=== PATIENT | female | born 1965 | race Caucasian/White ===

== ENCOUNTER → 2016-03-19 | Outpatient (CLI) | payer OTHER ==
[~2016-03-19] MED LIST: AMIT25TA9 PO; CLIN300C3 PO; GADOBUTROL 7.5 MMOL/7.5 ML (GADAVIST) VIAL IV ONE; HYDR-3454 PO; LVT.1T PO; PRD20T PO; PREG50C PO; SERT50TA PO
--- OUTSIDE RECORDS SUMMARY | 2016-03-19 14:01 | XMS REPORT | Continuity of Care Document ---
Author Author [facility] Organization [facility] Address Unknown Phone Unavailable Care Team Providers Care Smelter Operator Name Role Phone BENJIE AMANDA MD PCP Insurance Providers Payer Name Policy Number Subscriber Name Relationship [employer] [place] [id number] Gem Robledo 18 Self / Same As Patient Advance Directives Directive Response Recorded Date/Time Advance Directives No 10/18/14 6:45am Health Care Power of Java Android Developer No 10/18/14 6:45am Organ Donor Yes 10/18/14 6:45am Problems No problem information available. Medications Current Home Medications Medication Dose Units Route Directions Days/Qty Instructions Start Date Pregabalin 50 Mg 50 Mg Oral Twice A Day 08/12/11 Sertraline Hcl 50 Mg 1 Tab Oral Daily 30 08/12/11 Levothyroxine Sodium 100 Mcg 1 Each Oral Daily 08/12/11 Amitriptyline Hcl 25 Mg 25 Mg Oral Daily 10/11/14 Hydrocodone/Acetaminophen 1 Each 1-2 Each Oral Every 4HRS 40 10/18/14 Prednisone 20 Mg 20 Mg Oral Daily 12 TAKE 3 TABLETS BY MOUTH DAILY FOR 2 DAYS THEN TAKE 2 TABLETS BY MOUTH DAILY FOR 2 DAYS THEN TAKE 1 TABLET BY MOUTH DAILY FOR 2 DAYS 10/18/14 Clindamycin Hcl 300 Mg 300 Mg Oral Three Times A Day 21 10/18/14 Social History Social History Problem Response Recorded Date/Time Alcohol Use Denies Use 10/18/2014 6:45am Recreational Drug Use No 10/18/2014 6:45am Recent Foreign Travel No 12/25/2015 8:46am Sexually Transmitted Disease No 10/18/2014 6:45am HIV/AIDS No 10/18/2014 6:45am Sexually Transmitted Disease No 10/18/2014 6:45am Hx Sexually Transmitted Disorders No 11/15/2008 7:30am Hospital Discharge Instructions No hospital discharge instructions. Plan of Care Prescriptions See Medication Section Functional Status No functional status results. Allergies, Adverse Reactions, Alerts No known allergies. Immunizations No immunization records. Vital Signs No known vital signs results. Results No known relevant diagnostic tests, laboratory data and/or discharge summary. Procedures No known history of procedures. Encounters Encounter Location Arrival/Admit Date Discharge/Depart Date Attending Provider Discharged Recurring [facility] 01/15/16 9:01am 3:40pm BENJIE AMANDA MD
--- NOTE | 2016-03-19 15:24 | Diagnostic Imaging Report ---
CLINICAL INDICATION: Patient had intermittent memory issues x4-5 years and peripheral neuropathy in both legs/feet x7-8 years. Patient is pre-diabetic. Patient has concern with multiple sclerosis. EXAM: MRI of the brain performed without and with 7 cc of Gadavist IV contrast. Sequences include axial DWI, ADC map, axial gradient echo, axial T2, axial FLAIR, sagittal FLAIR, axial T1, axial T1 post IV contrast, coronal T1 fat-sat post IV contrast, and sagittal T1 post IV contrast. COMPARISON: MRI of the brain performed without and with IV contrast dated 09/14/2012. FINDINGS: There is no evidence of acute cerebral infarct, intracranial hemorrhage, abnormal IV contrast enhancement, or gross mass effect. Stable nonenhancing patchy areas of high T2 signal white matter changes involving both cerebral hemispheres, periventricular regions, and tony. The pituitary gland, sella, and suprasellar regions are unremarkable as visualized. There is normal trimble-white matter distinction. The brain parenchymal volume appears appropriate for patient's age. There is no significant midline shift or herniation. The visualized kiana of Wing vascular structures have normal flow void appearance. There is no evidence of hydrocephalus. The basal cisterns are unremarkable. The skull, extracranial soft tissue, and orbits are unremarkable. There is moderate mucosal thickening in the right maxillary sinus. There is minimal mucosal thickening involving the left maxillary sinus and ethmoid sinus. IMPRESSION: 1: Stable MRI of the brain with no evidence of acute intracranial process. There is no evidence of abnormal IV contrast enhancement. 2: Stable nonspecific high T2 signal white matter abnormalities involving both cerebral hemispheres and tony. Chronic small vessel ischemic disease could be considered. A superimposed component of a demyelinating process cannot be completely excluded. Clinical correlation would better evaluate. 3: Paranasal sinus disease. Dictated by: Dictated on workstation # [id number]
== END ==
LOC: RAD 13:58
PROVIDERS: ATTEND Family Medicine
DX: G62.9 Polyneuropathy, unspecified (principal); R20.0 Anesthesia of skin; R73.03 Prediabetes
CPT/HCPCS: 70553

== ENCOUNTER → 2016-05-18 | Outpatient (CLI) | payer OTHER ==
[~2016-05-18] MED LIST changes: -GADOBUTROL 7.5 MMOL/7.5 ML (GADAVIST) VIAL IV ONE
--- OUTSIDE RECORDS SUMMARY | 2016-05-18 09:56 | XMS REPORT | Continuity of Care Document ---
Author Author [facility] Organization [facility] Address Unknown Phone Unavailable Care Team Providers Care Landing Signal Officer Name Role Phone BENJIE AMANDA MD PCP Insurance Providers Payer Name Policy Number Subscriber Name Relationship [employer] [place] [id number] Gem Robledo 18 Self / Same As Patient Advance Directives Directive Response Recorded Date/Time Advance Directives No 10/18/14 6:45am Health Care Power of Team Automobile Assembler No 10/18/14 6:45am Organ Donor Yes 10/18/14 [...] Attending Provider Discharged Recurring [facility] 01/15/16 9:01am 3:40pm BENJIE AMANDA MD
--- NOTE | 2016-05-18 16:06 | Diagnostic Imaging Report ---
PROCEDURE: US Thyroid. TECHNIQUE: Multiple real-time grayscale images were obtained of the thyroid in various projections. INDICATION: Follow-up thyroid nodule. FINDINGS: The right thyroid lobe is 4.4 x 1.6 x 1.2 cm. The left lobe is 4.8 x 1.3 x 1.5 cm. In the inferior aspect of the left thyroid lobe there is a 2.3 x 1.2 x 1.6 cm isoechoic solid nodule with internal vascularity demonstrated with color Doppler. There is another nodule in the left lobe measuring 0.7 x 0.9 x 1.3 cm seen in the mid left thyroid lobe. This is a hypoechoic nodule and does not have definitive internal vascularity. This nodule could be outside the thyroid abutting the left thyroid lobe and is unchanged from the previous study. This could represent a parathyroid nodule. The right lobe demonstrates two nodules, one measuring 0.6 x 0.5 x 0.7 cm and the other measuring 0.7 x 0.6 x 0.4 cm both in the mid right thyroid lobe and both appear to contain calcifications. These are not changed significantly from prior exam of 04/11/2015. IMPRESSION: Stable multiple thyroid nodules. The hypoechoic nodule abutting the left thyroid lobe might be outside the thyroid and could be a parathyroid nodule. Dictated by: Dictated on workstation # [id number]
== END ==
LOC: RAD 09:54
PROVIDERS: ATTEND Otolaryngology Otolaryngology/Facial Plastic Surgery
DX: E04.2 Nontoxic multinodular goiter (principal)
CPT/HCPCS: 76536

== ENCOUNTER → 2016-08-18 | Outpatient (CLI) | payer OTHER ==
--- NOTE | 2016-08-19 17:53 | Diagnostic Imaging Report ---
Bilateral screening mammogram The current study was also evaluated with a Computer Aided Detection (CAD) system. Indication: Screening. No current complaints stated on the questionnaire. COMPARISON: 05/28/15 Findings: The breasts are composed of a heterogeneously dense parenchyma which may decrease mammographic sensitivity. There is a no mass, architectural distortion or suspicious consent the patient. Scattered benign-appearing calcifications are seen. Allowing for technique and positional differences, no suspicious change is seen. IMPRESSION: Dense breasts with no definite change. ACR BI-RADS Category 2: Benign findings. Result letter will be mailed to the patient. Note: At least 10% of breast cancer is not imaged by mammography. Dictated by: Dictated on workstation # [id number]
== END ==
LOC: RAD 08:55
PROVIDERS: ATTEND Nurse Practitioner Family
DX: Z12.31 Encounter for screening mammogram for malignant neoplasm of breast (principal)
CPT/HCPCS: 77067

== ENCOUNTER → 2017-05-04 | Outpatient (CLI) | payer OTHER ==
--- NOTE | 2017-05-04 11:35 | Diagnostic Imaging Report ---
PROCEDURE: US Thyroid. TECHNIQUE: Multiple real-time grayscale images were obtained of the thyroid in various projections. INDICATION: Thyroid nodules, followup. COMPARISON: Correlation is made with prior thyroid ultrasound from 05/18/2016. FINDINGS: The right lobe of the thyroid measures 4.1 x 1.7 x 1.2 cm and left lobe measures 4.8 x 1.3 x 1.3 cm. The solid isoechoic mass involving the lower pole of the left lobe of the thyroid is again noted measuring 2.3 x 1.3 x 1.6 cm. This compares with 2.3 x 1.2 x 1.6 cm. The previously noted hypoechoic nodule along the margin of the left lobe measures 0.7 x 0.9 x 1.3 cm, stable when compared with prior exam. There is a single nodule in the mid portion of the right lobe measuring approximately 0.7 x 0.6 x 0.6 cm. Previously noted second nodule in the right lobe is not appreciated on today's exam. No new thyroid nodule is identified. IMPRESSION: Overall stable bilateral thyroid nodules when compared with prior examination from 05/18/2016. Dictated by: Dictated on workstation # [id number]
== END ==
LOC: RAD 09:32
PROVIDERS: ATTEND Otolaryngology Otolaryngology/Facial Plastic Surgery
DX: E04.2 Nontoxic multinodular goiter (principal)
CPT/HCPCS: 76536

== ENCOUNTER → 2017-06-10 | Outpatient (CLI) | payer OTHER ==
--- NOTE | 2017-06-10 10:50 | Diagnostic Imaging Report ---
PROCEDURE: CT sinuses without contrast TECHNIQUE: Multiple contiguous axial images were obtained through the sinuses without the use of intravenous contrast. Coronal and sagittal reformations were then performed. INDICATION: Chronic left sinus drainage. FINDINGS: The previous CT sinus exam of 01/11/2017 noted mucosal thickening and polyposis of the right maxillary antrum. There is also a postsurgical defect involving the medial wall of the right maxillary antrum. Those findings are again evident on this study and do not seem to have changed significantly. The mucosal thickening and suspected polyp measure approximately 1.2 cm maximum depth. At noted on the prior exam, the left maxillary sinus is generally clear and well aerated. The ostiomeatal complex on the left is patent. The ethmoid, sphenoid and frontal sinuses are also clear. The nasal septum is slightly deviated to the right. The osseous structures are intact. The orbits are symmetrical and within normal limits. The intracranial contents were visualized and show no sign of an acute abnormality. IMPRESSION: 1. There are postsurgical changes involving the right maxillary antrum consistent with prior right maxillary antrostomy procedure. There is persistent mucosal thickening and polyposis of the right maxillary antrum. Overall, there has been no significant change since the prior exam. 2. The sinuses are otherwise clear and well aerated. Dictated by: Dictated on workstation # [id number]
== END ==
LOC: RAD 08:20
PROVIDERS: ATTEND Otolaryngology Otolaryngology/Facial Plastic Surgery
DX: J34.89 Other specified disorders of nose and nasal sinuses (principal); Z93.8 Other artificial opening status
CPT/HCPCS: 70486

== ENCOUNTER → 2017-09-02 | Outpatient (CLI) | payer OTHER ==
--- NOTE | 2017-09-02 13:35 | Diagnostic Imaging Report ---
INDICATION: Routine screening. Comparison is made with prior mammogram from 08/18/2016 and 05/28/2015. 2-D and 3-D bilateral screening mammography was performed with CAD. The current study was also evaluated with a Computer Aided Detection (CAD) system. FINDINGS: Both breasts remain heterogeneously dense, limiting the sensitivity of mammography. No mass or malignant-appearing microcalcifications are seen. The axillae are unremarkable. IMPRESSION: No mammographic features suspicious for malignancy are identified. ACR BI-RADS Category 1: Negative. Result letter will be mailed to the patient. Note: At least 10% of breast cancer is not imaged by mammography. Dictated by: Dictated on workstation # [id number]
== END ==
LOC: RAD 08:00
PROVIDERS: ATTEND Nurse Practitioner Family
DX: Z12.31 Encounter for screening mammogram for malignant neoplasm of breast (principal)
CPT/HCPCS: 77067

== ENCOUNTER → 2017-10-19 | Outpatient (CLI) | payer OTHER ==
[~2017-10-19] MED LIST changes: +ASPI-586 PO; +ATOR10TA66 PO; +CATHETER FLUSH 10 ML SYR IV PRN; +CETI10TA17 PO; +CHOL100045 PO; +CINN500C2 PO; +FERR142T7 PO; +GUAI600T43 PO; +LEVO100T7 PO; +NF-MAG64T PO; +PREG50CA2 PO; +SERT50TA9 PO; +tumeric PO
[2017-10-19 09:46] VITALS: BP 123/68
[2017-10-19 09:53] VITALS: BP 172/78
--- NOTE | 2017-10-19 18:53 | STRESS TEST ---
DATE OF SERVICE: 10/19/2017 EXERCISE MYOVIEW STRESS TEST REPORT Baseline heart rate is 65, baseline blood pressure 113/78. Baseline EKG sinus rhythm with no ischemic changes. SUMMARY: The patient was injected with 9.91 mCi of technetium-99 Myoview and the resting images were obtained. Then, the patient started exercising with a baseline heart rate, blood pressure and EKG mentioned above. Early in exercise, the patient started having EKG changes with ST depression in II, III, aVF, V4, V5 and V6. She was able to exercise for 6 minutes 57 seconds. With peak exercise level, EKG was showing [address] depression horizontal in leads II, III and aVF. [address] depression in V4, V5 and V6. Blood pressure was 146/67. During recovery, her EKG returned to baseline and blood pressure returned to baseline. The resting and stress images were reviewed and compared in the short axis, horizontal long axis, and vertical long axis views. Review of the images showed reversible ischemia involving the anterior wall, anteroapical segment and through apex. SSS is 20. SDS is 20, transient ischemic dilatation with TID value 1.41. On the gated images, the left ventricle is normal in size with normal contractility. Calculated ejection fraction 66%. CONCLUSION: 1. Fair exercise tolerance, a total of 6 minutes 57 seconds on standard Juan Alberto protocol, total of 8.3 METS achieving 90% of maximum expected heart rate. 2. Appropriate heart rate and blood pressure response to exercise returned to baseline during recovery. 3. Significantly abnormal EKG with exercise persisted to a long period of time during recovery and resolved at the end of the test. 4. Reversible ischemia involving the whole anterior wall, anteroapical segment and anterior septum. 5. Normal left ventricular size with normal contractility. Calculated ejection fraction of 66%. 6. The patient was offered to have a cardiac catheterization today, she elected to wait due to family obligation and she will return in 2 days for the procedure. Job ID: [id number] DocumentID: [id number] Dictated Date: 10/19/2017 14:01:31 Nut Processing Supervisor Date: 10/19/2017 18:52:41 Dictated By: MARK PERLA MD
== END ==
LOC: CARD 07:58
PROVIDERS: ATTEND Internal Medicine Cardiovascular Disease
DX: R07.89 Other chest pain (principal); E78.2 Mixed hyperlipidemia; R73.03 Prediabetes; E03.9 Hypothyroidism, unspecified; G62.9 Polyneuropathy, unspecified
CPT/HCPCS: 78452; 93005; 93017

== ENCOUNTER 2017-10-21 07:34 | Day surgery (SDC) | payer OTHER ==
[2017-10-21] VITALS (12 sets, daily range): BP systolic 112–137; BP diastolic 72–83
[~2017-10-21] VITALS: Ht 170.2 cm; Wt 81.2 kg
[~2017-10-21 07:34] MED LIST changes: -ASPI-586 PO; -ATOR10TA66 PO; -CATHETER FLUSH 10 ML SYR IV PRN; -CETI10TA17 PO; -CHOL100045 PO; -CINN500C2 PO; -FERR142T7 PO; -GUAI600T43 PO; -LEVO100T7 PO; -NF-MAG64T PO; -PREG50CA2 PO; -SERT50TA9 PO; -tumeric PO
[2017-10-21] MEDS ORDERED: HEParin (CATH LAB) 2,000 ML IV ONE (07:50)
[2017-10-21] MEDS ORDERED: LIDOCAINE 1% INJ 20 ML 20 ML VIAL ONE (07:50)
[2017-10-21] MEDS ORDERED: NS IV 1000 ML 1,000 ML ONE (07:50)
[2017-10-21] MEDS ORDERED: NS IV 1000 ML 1,000 ML IV SCH (07:56)
--- NOTE | 2017-10-21 08:25 | Diagnostic Imaging Report ---
INDICATION: Coronary artery disease PA chest obtained at 8:17 a.m. Heart and mediastinal silhouette are normal in appearance. The lungs are clear. There is no pneumothorax or pleural fluid. IMPRESSION: Negative chest. Dictated by: Dictated on workstation # [id number]
[2017-10-21 08:28] LABS: HEMOGLOBIN 12.6 G/DL (11.5-16.0); MEAN PLATELET VOLUME 9.6 FL (7.4-10.4); RED BLOOD COUNT 4.31 10^6/uL (4.35-5.85); RED CELL DISTRIBUTION WIDTH 12.8 % (10.0-14.5); WHITE BLOOD COUNT 6.4 10^3/uL (4.3-11.0)
[2017-10-21] MEDS ORDERED: PREG50CA2 PO (08:34)
[2017-10-21] MEDS ORDERED: LEVO100T7 PO (08:35)
[2017-10-21] MEDS ORDERED: SERT50TA9 PO (08:35)
[2017-10-21] MEDS ORDERED: ATOR10TA66 PO (08:36)
[2017-10-21] MEDS ORDERED: ASPI-586 PO (08:36)
[2017-10-21 08:37] LABS: PROTHROMBIN TIME PATIENT 13.3 SEC (12.2-14.7)
[2017-10-21] MEDS ORDERED: CHOL100045 PO (08:37)
[2017-10-21] MEDS ORDERED: tumeric PO (08:39)
[2017-10-21] MEDS ORDERED: NF-MAG64T PO (08:39)
[2017-10-21] MEDS ORDERED: FERR142T7 PO (08:39)
[2017-10-21] MEDS ORDERED: CETI10TA17 PO (08:40)
[2017-10-21] MEDS ORDERED: CINN500C2 PO (08:41)
[2017-10-21] MEDS ORDERED: GUAI600T43 PO (08:41)
[2017-10-21 08:46] LABS: ALANINE AMINOTRANSFERASE 23 U/L (0-55); ALBUMIN 4.6 GM/DL (3.2-4.5); ALKALINE PHOSPHATASE 73 U/L (40-136); BILIRUBIN,TOTAL 0.3 MG/DL (0.1-1.0); BUN/CREATININE RATIO 24; CALCIUM 9.6 MG/DL (8.5-10.1); CARBON DIOXIDE 27 MMOL/L (21-32); CHLORIDE 105 MMOL/L (98-107); CHOLESTEROL 168 MG/DL (< 200); CREATININE SERUM 0.58 MG/DL (0.60-1.30); GFR ESTIMATED > 60; GLUCOSE 76 MG/DL (70-105); HDL CHOLESTEROL 48 MG/DL (40-60); POTASSIUM 4.1 MMOL/L (3.6-5.0); SODIUM 141 MMOL/L (135-145); TOTAL PROTEIN 7.4 GM/DL (6.4-8.2); TRIGLYCERIDES 178 MG/DL (<150); VLDL CHOLESTEROL 36 MG/DL (5-40)
[2017-10-21] MEDS ORDERED: MIDAZOLAM 5 MG/5 ML (VERSED) VIAL ONE (09:15)
[2017-10-21] MEDS ORDERED: fentaNYL INJECTION 100 MCG/2 ML AMP ONE (09:15)
--- NOTE | 2017-10-21 09:48 | Cardiac Procedure Note-CS/ASA ---
Pre-Procedure Note Pre-Op Procedure Note H&P Reviewed The H&P was reviewed, patient examined and no changes noted. Date H&P Reviewed: Oct 21, 2017 Time H&P Reviewed: 09:47 Conscious Sedation Pre-Proced Time Reviewed: 09:47 ASA Class: 3 Airway Mallampati Classification: ([place] appropriate class) I. II. III, IV Lungs Heart ASA score ASA 1: a normal healthy patient ASA 2: a patient with a mild systemic disease (mid diabetes, controlled hypertension, obesity x ASA 3: a patient with a severe systemic disease that limits activity (angina , COPD, prior Myocardial infarction) ASA 4: a patient with an incapacitating disease that is a constant threat to life (CHF, renal failure) ASA 5: a moribund patient not expected to survive 24 hrs. (ruptured aneurysm) ASA 6: a declared brain patient whose organs are being harvested. For emergent operations, add the letter E after the classification Grade 3 Sedation Plan: Analgesia, Amnesia, Plan communicated to team members, Discussed options with patient/fam, Discussed risks with patient/fam Note The patient is an appropriate candidate to undergo the planned procedure, sedation, and anesthesia. The patient immediately re-assessed prior to indication. MARK PERLA MD Oct 21, 2017 09:48
[2017-10-21] MEDS ORDERED: HEParin 1000 UNIT/ML (10ML VIAL) FOR BOLUS ONE (09:52)
[2017-10-21] MEDS ORDERED: EPTIFIBATIDE BOLUS 20 ML IV ONE (09:52)
[2017-10-21] MEDS ORDERED: NITRO DRIP 25000 MCG/D5W 250 ML IV ONE (09:53)
[2017-10-21] MEDS ORDERED: ADENOSINE 3 MG/1 ML (ADENOSCAN) 30ML VIAL IV ONE (09:58)
[2017-10-21] MEDS ORDERED: PATIENT MAY USE OWN MEDS, ALL PO SCH (10:30)
--- NOTE | 2017-10-21 10:35 | Cardiac Cath Report ---
Cardiac Cath Report Physician (s)/Medical Practice Administrator (s) Physician MARK PERLA MD Pre-Procedure Diagnosis Pre-Procedure Diagnosis: coronary artery disease Post-Procedure Note Procedure Start Date: Oct 21, 2017 Procedure Start Time: 10:31 Name of Procedure: Left heart catheterization FFR to the circumflex artery Stent to the LAD Findings/Procedure Note PROCEDURE NOTE: After explaining the procedure to the patient, all pros and cons were explained , all questions were answered. The patient signed the consent and then she was placed on the cardiac catheterization laboratory. Groin was prepped SL fashion local anesthesia was used. Sheath placed in right femoral the artery. Regina right and left catheter were used to access the coronary system. Regina right was used to cross the aortic valve to the left ventricular cavity , pressure was measured. Left ventricular gram was done. Patient had a borderline lesion at the ostium of the circumflex artery I was concerned about it, I proceeded with FFR evaluation after giving the patient 5000 units of heparin and using FL guide. FFR was 1.0. Line patient has subtotal occlusion in the mid LAD. I proceeded with advancement of the same wire across the lesion parked distally then I predilated with 2.515 mm balloon and then proceeded with the appointment of 2.7518 mm ultra 9 drug-eluting stent expanded to 3.0 mm with excellent results. No residual stenosis was noted. At the end of the procedure the sheath was removed. Closure device was used FINDINGS: Hemodynamics LV 128/19, end-diastolic pressure of 19 Aorta 127/75 mean of 83 ANATOMY: Left Main history of obstructive disease Left Anterior Descending has severe subtotal occlusion at the mid LAD successful balloon antiplastic in-stent deployment using Alpine 2.7518 mm expanded to 3.0 mm with excellent results Left Circumflex has some haziness at the proximal portion, FFR was 1.0. Lesion was nonobstructive disease Right Coronory Artery is not artery with mild disease nonobstructive disease LV Gram is normal in size with normal contracted isthmus ejection fraction 60 percent CONCLUSION: 1. Subtotal occlusion at the mid LAD with slow flow, successful balloon to plasty then stent deployment using Alpine 2.7518 mm expanded to 3.0 mm with excellent results and no residual stenosis was noted 2. Mild disease of the proximal/ostial circumflex artery, FFR was done showing 1.0. Nonobstructive disease 3. Large dominant right coronary artery with mild disease nonobstructive disease 4. Normal left ventricular size and systolic function estimated ejection fraction 60 percent DISCUSSION AND RECOMMENDATION: I will continue maximizing medical therapy Anesthesia Type: Conscious Sedation Estimated blood loss (mL): 10 ml Contrast Amount: 140 ml Total Radiation Dose: 1067 mGy Post-Procedure Diagnosis Post-operative diagnosis: Chest pain Coronary artery disease Hyperlipidemia Hypertension MARK PERLA MD Oct 21, 2017 10:35
[2017-10-21] MEDS ORDERED: ASPIRIN 325 MG (5 GR) TABLET ONE (10:41)
[2017-10-21] MEDS ORDERED: TICAGRELOR 90 MG TABLET (BRILINTA) PO ONE (10:41)
[2017-10-21] MEDS: NS IV 1000 ML 1,000 ML IV SCH ×2 (11:23→19:36)
[2017-10-21] MEDS ORDERED: ONDANSETRON 4 MG/2 ML (SDV) Z0FRAN ONE (12:55)
[2017-10-21] MEDS ORDERED: ONDANSETRON 4 MG/2 ML (SDV) Z0FRAN IVP PRN (13:00)
--- OUTSIDE RECORDS SUMMARY | 2017-10-21 16:21 | XMS REPORT | CCD ---
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 Name Role Phone PP Unavailable CCM Unavailable Summary Purpose Interface Exchange Insurance Providers Payer name Policy type / Coverage type Covered libertarian ID Effective Begin Date Effective End Date Blue Cross Blue [facility] Blue Cross/Blue Shield [id number] 2015 Unknown Family history Father Diagnosis Age At Onset Cancer Unknown Mother Diagnosis Age At Onset Stroke Unknown Social History Social History Element Codes Description Effective Dates Marital status Unknown Dennise 08/27/2014 Number of children Unknown 0 08/27/2014 Employment Unknown Currently employed [employer] 08/27/[address]: 171051231 Never smoker 08/27/[address]: 672160130 Never drinks alcohol 08/27/2014 Allergies, Adverse Reactions, Alerts Allergies, Adverse Reactions, Alerts data not found Past Medical History Illness Codes Condition Status Onset Date Resolved Date Atrophy of thyroid (acquired) ICD-9: 244.8 ICD-10: E03.4 Active 03/15/2016 Unknown Weakness ICD-9: 780.79 ICD-10: R53.1 Active 03/15/2016 Unknown White matter disease, unspecified ICD-9: 348.89 ICD-10: R90.82 Active 03/15/2016 Unknown Major depressive disorder, recurrent, mild ICD-9: 296.31 ICD-10: F33.0 Active 11/17/2015 Unknown Other abnormal glucose ICD-9: 790.29 ICD-10: R73.09 Active 11/17/2015 Unknown Psoriasis vulgaris ICD -9: 696.1 ICD-10: L40.0 Active 11/17/2015 Unknown Encounter for gynecological examination (general) (routine ) without abnormal findings ICD-9: V72.31 ICD-10: Z01.419 Active 05/05/2015 Unknown Encounter for screening for malignant neoplasm of cervix ICD-9: V76.2 ICD-10: Z12.4 Active 05/05/2015 Unknown Encounter for screening mammogram for malignant neoplasm of breast ICD-9: V76.12 ICD-10: Z12.31 Active 05/05/2015 Unknown Dysuria ICD-9: 788.1 Active 09/24/2014 Unknown ACUTE SINUSITIS ICD-9 : 461.9 Active 09/10/2014 Unknown Problems Condition Codes Effective Dates Condition Status Atrophy of thyroid (acquired) ICD-9: 244.8 ICD-10: E03.4 03/15/2016 Active Weakness ICD-9: 780.79 ICD-10: R53.1 03/15/2016 Active White matter disease, unspecified ICD-9: 348.89 ICD-10: R90.82 03/15/2016 Active Major depressive disorder, recurrent, mild ICD-9: 296.31 ICD-10: F33.0 11/17/2015 Active Other abnormal glucose ICD-9: 790.29 ICD-10: R73.09 11/17/2015 Active Psoriasis vulgaris ICD -9: 696.1 ICD-10: L40.0 11/17/2015 Active Encounter for gynecological examination (general) (routine ) without abnormal findings ICD-9: V72.31 ICD-10: Z01.419 05/05/2015 Active Encounter for screening for malignant neoplasm of cervix ICD-9: V76.2 ICD-10: Z12.4 05/05/2015 Active Encounter for screening mammogram for malignant neoplasm of breast ICD-9: V76.12 ICD-10: Z12.31 05/05/2015 Active Dysuria ICD-9: 788.1 09/24/2014 Active ACUTE SINUSITIS ICD-9 : 461.9 09/10/2014 Active Medications Medication Codes Instructions Start Date Stop Date Status Fill Instructions clobetasol 0.05 % shampoo RxNorm: 936095 1 Application TOP daily as needed 02/14/2017 09/11/2017 Active clobetasol 0.05 % scalp solution RxNorm: 644887 1 Application TOP BID 02/14/2017 06/13/2017 Active levothyroxine 100 mcg tablet RxNorm: 865315 TAKE ONE TABLET BY MOUTH ONCE DAILY 01/24/2017 No Stop Date Active Acular 0.5 % eye drops RxNorm: 390971 1 Drop(s) OPH daily 01/10 No Stop Date Active amitriptyline 10 mg tablet RxNorm: 890802 TAKE ONE TABLET BY MOUTH ONCE DAILY 12/15/2016 06/12/2017 Active Lipitor 10 mg tablet RxNorm: 043814 TAKE 1 TABLET BY MOUTH DAILY 12/02/2016 05/30/2017 Active Generic For:LIPITOR 10MG TAB 12/01/2016 5:09:29 PM Lipitor 10 mg tablet RxNorm: 058438 TAKE 1 TABLET BY MOUTH DAILY 11/04/2016 12/01/2016 Inactive Generic For:LIPITOR 10MG TAB 11/03/2016 12:46:39 PM sertraline 50 mg tablet RxNorm: 950332 1.5 Tablet(s) PO QHS 03/201605/02/2017 Active Lyrica 50 mg capsule RxNorm: 177838 1 Capsule(s) PO TID 201612/04/2016 Inactive Lyrica 50 mg capsule RxNorm: 182562 1 Capsule(s) PO TID 201612/01/2016 Inactive clobetasol 0.05 % scalp solution RxNorm: 957777 1 Application TOP BID 08/18/2016 12/15/2016 Inactive Lipitor 10 mg tablet RxNorm: 689519 1 Tablet(s) PO daily 201611/03/2016 Inactive Lipitor 10 mg tablet RxNorm: 533740 1 Tablet(s) PO daily 201603/24/2016 Inactive Lipitor 10 mg tablet RxNorm: 276142 1 Tablet(s) PO daily 201607/12/2016 Inactive sertraline 50 mg tablet RxNorm: 674494 1.5 Tablet(s) PO QHS 10/04/2016 Inactive amitriptyline 10 mg tablet RxNorm: 731011 1/2 Tablet(s) PO daily 03/16/2016 No Stop Date Active levothyroxine 100 mcg tablet RxNorm: 415756 TAKE ONE TABLET BY MOUTH ONCE DAILY 01/20/2016 2017 Inactive sertraline 50 mg tablet RxNorm: 489076 1.5 Tablet(s) PO QHS 03/18/2016 Inactive Generic For:ZOLOFT 50 MG TAB 03/17/2015 1:56:21 PM clobetasol 0.05 % scalp solution RxNorm: 675238 1 Application TOP BID 11/20/2015 03/18/2016 Inactive Lyrica 50 mg capsule RxNorm: 410067 1 Capsule(s) PO TID 201509/05/2016 Inactive sertraline 50 mg tablet RxNorm: 497232 1.5 Tablet(s) PO QHS 11/19/2015 Inactive Generic For:ZOLOFT 50 MG TAB 03/17/2015 1:56:21 PM urea 20 % topical cream RxNorm: 379104 1 Application TOP BID 12/17/2015 Inactive clobetasol 0.05 % scalp solution RxNorm: 888401 1 Application TOP BID 11/18/2015 11/19/2015 Inactive sertraline 50 mg tablet RxNorm: 748001 1 Tablet(s) PO QHS TAKE ONE TABLET BY MOUTH AT BEDTIME 10/20/2015 11/17/2015 Inactive Generic For:ZOLOFT 50 MG TAB 03/17 1:56:21 PM Acular 0.5 % eye drops RxNorm: 906945 1 Drop(s) OPH daily 09/0901/09/2017 Inactive amitriptyline 10 mg tablet RxNorm: 516801 Tablet(s) PO daily 03/15/2016 Inactive [SAVINGS FOR NON-COVERED DRUGS -- BIN:[id number], PCN: [id number], Group: XXXXX , ID# [id number], Questions: . THIS IS NOT INSURANCE.] levothyroxine 100 mcg tablet RxNorm: 662519 1 Tablet(s) PO daily 07/30/2015 01/19/2016 Inactive sertraline 50 mg tablet RxNorm: 000289 1 Tablet(s) PO QHS TAKE ONE TABLET BY MOUTH AT BEDTIME 06/17/2015 10/14/2015 Inactive Generic For:ZOLOFT 50 MG TAB 03/17 1:56:21 PM triamcinolone acetonide 0.1 % topical cream RxNorm: 2957617 1 TOP TID as needed 05/09/2015 09/05/2015 Inactive triamcinolone acetonide 0.1 % topical cream RxNorm: 5490714 1 TOP TID as needed 05/09/2015 05/08/2015 Inactive Transderm-Scop 1.5 mg transdermal patch (1 mg over 3 days) RxNorm: 578344 1 Patch TD Q72H 05/06/2015 07/04/2015 Inactive Lyrica 50 mg capsule RxNorm: 340202 1 Capsule(s) PO TID 201506/25/2016 Inactive sertraline 50 mg tablet RxNorm: 162410 TAKE ONE TABLET BY MOUTH AT BEDTIME 03/17/2015 06/14/2015 Inactive Generic For:ZOLOFT 50 MG TAB 03/17/2015 1:56:21 PM sertraline 50 mg tablet RxNorm: 156259 Tablet(s) PO QHS 201403/09/2015 Inactive doxycycline hyclate 100 mg tablet RxNorm: 387435 1 Tablet(s) PO BID 09/11/2014 09/17/2014 Inactive Sandy Allergy 180 mg tablet RxNorm: 737034 1 Tablet(s) PO daily 09/11/2014 10/10/2014 Inactive prednisone 20 mg tablet RxNorm: 797316 1 Tablet(s) PO BID 09/0509/04/2014 Inactive prednisone 20 mg tablet RxNorm: 916398 1 Tablet(s) PO BID 09/0509/09/2014 Inactive levofloxacin 500 mg tablet RxNorm: 991738 1 Tablet(s) PO daily 08/27/2014 09/05/2014 Inactive levothyroxine 100 mcg tablet RxNorm: 425688 1 Tablet(s) PO daily 08/27/2014 11/24/2014 Inactive Sandy-D 12 Hour 60 mg-120 mg tablet,extended release RxNorm: 280498 1 Tablet(s) PO BID 08/27/2014 09/25/2014 Inactive Lyrica 50 mg capsule RxNorm: 470868 1 Capsule(s) PO TID 201411/17/2014 Inactive Lyrica 50 mg capsule RxNorm: 653856 1 Capsule(s) PO TID 201408/19/2014 Inactive sertraline 50 mg tablet RxNorm: 810752 Tablet(s) PO QHS 201408/12/2014 Inactive sertraline 50 mg tablet RxNorm: 755916 Tablet(s) PO QHS 201410/11/2014 Inactive amitriptyline 10 mg tablet RxNorm: 471550 Tablet(s) PO daily 08/09/2014 Inactive [SAVINGS FOR NON-COVERED DRUGS -- BIN:[id number], PCN: ASPROD1, Group: XXXXX , ID# [id number], Questions: . THIS IS NOT INSURANCE.] Transderm-Scop 1.5 mg transdermal 72 hour patch RxNorm: 263305 1 TD apply 1 patch to skin behind ear q 3 days, remove old patch 07/11/2014 07/22/2014 Inactive [ SAVINGS FOR NON-COVERED DRUGS -- BIN:[id number], PCN: ASPROD1, Group: XXXXX, ID# [id number], Questions: . THIS IS NOT INSURANCE.] Transderm-Scop 1.5 mg transdermal 72 hour patch RxNorm: 745860 1 TD apply 1 patch to skin behind ear q 3 days, remove old patch 07/11/2014 07/10/2014 Inactive amitriptyline 10 mg tablet RxNorm: 323730 1 Tablet(s) PO daily 07/04/2014 07/10/2014 Inactive [SAVINGS FOR NON-COVERED DRUGS -- BIN:[id number], PCN: ASPROD1, Group: XXXXX, ID# [id number], Questions: . THIS IS NOT INSURANCE.] amitriptyline 10 mg tablet RxNorm: 892465 1 Tablet(s) PO daily 07/04/2014 07/03/2014 Inactive Zyrtec 10 mg tablet RxNorm: 6508936 1 Tablet(s) PO daily No Start Date Active lutein oral RxNorm: 84115 oral No Start Date Active Flonase Allergy Relief 50 mcg/actuation nasal spray, suspension RxNorm: 7895719 1 [place] NASAL QHS as needed No Start Date Active Vitamin D3 2,000 unit tablet RxNorm: 110253 1 Tablet(s) PO daily No Start Date Active Calcium RxNorm: 1 Tablet(s) PO daily No Start Date Active Gillian Aspirin oral RxNorm: 150291 oral No Start Date Active Acular 0.5 % eye drops RxNorm: 116746 1 Drop(s) OPH daily No Start Date 09/09/2015 Inactive Vitamin C RxNorm: PO No Start Date 2016 Inactive Medication Administered No Medication Administered data Immunizations No Immunization data Assessments Condition Codes Effective Dates Atrophy of thyroid (acquired) ICD-10: E03.4 ICD-9: 244.8 03/16/2016 White matter disease, unspecified ICD-10: R90.82 ICD-9: 348.89 03/16/2016 Weakness ICD-10: R53.1 ICD-9: 780.79 03/16/2016 Psoriasis vulgaris ICD-10: L40.0 ICD-9: 696.1 11/18/2015 Other abnormal glucose ICD-10: R73.09 ICD-9: 790.29 11/18/2015 Major depressive disorder, recurrent, mild ICD-10: F33.0 ICD-9: 296.31 11/18/2015 Encounter for screening for malignant neoplasm of cervix ICD -10: Z12.4 ICD-9: V76.2 05/06/2015 Encounter for gynecological examination (general) (routine) without abnormal findings ICD-10: Z01.419 ICD-9: V72.31 05/06/2015 Encounter for screening mammogram for malignant neoplasm of breast ICD-10: Z12.31 ICD-9: V76.12 05/06/2015 Dysuria ICD-9: 788.1 09/25/2014 ACUTE SINUSITIS ICD-9: 461.9 09/11/2014 Reason For Visit Reason For Visit Effective Dates Notes hypothyroid 03/16/2016 hypothyroid 11/18/2015 well woman exam (40-65 years) 05/06/2015 sinus congestion 09/25/2014 sinus congestion 09/11/2014 sinus congestion 08/27/2014 Results Observation Observation Code Item Item Code Result Date Lipid Ord30 CHOL 235 mg/dL 03/17/2016 Lipid Ord30 HDL 50.0 mg/dl 03/17/2016 Lipid Ord30 TRIG 191 mg/dL 03/17/2016 Lipid Ord30 LDL 147 mg/dL 03/17/2016 Lipid Ord30 C/HDL 4.7 Ratio 03/17/2016 Comp Metabolic Jup781 NA 137 mEq/L 03/17/2016 Comp Metabolic Lru749 K 4.2 mEq/L 03/17/2016 Comp Metabolic Zve767 CL 101 mEq/L 03/17/2016 Comp Metabolic Jge148 CO2 30.0 mEq/L 03/17/2016 Comp Metabolic Tok464 ANION GAP 10 03/17/2016 Comp Metabolic Pai545 GLUCOSE 93 mg/dL 03/17/2016 Comp Metabolic Ebj735 Creat 0.6 mg/dL 03/17/2016 Comp Metabolic Ypw376 eGFR 111 ml/min/1.73m2 03/17/2016 Comp Metabolic Hvk691 BUN 13 mg/dL 03/17/2016 Comp Metabolic Mqx871 B/C Ratio 21.7 Ratio 03/17/2016 Comp Metabolic Rgw354 CALCIUM 9.4 mg/dL 03/17/2016 Comp Metabolic Mwo918 ALK PHOS 68 U/L 03/17/2016 Comp Metabolic Ije343 AST(SGOT) 20 U/L 03/17/2016 Comp Metabolic Ubt428 ALT(SGPT) 21 U/L 03/17/2016 Comp Metabolic Gko738 BILI T 0.4 mg/dL 03/17/2016 Comp Metabolic Gtd956 ALBUMIN 4.4 g/dL 03/17/2016 Comp Metabolic Sgp666 TPRO 6.7 g/dL 03/17/2016 Comp Metabolic Bot564 GLOB 2.3 g/dL 03/17/2016 Comp Metabolic Vah260 A/G Ratio 2.0 Ratio 03/17/2016 Comp Metabolic Hik556 Osmo 274 mOsmo 03/17/2016 %Hba1C Dbo769 % HbA1c 55406-9 5.8 % 03/17/2016 %Hba1C Yfd891 Gluc Ave 120 mg/dL 03/17/2016 Tsh Ord6 hTSH II 4.13 uIU/mL 03/17/2016 Cbc With Differential Ord2 WBC 5.64 K/ul 03/17/2016 Cbc With Differential Ord2 RBC 4.29 M/ul 03/17/2016 Cbc With Differential Ord2 HGB 12.4 g/dl 03/17/2016 Cbc With Differential Ord2 HCT 37.9 % 03/17/2016 Cbc With Differential Ord2 Neut% 59.8 % 03/17/2016 Cbc With Differential Ord2 MCV 88.3 fl 03/17/2016 Cbc With Differential Ord2 Lymph% 25.7 % 03/17/2016 Cbc With Differential Ord2 MCH 28.9 pg 03/17/2016 Cbc With Differential Ord2 Sanders% 10.3 % 03/17/2016 Cbc With Differential Ord2 MCHC 32.7 pg 03/17/2016 Cbc With Differential Ord2 Eos% 3.7 % 03/17/2016 Cbc With Differential Ord2 Baso% 0.5 % 03/17/2016 Cbc With Differential Ord2 PLT 342 K/ul 03/17/2016 Cbc With Differential Ord2 RDW 13.8 % 03/17/2016 Cbc With Differential Ord2 Neut ABS# 3.37 K/ul 03/17/2016 Cbc With Differential Ord2 Lymph ABS# 1.45 K/ul 03/17/2016 Cbc With Differential Ord2 Sanders ABS# 0.6 K/ul 03/17/2016 Cbc With Differential Ord2 Eos ABS# 0.2 K/ul 03/17/2016 Cbc With Differential Ord2 Baso ABS# 0.0 K/ul 03/17/2016 Free T4 Wnk432 FREE T4 0.81 ng/dL 03/17/2016 %Hba1C Uqc503 % HbA1c 16879-1 6.3 % 11/19/2015 %Hba1C Dlv405 Gluc Ave 134 mg/dL 11/19/2015 %Hba1C Fha680 % HbA1c 19106-3 5.9 % 05/06/2015 %Hba1C Lav154 Gluc Ave 123 mg/dL 05/06/2015 Review of Systems System Result Effective Dates Constitutional No recent illness 2016 Constitutional No chills 03/16/2016 Constitutional No fatigue 03/16/2016 Constitutional No fever 03/16/2016 Constitutional No insomnia 03/16/2016 Constitutional No malaise 03/16/2016 Eyes No blindness 03/16/2016 Eyes No eye discharge 03/16/2016 Eyes No eye erythema 03/16/2016 Eyes No vision change 03/16/2016 Ears/Nose/Throat/Neck No dental pain 12/2016 Ears/Nose/Throat/Neck No dizziness 2016 Ears/Nose/Throat/Neck No dysphagia 2016 Ears/Nose/Throat/Neck No headache 2016 Ears/Nose/Throat/Neck No hearing loss 12/2016 Ears/Nose/Throat/Neck No nasal allergies 03/16/2016 Ears/Nose/Throat/Neck No nasal discharge 03/16/2016 Ears/Nose/Throat/Neck No sore throat 12/2016 Ears/Nose/Throat/Neck No postnasal drip 03/16/2016 Ears/Nose/Throat/Neck No sinus congestion 03/16/2016 Cardiovascular No chest pain/pressure 12/2016 Cardiovascular No dyspnea 03/16/2016 Cardiovascular No edema 03/16/2016 Cardiovascular No exercise intolerance Cardiovascular No fatigue 03/16/2016 Cardiovascular No near-syncope/dizziness 03/16/2016 Cardiovascular No syncope 03/16/2016 Respiratory No chest congestion 2016 Respiratory No chest tightness 2016 Respiratory No cough 03/16/2016 Respiratory No dyspnea on exertion 2016 Respiratory No dyspnea 03/16/2016 Respiratory No pedal edema 03/16/2016 Gastrointestinal No abdominal pain 2016 Gastrointestinal No constipation 2016 Gastrointestinal No diarrhea 03/16/2016 Gastrointestinal No gastroesophageal reflux 03/16/2016 Gastrointestinal nausea 03/16/2016 Gastrointestinal No vomiting 03/16/2016 Genitourinary/Nephrology No breast complaint 03/16/2016 Genitourinary/Nephrology No dysuria 03/16 Genitourinary/Nephrology No genital lesion 03/16/2016 Genitourinary/Nephrology No hematuria 12/2016 Genitourinary/Nephrology No menopausal symptoms 03/16/2016 Genitourinary/Nephrology No menstrual irregularity 03/16/2016 Genitourinary/Nephrology No nocturia 12/2016 Genitourinary/Nephrology No Pap smear abnormality 03/16/2016 Genitourinary/Nephrology No pelvic pain 03/16/2016 Genitourinary/Nephrology No urinary incontinence 03/16/2016 Genitourinary/Nephrology No vaginal discharge 03/16/2016 Musculoskeletal No stiffness 03/16/2016 Musculoskeletal No swelling 03/16/2016 Musculoskeletal No muscle weakness 2016 Musculoskeletal No myalgias 03/16/2016 Dermatologic No rash 03/16/2016 Dermatologic No sores 03/16/2016 Dermatologic No scar 03/16/2016 Neurologic No dizziness 03/16/2016 Neurologic No headache 03/16/2016 Neurologic No neck pain 03/16/2016 Neurologic No syncope 03/16/2016 Psychiatric No anxiety 03/16/2016 Psychiatric No depression 03/16/2016 Constitutional No recent illness 2015 Constitutional No chills 11/18/2015 Constitutional No fever 11/18/2015 Eyes No eye discharge 11/18/2015 Eyes No eye erythema 11/18/2015 Ears/Nose/Throat/Neck No headache 2015 Ears/Nose/Throat/Neck No nasal discharge 11/18/2015 Ears/Nose/Throat/Neck No sore throat Cardiovascular No chest pain/pressure Cardiovascular No dyspnea 11/18/2015 Cardiovascular No fatigue 11/18/2015 Cardiovascular No syncope 11/18/2015 Respiratory No chest congestion 2015 Respiratory No chest tightness 2015 Respiratory No cough 11/18/2015 Respiratory No dyspnea on exertion 2015 Respiratory No dyspnea 11/18/2015 Gastrointestinal No abdominal pain 2015 Gastrointestinal No constipation 2015 Gastrointestinal No diarrhea 11/18/2015 Genitourinary/Nephrology No breast complaint 11/18/2015 Genitourinary/Nephrology No dysuria 11/17 Genitourinary/Nephrology No genital lesion 11/18/2015 Genitourinary/Nephrology No hematuria Genitourinary/Nephrology No menopausal symptoms 11/18/2015 Genitourinary/Nephrology No menstrual irregularity 11/18/2015 Genitourinary/Nephrology No Pap smear abnormality 11/18/2015 Genitourinary/Nephrology No pelvic pain 11/18/2015 Genitourinary/Nephrology No urinary incontinence 11/18/2015 Genitourinary/Nephrology No vaginal discharge 11/18/2015 Dermatologic No rash 11/18/2015 Psychiatric No anxiety 11/18/2015 Psychiatric No depression 11/18/2015 Constitutional No fatigue 11/18/2015 Constitutional No insomnia 11/18/2015 Constitutional No malaise 11/18/2015 Eyes No blindness 11/18/2015 Eyes No vision change 11/18/2015 Ears/Nose/Throat/Neck No dental pain Ears/Nose/Throat/Neck No dizziness 2015 Ears/Nose/Throat/Neck No dysphagia 2015 Ears/Nose/Throat/Neck No hearing loss Ears/Nose/Throat/Neck No nasal allergies 11/18/2015 Ears/Nose/Throat/Neck No postnasal drip 11/18/2015 Ears/Nose/Throat/Neck No sinus congestion 11/18/2015 Cardiovascular No edema 11/18/2015 Cardiovascular No exercise intolerance Cardiovascular No near-syncope/dizziness 11/18/2015 Respiratory No pedal edema 11/18/2015 Gastrointestinal No gastroesophageal reflux 11/18/2015 Gastrointestinal No nausea 11/18/2015 Gastrointestinal No vomiting 11/18/2015 Genitourinary/Nephrology No nocturia Musculoskeletal No stiffness 11/18/2015 Musculoskeletal No swelling 11/18/2015 Musculoskeletal No muscle weakness 2015 Musculoskeletal No myalgias 11/18/2015 Dermatologic No sores 11/18/2015 Dermatologic No scar 11/18/2015 Neurologic No dizziness 11/18/2015 Neurologic No headache 11/18/2015 Neurologic No neck pain 11/18/2015 Neurologic No syncope 11/18/2015 Constitutional No chills 05/06/2015 Constitutional No fever 05/06/2015 Constitutional No recent illness 2015 Eyes No eye discharge 05/06/2015 Eyes No eye erythema 05/06/2015 Ears/Nose/Throat/Neck No headache 2015 Ears/Nose/Throat/Neck No nasal discharge 05/06/2015 Ears/Nose/Throat/Neck No sore throat 03/2015 Cardiovascular No chest pain/pressure 03/2015 Cardiovascular No dyspnea 05/06/2015 Cardiovascular No fatigue 05/06/2015 Cardiovascular No syncope 05/06/2015 Respiratory No chest congestion 2015 Respiratory No chest tightness 2015 Respiratory No cough 05/06/2015 Respiratory No dyspnea 05/06/2015 Respiratory No dyspnea on exertion 2015 Gastrointestinal No abdominal pain 2015 Gastrointestinal No constipation 2015 Gastrointestinal No diarrhea 05/06/2015 Genitourinary/Nephrology No breast complaint 05/06/2015 Genitourinary/Nephrology No dysuria 05/05 Genitourinary/Nephrology No genital lesion 05/06/2015 Genitourinary/Nephrology No hematuria 03/2015 Genitourinary/Nephrology No menopausal symptoms 05/06/2015 Genitourinary/Nephrology No menstrual irregularity 05/06/2015 Genitourinary/Nephrology No Pap smear abnormality 05/06/2015 Genitourinary/Nephrology No pelvic pain 05/06/2015 Genitourinary/Nephrology No urinary incontinence 05/06/2015 Genitourinary/Nephrology No vaginal discharge 05/06/2015 Dermatologic No rash 05/06/2015 Psychiatric No anxiety 05/06/2015 Psychiatric No depression 05/06/2015 Constitutional recent illness 09/25/2014 Constitutional No night sweats 2014 Constitutional No chills 09/25/2014 Constitutional No diaphoresis 09/25/2014 Constitutional No fatigue 09/25/2014 Constitutional No fever 09/25/2014 Constitutional No insomnia 09/25/2014 Ears/Nose/Throat/Neck dental pain 2014 Ears/Nose/Throat/Neck dizziness 2014 Ears/Nose/Throat/Neck facial pain 2014 Ears/Nose/Throat/Neck facial swelling Ears/Nose/Throat/Neck headache 2014 Ears/Nose/Throat/Neck No hearing loss Ears/Nose/Throat/Neck No hoarseness 09/25 Ears/Nose/Throat/Neck nasal allergies Ears/Nose/Throat/Neck No neck swelling Ears/Nose/Throat/Neck otalgia 09/25/2014 Ears/Nose/Throat/Neck postnasal drip Ears/Nose/Throat/Neck sinus congestion Cardiovascular No chest pain/pressure Cardiovascular No dyspnea 09/25/2014 Cardiovascular No edema 09/25/2014 Respiratory No chest tightness 2014 Respiratory No cigarette smoking 2014 Respiratory No cough 09/25/2014 Respiratory No dyspnea 09/25/2014 Gastrointestinal No abdominal pain 2014 Gastrointestinal No constipation 2014 Gastrointestinal No diarrhea 09/25/2014 Gastrointestinal No nausea 09/25/2014 Gastrointestinal No vomiting 09/25/2014 Genitourinary/Nephrology No dysuria 09/25 Genitourinary/Nephrology No hematuria Dermatologic No rash 09/25/2014 Dermatologic No sores 09/25/2014 Constitutional recent illness 09/11/2014 Constitutional No night sweats 2014 Constitutional No chills 09/11/2014 Constitutional No diaphoresis 09/11/2014 Constitutional No fatigue 09/11/2014 Constitutional No fever 09/11/2014 Constitutional No insomnia 09/11/2014 Cardiovascular No chest pain/pressure 10/2014 Cardiovascular No dyspnea 09/11/2014 Cardiovascular No edema 09/11/2014 Respiratory No chest tightness 2014 Respiratory No cigarette smoking 2014 Respiratory No cough 09/11/2014 Respiratory No dyspnea 09/11/2014 Gastrointestinal No abdominal pain 2014 Gastrointestinal No constipation 2014 Gastrointestinal No diarrhea 09/11/2014 Gastrointestinal No vomiting 09/11/2014 Gastrointestinal No nausea 09/11/2014 Genitourinary/Nephrology No dysuria 09/11 Genitourinary/Nephrology No hematuria 10/2014 Dermatologic No rash 09/11/2014 Dermatologic No sores 09/11/2014 Ears/Nose/Throat/Neck dizziness 2014 Ears/Nose/Throat/Neck dental pain 2014 Ears/Nose/Throat/Neck facial pain 2014 Ears/Nose/Throat/Neck facial swelling 10/2014 Ears/Nose/Throat/Neck headache 2014 Ears/Nose/Throat/Neck No hearing loss 10/2014 Ears/Nose/Throat/Neck No hoarseness 09/11 Ears/Nose/Throat/Neck nasal allergies 10/2014 Ears/Nose/Throat/Neck sinus congestion Ears/Nose/Throat/Neck otalgia 09/11/2014 Ears/Nose/Throat/Neck No neck swelling Ears/Nose/Throat/Neck postnasal drip 10/2014 Constitutional recent illness 08/27/2014 Constitutional No night sweats 2014 Constitutional No chills 08/27/2014 Constitutional No diaphoresis 08/27/2014 Constitutional No fatigue 08/27/2014 Constitutional No fever 08/27/2014 Constitutional No insomnia 08/27/2014 Ears/Nose/Throat/Neck dental pain 2014 Ears/Nose/Throat/Neck dizziness 2014 Ears/Nose/Throat/Neck facial pain 2014 Ears/Nose/Throat/Neck facial swelling Ears/Nose/Throat/Neck headache 2014 Ears/Nose/Throat/Neck No hearing loss Ears/Nose/Throat/Neck No hoarseness 08/27 Ears/Nose/Throat/Neck nasal allergies Ears/Nose/Throat/Neck No neck swelling Ears/Nose/Throat/Neck otalgia 08/27/2014 Ears/Nose/Throat/Neck postnasal drip Ears/Nose/Throat/Neck sinus congestion Cardiovascular No chest pain/pressure Cardiovascular No dyspnea 08/27/2014 Cardiovascular No edema 08/27/2014 Respiratory No chest tightness 2014 Respiratory No cigarette smoking 2014 Respiratory No cough 08/27/2014 Respiratory No dyspnea 08/27/2014 Gastrointestinal No abdominal pain 2014 Gastrointestinal No constipation 2014 Gastrointestinal No diarrhea 08/27/2014 Gastrointestinal No nausea 08/27/2014 Gastrointestinal No vomiting 08/27/2014 Genitourinary/Nephrology No dysuria 08/27 Genitourinary/Nephrology No hematuria Dermatologic No rash 08/27/2014 Dermatologic No sores 08/27/2014 Psychiatric No anxiety 08/27/2014 Psychiatric No depression 08/27/2014 Neurologic dizziness 08/27/2014 Neurologic headache 08/27/2014 Neurologic No neck pain 08/27/2014 Neurologic No syncope 08/27/2014 Physical Exam Exam Name System Name Item Name Status Result Effective Dates Notes Full Exam - General 1994 Constitutional general appearance Development: well developed 03/16/2016 None Full Exam - General 1994 Constitutional general appearance Development: appears stated age 0103/16/2016 None Full Exam - General 1994 Constitutional general appearance Hygiene/Attention to Grooming: good hygiene 03/16/2016 None Full Exam - General 1994 Eyes conjunctiva /eyelids Overall: conjunctiva clear 03/16/2016 None Full Exam - General 1994 Eyes conjunctiva /eyelids Overall: cornea clear 03/16/2016 None Full Exam - General 1994 Eyes conjunctiva /eyelids Overall: eyelids normal 03/16/2016 None Full Exam - General 1994 Eyes pupils and irises Overall: pupils equal, round, reactive to light and accomodation 03/16/2016 None Full Exam - General 1994 Ears/Nose/Throat otoscopic exam Overall: external auditory canals clear 03/16/2016 None Full Exam - General 1994 Ears/Nose/Throat otoscopic exam Overall: tympanic membranes clear 03/16/2016 None Full Exam - General 1994 Ears/Nose/Throat lips/teeth/gingiva Overall: benign lips 03/16/2016 None Full Exam - General 1994 Ears/Nose/Throat lips/teeth/gingiva Overall: normal dentition 03/16/2016 None Full Exam - General 1994 Ears/Nose/Throat oral cavity/pharynx/larynx Overall: oral mucosa clear 03/16/2016 None Full Exam - General 1994 Ears/Nose/Throat oral cavity/pharynx/larynx Overall: oropharyngeal mucosa clear 03/16/2016 None Full Exam - General 1994 Ears/Nose/Throat oral cavity/pharynx/larynx Overall: hypopharynx benign 03/16/2016 None Full Exam - General 1994 Ears/Nose/Throat oral cavity/pharynx/larynx Overall: no masses 03/16/2016 None Full Exam - General 1994 Respiratory auscultation Overall: breath sounds clear bilaterally 03/16/2016 None Full Exam - General 1994 Respiratory respiratory effort/rhythm Overall: no retractions 03/16/2016 None Full Exam - General 1994 Respiratory respiratory effort/rhythm Overall: normal rate 03/16/2016 None Full Exam - General 1994 Cardiovascular extremities Overall: no clubbing 03/16/2016 None Full Exam - General 1994 Cardiovascular auscultation of heart Overall: regular rate 03/16/2016 None Full Exam - General 1994 Cardiovascular auscultation of heart Overall: normal heart sounds 03/16/2016 None Full Exam - General 1994 Integument inspection of skin Consistency: thick 03/16/2016 ON SCALP Full Exam - General 1994 Integument inspection of skin Consistency: dry 03/16/2016 None Full Exam - General 1994 Neurologic deep tendon reflexes Overall: deep tendon reflexes intact 03/16/2016 None Full Exam - General 1994 Neurologic cranial nerves Overall: crainial nerves 2 - 12 grossly intact 03/16/2016 None Full Exam - General 1994 Psychiatric orientation/consciousness Overall: oriented to person, place and time 03/16/2016 None Full Exam - General 1994 Psychiatric mood and affect Overall: normal mood and affect 03/16/2016 None Full Exam - General 1994 Abdomen abdominal exam Overall: no tenderness 03/16/2016 None Full Exam - General 1994 Abdomen abdominal exam Overall: normal bowel sounds 03/16/2016 None Full Exam - General 1994 Lymphatic neck nodes Overall: anterior cervical chain benign 03/16/2016 None Full Exam - General 1994 Lymphatic neck nodes Overall: posterior cervical chain benign 03/16/2016 None Full Exam - General 1994 Constitutional general appearance Development: well developed 11/18/2015 None Full Exam - General 1994 Constitutional general appearance Development: appears stated age 0911/18/2015 None Full Exam - General 1994 Constitutional general appearance Hygiene/Attention to Grooming: good hygiene 11/18/2015 None Full Exam - General 1994 Eyes conjunctiva /eyelids Overall: conjunctiva clear 11/18/2015 None Full Exam - General 1994 Eyes conjunctiva /eyelids Overall: cornea clear 11/18/2015 None Full Exam - General 1994 Eyes conjunctiva /eyelids Overall: eyelids normal 11/18/2015 None Full Exam - General 1994 Eyes pupils and irises Overall: pupils equal, round, reactive to light and accomodation 11/18/2015 None Full Exam - General 1994 Ears/Nose/Throat otoscopic exam Overall: external auditory canals clear 11/18/2015 None Full Exam - General 1994 Ears/Nose/Throat otoscopic exam Overall: tympanic membranes clear 11/18/2015 None Full Exam - General 1994 Ears/Nose/Throat lips/teeth/gingiva Overall: benign lips 11/18/2015 None Full Exam - General 1994 Ears/Nose/Throat lips/teeth/gingiva Overall: normal dentition 11/18/2015 None Full Exam - General 1994 Ears/Nose/Throat oral cavity/pharynx/larynx Overall: oral mucosa clear 11/18/2015 None Full Exam - General 1994 Ears/Nose/Throat oral cavity/pharynx/larynx Overall: oropharyngeal mucosa clear 11/18/2015 None Full Exam - General 1994 Ears/Nose/Throat oral cavity/pharynx/larynx Overall: hypopharynx benign 11/18/2015 None Full Exam - General 1994 Ears/Nose/Throat oral cavity/pharynx/larynx Overall: no masses 11/18/2015 None Full Exam - General 1994 Respiratory auscultation Overall: breath sounds clear bilaterally 11/18/2015 None Full Exam - General 1994 Respiratory respiratory effort/rhythm Overall: no retractions 11/18/2015 None Full Exam - General 1994 Respiratory respiratory effort/rhythm Overall: normal rate 11/18/2015 None Full Exam - General 1994 Cardiovascular extremities Overall: no clubbing 11/18/2015 None Full Exam - General 1994 Cardiovascular auscultation of heart Overall: regular rate 11/18/2015 None Full Exam - General 1994 Cardiovascular auscultation of heart Overall: normal heart sounds 11/18/2015 None Full Exam - General 1994 Neurologic deep tendon reflexes Overall: deep tendon reflexes intact 11/18/2015 None Full Exam - General 1994 Neurologic cranial nerves Overall: crainial nerves 2 - 12 grossly intact 11/18/2015 None Full Exam - General 1994 Psychiatric orientation/consciousness Overall: oriented to person, place and time 11/18/2015 None Full Exam - General 1994 Psychiatric mood and affect Overall: normal mood and affect 11/18/2015 None Full Exam - General 1994 Integument inspection of skin Consistency: dry 11/18/2015 None Full Exam - General 1994 Integument inspection of skin Consistency: thick 11/18/2015 ON SCALP Full Exam - Genitourinary/Female Constitutional general appearance Overall: well nourished 05/06/2015 None Full Exam - Genitourinary/Female Constitutional general appearance Overall: well developed 05/06/2015 None Full Exam - Genitourinary/Female Constitutional general appearance Overall: in no acute distress 05/06/2015 None Full Exam - Genitourinary/Female Eyes conjunctiva/eyelids Overall: conjunctiva clear 05/06/2015 None Full Exam - Genitourinary/Female Eyes pupils and irises Overall: pupils equal, round, reactive to light and accomodation 05/06/2015 None Full Exam - Genitourinary/Female Ears/Nose/Throat otoscopic exam Overall: external auditory canals clear 05/06/2015 None Full Exam - Genitourinary/Female Ears/Nose/Throat otoscopic exam Overall: tympanic membranes clear 05/06/2015 None Full Exam - Genitourinary/Female Ears/Nose/Throat oral cavity/pharynx/larynx Overall: oral mucosa clear 05/06/2015 None Full Exam - Genitourinary/Female Neck thyroid Overall: normal size 05/06/2015 None Full Exam - Genitourinary/Female Neck thyroid Overall: normal consistency 05/06/2015 None Full Exam - Genitourinary/Female Neck inspection of neck Overall: normal size 05/06/2015 None Full Exam - Genitourinary/Female Respiratory auscultation Overall: breath sounds clear bilaterally 05/06/2015 None Full Exam - Genitourinary/Female Respiratory respiratory effort/rhythm Overall: no retractions 05/06/2015 None Full Exam - Genitourinary/Female Respiratory respiratory effort/rhythm Overall: normal rate 05/06/2015 None Full Exam - Genitourinary/Female Cardiovascular auscultation of heart Overall: regular rate 05/06/2015 None Full Exam - Genitourinary/Female Cardiovascular auscultation of heart Overall: normal heart sounds 05/06/2015 None Full Exam - Genitourinary/Female Cardiovascular auscultation of heart Overall: no murmurs 05/06/2015 None Full Exam - Genitourinary/Female Chest/Breast breast inspection and palpation Overall: normal chest shape 05/06/2015 None Full Exam - Genitourinary/Female Abdomen abdominal exam Overall: non tender, non distended 05/06/2015 None Full Exam - Genitourinary/Female Abdomen abdominal exam Overall: normal bowel sounds 05/06/2015 None Full Exam - Genitourinary/Female Abdomen abdominal exam Overall: no mass lesions 05/06/2015 None Full Exam - Genitourinary/Female Genitourinary breast inspection & palpation Overall: breasts symmetric and without lesions 05/06/2015 None Full Exam - Genitourinary/Female Genitourinary breast inspection & palpation Overall: breasts non-tender, no mass lesions 05/06/2015 None Full Exam - Genitourinary/Female Genitourinary breast inspection & palpation Overall: no nipple discharge 05/06/2015 None Full Exam - Genitourinary/Female Genitourinary external genitalia Overall: normal hair distribution 05/06/2015 None Full Exam - Genitourinary/Female Genitourinary external genitalia Overall: no discharge 05/06/2015 None Full Exam - Genitourinary/Female Genitourinary external genitalia Overall: no lesions 05/06/2015 None Full Exam - Genitourinary/Female Genitourinary bladder Overall: no tenderness 05/06/2015 None Full Exam - Genitourinary/Female Genitourinary bladder Overall: no mass lesions 05/06/2015 None Full Exam - Genitourinary/Female Genitourinary vagina Overall: no discharge 05/06/2015 None Full Exam - Genitourinary/Female Genitourinary vagina Overall: no lesions 05/06/2015 None Full Exam - Genitourinary/Female Genitourinary vagina Overall: normal tone 05/06/2015 None Full Exam - Genitourinary/Female Genitourinary vagina Overall: normal pelvic support 05/06/2015 None Full Exam - Genitourinary/Female Genitourinary vagina Introitus: normal appearance 05/06/2015 None Full Exam - Genitourinary/Female Genitourinary cervix Inspection: normal os 05/06/2015 None Full Exam - Genitourinary/Female Lymphatic inspection and palpation of nodes Overall: anterior cervical chain benign 05/06/2015 None Full Exam - Genitourinary/Female Lymphatic inspection and palpation of nodes Overall: posterior cervical chain benign 05/06/2015 None Full Exam - Genitourinary/Female Musculoskeletal head and neck Overall: head atraumatic 05/06/2015 None Full Exam - Genitourinary/Female Integument inspection and palpation of skin Overall: no rash, lesions 05/06/2015 None Full Exam - Genitourinary/Female Integument inspection and palpation of skin Overall: no induration, no tenderness 05/06/2015 None Full Exam - Genitourinary/Female Neurologic mood and affect Overall: normal mood 05/06/2015 None Full Exam - Genitourinary/Female Neurologic mood and affect Overall: normal affect 05/06/2015 None Full Exam - Genitourinary/Female Psychiatric orientation/consciousness Overall: oriented to person, place and time 05/06/2015 None Full Exam - Genitourinary/Female Genitourinary uterus Overall: uterus surgically absent 05/06/2015 None Full Exam - General 1994 Constitutional general appearance Development: appears stated age 0709/25/2014 None Full Exam - General 1994 Constitutional general appearance Development: well developed 09/25/2014 None Full Exam - General 1994 Constitutional general appearance Hygiene/Attention to Grooming: good hygiene 09/25/2014 None Full Exam - General 1994 Eyes conjunctiva /eyelids Overall: conjunctiva clear 09/25/2014 None Full Exam - General 1994 Eyes conjunctiva /eyelids Overall: cornea clear 09/25/2014 None Full Exam - General 1994 Eyes conjunctiva /eyelids Overall: eyelids normal 09/25/2014 None Full Exam - General 1994 Eyes pupils and irises Overall: pupils equal, round, reactive to light and accomodation 09/25/2014 None Full Exam - General 1994 Ears/Nose/Throat otoscopic exam Overall: external auditory canals clear 09/25/2014 None Full Exam - General 1994 Ears/Nose/Throat otoscopic exam Overall: tympanic membranes clear 09/25/2014 None Full Exam - General 1994 Ears/Nose/Throat lips/teeth/gingiva Overall: benign lips 09/25/2014 None Full Exam - General 1994 Ears/Nose/Throat lips/teeth/gingiva Overall: normal dentition 09/25/2014 None Full Exam - General 1994 Ears/Nose/Throat oral cavity/pharynx/larynx Overall: no masses 09/25/2014 None Full Exam - General 1994 Ears/Nose/Throat oral cavity/pharynx/larynx Overall: oral mucosa clear 09/25/2014 None Full Exam - General 1994 Ears/Nose/Throat oral cavity/pharynx/larynx Overall: oropharyngeal mucosa clear 09/25/2014 None Full Exam - General 1994 Respiratory auscultation Overall: breath sounds clear bilaterally 09/25/2014 None Full Exam - General 1994 Respiratory respiratory effort/rhythm Overall: no retractions 09/25/2014 None Full Exam - General 1994 Respiratory respiratory effort/rhythm Overall: normal rate 09/25/2014 None Full Exam - General 1994 Cardiovascular extremities Overall: no clubbing 09/25/2014 None Full Exam - General 1994 Cardiovascular auscultation of heart Overall: normal heart sounds 09/25/2014 None Full Exam - General 1994 Cardiovascular auscultation of heart Overall: regular rate 09/25/2014 None Full Exam - General 1994 Abdomen abdominal exam Overall: no tenderness 09/25/2014 None Full Exam - General 1994 Abdomen abdominal exam Overall: normal bowel sounds 09/25/2014 None Full Exam - General 1994 Integument inspection of skin Overall: few scattered moles, no gross abnormalities 09/25/2014 None Full Exam - General 1994 Neurologic deep tendon reflexes Overall: deep tendon reflexes intact 09/25/2014 None Full Exam - General 1994 Neurologic cranial nerves Overall: crainial nerves 2 - 12 grossly intact 09/25/2014 None Full Exam - General 1994 Psychiatric orientation/consciousness Overall: oriented to person, place and time 09/25/2014 None Full Exam - General 1994 Psychiatric mood and affect Overall: normal mood and affect 09/25/2014 None Full Exam - ENT Neurologic mood and affect Overall: normal mood 09/11/2014 None Full Exam - ENT Neurologic mood and affect Overall: normal affect 09/11/2014 None Full Exam - ENT Neurologic orientation Overall: oriented to person, place and time 09/11/2014 None Full Exam - ENT Neurologic cranial nerves /coordination Overall: cranial nerves 2- 12 grossly intact 09/11/2014 None Full Exam - ENT Neurologic cranial nerves /coordination Overall: normal coordination , gait 09/11/2014 None Full Exam - ENT Integument inspection of skin Overall: no rash, lesions 09/11/2014 None Full Exam - ENT Musculoskeletal head and neck Overall: head atraumatic 09/11/2014 None Full Exam - ENT Musculoskeletal head and neck Overall: TMJ benign 09/11/2014 None Full Exam - ENT Musculoskeletal head and neck Overall: cervical spine benign 09/11/2014 None Full Exam - ENT Musculoskeletal digits and nails Overall: no clubbing 09/11/2014 None Full Exam - ENT Musculoskeletal digits and nails Overall: digits benign 09/11/2014 None Full Exam - ENT Musculoskeletal right upper extremity Overall: right shoulder benign 09/11/2014 None Full Exam - ENT Musculoskeletal right upper extremity Overall: right elbow benign 09/11/2014 None Full Exam - ENT Musculoskeletal right upper extremity Overall: right wrist benign 09/11/2014 None Full Exam - ENT Musculoskeletal left upper extremity Overall: normal left shoulder 09/11/2014 None Full Exam - ENT Musculoskeletal left upper extremity Overall: normal left elbow 09/11/2014 None Full Exam - ENT Musculoskeletal left upper extremity Overall: normal left wrist 09/11/2014 None Full Exam - ENT Musculoskeletal right lower extremity Overall: right knee benign 09/11/2014 None Full Exam - ENT Musculoskeletal right lower extremity Overall: right ankle benign 09/11/2014 None Full Exam - ENT Musculoskeletal right lower extremity Overall: right foot benign 09/11/2014 None Full Exam - ENT Musculoskeletal left lower extremity Overall: left knee benign 09/11/2014 None Full Exam - ENT Musculoskeletal left lower extremity Overall: left ankle benign 09/11/2014 None Full Exam - ENT Musculoskeletal left lower extremity Overall: left foot benign 09/11/2014 None Full Exam - ENT Musculoskeletal spine, ribs and pelvis Overall: good posture 09/11/2014 None Full Exam - ENT Musculoskeletal gait and station Overall: normal gait 09/11/2014 None Full Exam - ENT Musculoskeletal gait and station Overall: normal station 09/11/2014 None Full Exam - ENT Lymphatic palpation of lymph nodes Overall: shotty lymphadenopathy 09/11/2014 None Full Exam - ENT Abdomen abdominal exam Overall: no tenderness 09/11/2014 None Full Exam - ENT Abdomen abdominal exam Overall: normal bowel sounds 09/11/2014 None Full Exam - ENT Cardiovascular auscultation of heart Overall: regular rate 09/11/2014 None Full Exam - ENT Cardiovascular auscultation of heart Overall: normal heart sounds 09/11/2014 None Full Exam - ENT Cardiovascular examination of vasculature Overall: no clubbing 09/11/2014 None Full Exam - ENT Cardiovascular examination of vasculature Overall: normal pulses 09/11/2014 None Full Exam - ENT Respiratory auscultation Overall: breath sounds clear bilaterally 09/11/2014 None Full Exam - ENT Respiratory inspection Overall: no retractions 09/11/2014 None Full Exam - ENT Respiratory inspection Overall: normal rate 10/2014 None Full Exam - ENT Neck inspection of neck Overall: normal size None Full Exam - ENT Neck inspection of neck Overall: normal skin None Full Exam - ENT Neck inspection of neck Overall: normal appearance 09/11/2014 None Full Exam - ENT Neck inspection of neck Overall: no masses 10/2014 None Full Exam - ENT Neck inspection of neck Overall: absence of swelling 09/11/2014 None Full Exam - ENT Neck inspection of neck Overall: normal major salivary glands 09/11/2014 None Full Exam - ENT Neck inspection of neck Overall: normal tracheal position 09/11/2014 None Full Exam - ENT Neck inspection of neck Overall: normal jugular venous pressure 09/11/2014 None Full Exam - ENT Neck inspection of neck Overall: no carotid bruits 09/11/2014 None Full Exam - ENT Face and Head inspection of face/head Overall: no scars, lesions, masses 09/11/2014 None Full Exam - ENT Face and Head palpation Left maxillary sinus: tender 09/11/2014 None Full Exam - ENT Face and Head palpation Right maxillary sinus: tender 09/11/2014 None Full Exam - ENT Face and Head palpation Left frontal sinus: tender 09/11/2014 None Full Exam - ENT Face and Head palpation Right frontal sinus: tender 09/11/2014 None Full Exam - ENT Face and Head facial strength Overall: symmetric smile 09/11/2014 None Full Exam - ENT Ears/Nose/Throat otoscopic exam Overall: external auditory canals normal 09/11/2014 None Full Exam - ENT Ears/Nose/Throat otoscopic exam Left tympanic membrane: air -fluid level 09/11/2014 None Full Exam - ENT Ears/Nose/Throat otoscopic exam Right tympanic membrane: air-fluid level 09/11/2014 None Full Exam - ENT Ears/Nose/Throat hearing assessment Overall: hearing intact bilaterally 09/11/2014 None Full Exam - ENT Ears/Nose/Throat external ear and nose Overall: normal appearance 09/11/2014 None Full Exam - ENT Ears/Nose/Throat external ear and nose Overall: no masses 09/11/2014 None Full Exam - ENT Ears/Nose/Throat external ear and nose Overall: normal mastoids 09/11/2014 None Full Exam - ENT Ears/Nose/Throat nasal mucosa, septum, turbinates Left nasal cavity: erythema 09/11/2014 None Full Exam - ENT Ears/Nose/Throat nasal mucosa, septum, turbinates Right nasal cavity: erythema 09/11/2014 None Full Exam - ENT Ears/Nose/Throat nasal mucosa, septum, turbinates Drainage: clear 09/11/2014 None Full Exam - ENT Ears/Nose/Throat lips/ teeth/gingiva Overall: benign lips 09/11/2014 None Full Exam - ENT Ears/Nose/Throat lips/ teeth/gingiva Overall: normal dentition 09/11/2014 None Full Exam - ENT Ears/Nose/Throat lips/ teeth/gingiva Overall: benign gingiva 09/11/2014 None Full Exam - ENT Ears/Nose/Throat lips/ teeth/gingiva Overall: no masses 09/11/2014 None Full Exam - ENT Ears/Nose/Throat oropharynx Oral mucosa: a normal exam 09/11/2014 None Full Exam - ENT Ears/Nose/Throat oropharynx Oropharynx: a normal exam 09/11/2014 None Full Exam - ENT Ears/Nose/Throat oropharynx Overall: floor of mouth benign 09/11/2014 None Full Exam - ENT Ears/Nose/Throat oropharynx Overall: hard palate benign 09/11/2014 None Full Exam - ENT Ears/Nose/Throat oropharynx Overall: soft palate benign 09/11/2014 None Full Exam - ENT Ears/Nose/Throat oropharynx Overall: mobile tongue benign 09/11/2014 None Full Exam - ENT Ears/Nose/Throat oropharynx Overall: base of tongue benign 09/11/2014 None Full Exam - ENT Eyes ocular motility Left eye movement: a normal exam 09/11/2014 None Full Exam - ENT Eyes ocular motility Right eye movement: a normal exam 09/11/2014 None Full Exam - ENT Constitutional communication assessment Overall: normal mode of communication 09/11/2014 None Full Exam - ENT Constitutional communication assessment Overall: normal phonation 09/11/2014 None Full Exam - ENT Constitutional general appearance Overall: well nourished 09/11/2014 None Full Exam - ENT Constitutional general appearance Overall: well developed 09/11/2014 None Full Exam - ENT Constitutional general appearance Overall: in no acute distress 09/11/2014 None Full Exam - ENT Ears/Nose/Throat nasal mucosa, septum, turbinates Right nasal cavity: edema 09/11/2014 None Full Exam - ENT Ears/Nose/Throat nasal mucosa, septum, turbinates Left nasal cavity: edema 09/11/2014 None Full Exam - ENT Constitutional general appearance Overall: well nourished 08/27/2014 None Full Exam - ENT Constitutional general appearance Overall: well developed 08/27/2014 None Full Exam - ENT Constitutional general appearance Overall: in no acute distress 08/27/2014 None Full Exam - ENT Constitutional communication assessment Overall: normal mode of communication 08/27/2014 None Full Exam - ENT Constitutional communication assessment Overall: normal phonation 08/27/2014 None Full Exam - ENT Eyes ocular motility Left eye movement: a normal exam 08/27/2014 None Full Exam - ENT Eyes ocular motility Right eye movement: a normal exam 08/27/2014 None Full Exam - ENT Ears/Nose/Throat otoscopic exam Overall: external auditory canals normal 08/27/2014 None Full Exam - ENT Ears/Nose/Throat otoscopic exam Left tympanic membrane: air -fluid level 08/27/2014 None Full Exam - ENT Ears/Nose/Throat otoscopic exam Right tympanic membrane: air-fluid level 08/27/2014 None Full Exam - ENT Ears/Nose/Throat hearing assessment Overall: hearing intact bilaterally 08/27/2014 None Full Exam - ENT Ears/Nose/Throat external ear and nose Overall: normal appearance 08/27/2014 None Full Exam - ENT Ears/Nose/Throat external ear and nose Overall: no masses 08/27/2014 None Full Exam - ENT Ears/Nose/Throat external ear and nose Overall: normal mastoids 08/27/2014 None Full Exam - ENT Ears/Nose/Throat nasal mucosa, septum, turbinates Left nasal cavity: erythema 08/27/2014 None Full Exam - ENT Ears/Nose/Throat nasal mucosa, septum, turbinates Left nasal cavity: edema 08/27/2014 None Full Exam - ENT Ears/Nose/Throat nasal mucosa, septum, turbinates Right nasal cavity: erythema 08/27/2014 None Full Exam - ENT Ears/Nose/Throat nasal mucosa, septum, turbinates Right nasal cavity: edema 08/27/2014 None Full Exam - ENT Ears/Nose/Throat nasal mucosa, septum, turbinates Drainage: clear 08/27/2014 None Full Exam - ENT Ears/Nose/Throat lips/ teeth/gingiva Overall: benign lips 08/27/2014 None Full Exam - ENT Ears/Nose/Throat lips/ teeth/gingiva Overall: normal dentition 08/27/2014 None Full Exam - ENT Ears/Nose/Throat lips/ teeth/gingiva Overall: benign gingiva 08/27/2014 None Full Exam - ENT Ears/Nose/Throat lips/ teeth/gingiva Overall: no masses 08/27/2014 None Full Exam - ENT Ears/Nose/Throat oropharynx Overall: floor of mouth benign 08/27/2014 None Full Exam - ENT Ears/Nose/Throat oropharynx Overall: hard palate benign 08/27/2014 None Full Exam - ENT Ears/Nose/Throat oropharynx Overall: soft palate benign 08/27/2014 None Full Exam - ENT Ears/Nose/Throat oropharynx Overall: mobile tongue benign 08/27/2014 None Full Exam - ENT Ears/Nose/Throat oropharynx Overall: base of tongue benign 08/27/2014 None Full Exam - ENT Ears/Nose/Throat oropharynx Oral mucosa: a normal exam 08/27/2014 None Full Exam - ENT Ears/Nose/Throat oropharynx Oropharynx: a normal exam 08/27/2014 None Full Exam - ENT Face and Head facial strength Overall: symmetric smile 08/27/2014 None Full Exam - ENT Face and Head inspection of face/head Overall: no scars, lesions, masses 08/27/2014 None Full Exam - ENT Face and Head palpation Left maxillary sinus: tender 08/27/2014 None Full Exam - ENT Face and Head palpation Right maxillary sinus: tender 08/27/2014 None Full Exam - ENT Face and Head palpation Left frontal sinus: tender 08/27/2014 None Full Exam - ENT Face and Head palpation Right frontal sinus: tender 08/27/2014 None Full Exam - ENT Neck inspection of neck Overall: normal size None Full Exam - ENT Neck inspection of neck Overall: normal skin None Full Exam - ENT Neck inspection of neck Overall: normal appearance 08/27/2014 None Full Exam - ENT Neck inspection of neck Overall: no masses None Full Exam - ENT Neck inspection of neck Overall: absence of swelling 08/27/2014 None Full Exam - ENT Neck inspection of neck Overall: normal major salivary glands 08/27/2014 None Full Exam - ENT Neck inspection of neck Overall: normal tracheal position 08/27/2014 None Full Exam - ENT Neck inspection of neck Overall: normal jugular venous pressure 08/27/2014 None Full Exam - ENT Neck inspection of neck Overall: no carotid bruits 08/27/2014 None Full Exam - ENT Respiratory inspection Overall: no retractions 08/27/2014 None Full Exam - ENT Respiratory inspection Overall: normal rate None Full Exam - ENT Respiratory auscultation Overall: breath sounds clear bilaterally 08/27/2014 None Full Exam - ENT Cardiovascular auscultation of heart Overall: regular rate 08/27/2014 None Full Exam - ENT Cardiovascular auscultation of heart Overall: normal heart sounds 08/27/2014 None Full Exam - ENT Cardiovascular examination of vasculature Overall: no clubbing 08/27/2014 None Full Exam - ENT Cardiovascular examination of vasculature Overall: normal pulses 08/27/2014 None Full Exam - ENT Abdomen abdominal exam Overall: no tenderness 08/27/2014 None Full Exam - ENT Abdomen abdominal exam Overall: normal bowel sounds 08/27/2014 None Full Exam - ENT Lymphatic palpation of lymph nodes Overall: shotty lymphadenopathy 08/27/2014 None Full Exam - ENT Musculoskeletal head and neck Overall: head atraumatic 08/27/2014 None Full Exam - ENT Musculoskeletal head and neck Overall: TMJ benign 08/27/2014 None Full Exam - ENT Musculoskeletal head and neck Overall: cervical spine benign 08/27/2014 None Full Exam - ENT Musculoskeletal digits and nails Overall: no clubbing 08/27/2014 None Full Exam - ENT Musculoskeletal digits and nails Overall: digits benign 08/27/2014 None Full Exam - ENT Musculoskeletal right upper extremity Overall: right shoulder benign 08/27/2014 None Full Exam - ENT Musculoskeletal right upper extremity Overall: right elbow benign 08/27/2014 None Full Exam - ENT Musculoskeletal right upper extremity Overall: right wrist benign 08/27/2014 None Full Exam - ENT Musculoskeletal left upper extremity Overall: normal left shoulder 08/27/2014 None Full Exam - ENT Musculoskeletal left upper extremity Overall: normal left elbow 08/27/2014 None Full Exam - ENT Musculoskeletal left upper extremity Overall: normal left wrist 08/27/2014 None Full Exam - ENT Musculoskeletal right lower extremity Overall: right knee benign 08/27/2014 None Full Exam - ENT Musculoskeletal right lower extremity Overall: right ankle benign 08/27/2014 None Full Exam - ENT Musculoskeletal right lower extremity Overall: right foot benign 08/27/2014 None Full Exam - ENT Musculoskeletal left lower extremity Overall: left knee benign 08/27/2014 None Full Exam - ENT Musculoskeletal left lower extremity Overall: left ankle benign 08/27/2014 None Full Exam - ENT Musculoskeletal left lower extremity Overall: left foot benign 08/27/2014 None Full Exam - ENT Musculoskeletal spine, ribs and pelvis Overall: good posture 08/27/2014 None Full Exam - ENT Musculoskeletal gait and station Overall: normal gait 08/27/2014 None Full Exam - ENT Musculoskeletal gait and station Overall: normal station 08/27/2014 None Full Exam - ENT Integument inspection of skin Overall: no rash, lesions 08/27/2014 None Full Exam - ENT Neurologic mood and affect Overall: normal mood 08/27/2014 None Full Exam - ENT Neurologic mood and affect Overall: normal affect 08/27/2014 None Full Exam - ENT Neurologic orientation Overall: oriented to person, place and time 08/27/2014 None Full Exam - ENT Neurologic cranial nerves /coordination Overall: cranial nerves 2- 12 grossly intact 08/27/2014 None Full Exam - ENT Neurologic cranial nerves /coordination Overall: normal coordination , gait 08/27/2014 None Procedures Procedure Codes Date URINALYSIS NONAUTO W/O SCOPE CPT-4: 23682 09/25/2014 Vital Signs Date Vital 03/16/2016 Blood Pressure 1: 128/76 Code : 8480-6 BMI: 27.5 Code : 41791-2 Heart Rate 1 : 72 bpm Height: 5'6" SpO2: 98% Weight: 173 lbs 11/18/2015 Blood Pressure 1: 120/68 Code : 8480-6 BMI: 27.2 Code : 40224-0 Heart Rate 1 : 71 bpm Height: 5'6" SpO2: 98% Weight: 171 lbs 05/06/2015 Blood Pressure 1: 120/72 Code : 8480-6 BMI: 26.2 Code : 51189-8 Heart Rate 1 : 73 bpm Height: 5'6" SpO2: 98% Weight: 165 lbs 09/25/2014 Blood Pressure 1: 120/76 Code : 8480-6 BMI: 27.0 Code : 47237-1 Heart Rate 1 : 79 bpm Height: 5'6" SpO2: 98% Weight: 170 lbs 09/11/2014 Blood Pressure 1: 132/68 Code : 8480-6 BMI: 26.9 Code : 58480-5 Heart Rate 1 : 71 bpm Height: 5'6" SpO2: 97% Weight: 169 lbs 08/27/2014 Blood Pressure 1: 120/64 Code : 8480-6 BMI: 26.6 Code : 02958-4 Heart Rate 1 : 75 bpm Height: 5'7" SpO2: 98% Weight: 170 lbs Functional Status No Functional Status data History of Present Illness Symptom Name Status Result Effective Date Notes hypothyroid Onset and Resolution ongoing 03/16/2016 None hypothyroid Alleviating Factors medication 03/16/2016 None medication follow up Location oral intake 03/16/2016 None nausea Quality intermittent 03/16/2016 None nausea Exacerbating Factors medication 03/16/2016 None nausea Timing of Episodes in the evening 03/16/2016 None mole check Location-Trunk on the right lower abdomen 03/16/2016 (under the abdominal fold) hypothyroid Onset and Resolution ongoing 11/18/2015 None hypothyroid Alleviating Factors medication 11/18/2015 None medication follow up Location oral intake 11/18/2015 None medication follow up Additional Comments medication use 11/18/2015 None mole check Location-Major on the abdomen 11/18/2015 None mole check Location-Trunk on the right lower abdomen 11/18/2015 None well woman exam (40-65 years) Pap Smear last normal performed on -__ 05/06/2015 None well woman exam (40-65 years) Pap Smear normal results 05/06/2015 None well woman exam (40-65 years) Menstrual History menopause at age 50 05/06/2015 None well woman exam (40-65 years) Control none 05/06/2015 None well woman exam (40-65 years) Nutrition and Exercise normal weight 05/06/2015 None well woman exam (40-65 years) Nutrition and Exercise balanced nutrition 05/06/2015 None well woman exam (40-65 years) Nutrition and Exercise regular diet 05/06/2015 None well woman exam (40-65 years) Obstetrical History 0 total pregnancies 05/06/2015 None well woman exam (40-65 years) Health Guidance self-breast exam 05/06/2015 None well woman exam (40-65 years) Sexual Activity is not sexually active 05/06/2015 None sinus congestion Onset of Symptom 2 months ago 09/25/2014 None sinus congestion Severity moderate 09/25/2014 None sinus congestion Frequency of Episodes unchanged 09/25/2014 None sinus congestion Significant Medications antibiotics 09/25/2014 None sinus congestion Significant Medications decongestants 09/25/2014 None sinus congestion Significant Medications nasal spray 09/25/2014 None sinus congestion Pertinent Findings cough 09/25/2014 None sinus congestion Pertinent Findings decreased energy level 09/25/2014 None sinus congestion Pertinent Findings facial numbness 09/25/2014 None sinus congestion Pertinent Findings facial pain 09/25/2014 None sinus congestion Pertinent Findings hoarseness 09/25/2014 None sinus congestion Pertinent Findings nasal obstruction 09/25/2014 None sinus congestion Location on both sides 09/25/2014 None sinus congestion Quality pain 09/25/2014 None sinus congestion Quality pressure 09/25/2014 None sore throat Location on both sides 09/25/2014 None sore throat Quality scratchy 09/25/2014 None vaginal discharge Quality thin 09/25/2014 None vaginal discharge Quality intermittent 09/25/2014 None vaginal discharge Quality bloody 09/25/2014 None vaginal discharge Severity mild 09/25/2014 None vaginal discharge Frequency of Episodes monthly 09/25/2014 None sinus congestion Onset of Symptom 2 months ago 09/11/2014 None sinus congestion Pertinent Findings cough 09/11/2014 None sinus congestion Pertinent Findings decreased energy level 09/11/2014 None sinus congestion Pertinent Findings facial numbness 09/11/2014 None sinus congestion Pertinent Findings facial pain 09/11/2014 None sinus congestion Pertinent Findings hoarseness 09/11/2014 None sinus congestion Pertinent Findings nasal obstruction 09/11/2014 None sinus congestion Location on both sides 09/11/2014 None sinus congestion Quality pain 09/11/2014 None sinus congestion Quality pressure 09/11/2014 None sore throat Location on both sides 09/11/2014 None sore throat Quality scratchy 09/11/2014 None sinus congestion Severity moderate 09/11/2014 None sinus congestion Frequency of Episodes unchanged 09/11/2014 None sinus congestion Significant Medications antibiotics 09/11/2014 None sinus congestion Significant Medications decongestants 09/11/2014 None sinus congestion Significant Medications nasal spray 09/11/2014 None sinus congestion Quality constant 08/27/2014 None sinus congestion Onset of Symptom 1 months ago 08/27/2014 None sinus congestion Frequency of Episodes daily 08/27/2014 None sinus congestion Pertinent Findings Denies cough 08/27/2014 1st time did but present infection doesnt sinus congestion Pertinent Findings Denies fever 08/27/2014 None Advance Directives No Advance Directive data Encounters Encounter Performer Location Codes Date () [id number] EST. PATIENT, LEVEL IV Diagnosis: Atrophy of thyroid (acquired)[ICD10: E03.4] Diagnosis: Weakness[ICD10: R53.1] Luba Hudson MD, [facility] CPT-4: 27684 03/16/2016 ([id number]) 28753 EST. PATIENT, LEVEL IV Diagnosis: Other abnormal glucose[ICD10: R73.09] Diagnosis: Atrophy of thyroid (acquired)[ICD10: E03.4] Diagnosis: Psoriasis vulgaris[ICD10: L40.0] Diagnosis: Major depressive disorder, recurrent, mild[ICD10: F33.0] Luba Hudson MD, [facility] CPT-4: 07725 11/18/2015 ([id number]) PREV VISIT EST AGE 40-64 Diagnosis: Encounter for gynecological examination (general) (routine) without abnormal findings[ICD10: Z01.419] Diagnosis: Encounter for screening mammogram for malignant neoplasm of breast[ ICD10: Z12.31] Diagnosis: Other abnormal glucose[ICD10: R73.09] Diagnosis: Encounter for screening for malignant neoplasm of cervix[ICD10: Z12.4 ] [facility] CPT-4: 96059 05/06/2015 ([id number]) [id number] EST. PATIENT, LEVEL III Diagnosis: Dysuria[ICD9: 788.1] Luba Hudson MD, [facility] CPT-4: 27853 09/25/2014 ([id number]) [id number] EST. PATIENT, LEVEL III Diagnosis: ACUTE SINUSITIS[ICD9: 461.9] [facility] CPT- 4: 38320 09/11/2014 ([id number]) OFFICE VISIT, NEW - LEVEL 3 Diagnosis: ACUTE SINUSITIS[ICD9: 461.9] [facility] CPT- 4: 04156 08/27/2014 Plan of Care Planned Activity Notes Codes Status Date Appointment: Luba Hudson WPtel: [address] [place], [place] [id number] [place] (30 min) Complex 03/16/2016 Patient Education: Patient Medication Summary Completed 03/16/2016 Patient Education: Obesity Completed 03/16/2016 Care Plan: MRI BRAIN STEM W/O DYE Pending 03/16/2016 Patient Education: Patient Medication Summary Completed 11/18/2015 [facility]ment[facility] [phone] [id number] [place] (15 min) Moderate 11/11/2015 Appointment: [phone] [id number] [place] [facility] 05/06/2015 Patient Education: Patient Medication Summary Completed 05/06/2015 Care Plan: SCREENINGMAMMOGRAPHYDIGITAL LOINC : 89054-6 Ordered 05/06/2015 Care Plan: PAP Pending 05/06/2015 App[facility]ment: [facility] [phone] [id number] (30 min) Complex 03/26/2015 Appointment: [phone] [id number] [place] (15 min) Moderate 09/25/2014 Patient Education: Patient Medication Summary Completed 09/25/2014 Appointment: (10 min) Simple 09/11/2014 Patient Education: Patient Medication Summary Completed 09/11/2014 [facility]ment: [facility] [phone] [id number] [place] (10 min) Simple 08/27/2014 Patient Education: Patient Medication Summary Completed 08/27/2014 Instructions No Instructions
--- OUTSIDE RECORDS SUMMARY | 2017-10-21 16:22 | XMS REPORT | CCD ---
Author Author [facility] Organization [facility] Address [address] [place] [address] Phone Care Team Providers Care Stencil Inspector Name Role Phone PP Unavailable CCM Unavailable Summary Purpose Interface Exchange Insurance Providers Payer name Policy type / Coverage type Covered libertarian ID Effective Begin Date Effective End Date Blue Cross Blue [facility] Blue Cross/Blue Shield [id number] 2015 Unknown Family history Father Diagnosis Age At Onset Cancer Unknown Mother Diagnosis Age At Onset Stroke Unknown Social History Social History Element Codes Description Effective Dates Marital status Unknown Dennise 08/27/2014 Number of children Unknown 0 08/27/2014 Employment Unknown Currently employed [employer] 08/27/[address]: 139164218 Never smoker 08/27/[address]: 704736452 Never drinks alcohol 08/27/2014 Allergies, Adverse Reactions, Alerts Allergies, Adverse Reactions, Alerts data not found Past Medical History Illness Codes Condition Status Onset Date Resolved Date Atrophy of thyroid (acquired) ICD-9: 244.8 ICD-10: E03.4 Active 03/15/2016 Unknown Encounter for gynecological examination (general) (routine ) without abnormal findings ICD-9: V72.31 ICD-10: Z01.419 Active 05/05/2015 Unknown Other abnormal glucose ICD-9: 790.29 ICD-10: R73.09 Active 11/17/2015 Unknown Weakness ICD-9: 780.79 ICD-10: R53.1 Active 03/15/2016 Unknown White matter disease, unspecified ICD-9: 348.89 ICD-10: R90.82 Active 03/15/2016 Unknown Major depressive disorder, recurrent, mild ICD-9: 296.31 ICD-10: F33.0 Active 11/17/2015 Unknown Psoriasis vulgaris ICD -9: 696.1 ICD-10: L40.0 Active 11/17/2015 Unknown Encounter for screening for malignant neoplasm of cervix ICD-9: V76.2 ICD-10: Z12.4 Active 05/05/2015 Unknown Encounter for screening mammogram for malignant neoplasm of breast ICD-9: V76.12 ICD-10: Z12.31 Active 05/05/2015 Unknown Dysuria ICD-9: 788.1 Active 09/24/2014 Unknown ACUTE SINUSITIS ICD-9 : 461.9 Active 09/10/2014 Unknown Problems Condition Codes Effective Dates Condition Status Atrophy of thyroid (acquired) ICD-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 ICD-10: E03.4 03/15/2016 Active Encounter for gynecological examination (general) (routine ) without abnormal findings ICD-9: V72.31 ICD-10: Z01.419 05/05/2015 Active Other abnormal glucose ICD-9: 790.29 ICD-10: R73.09 11/17/2015 Active Weakness ICD-9: 780.79 ICD-10: R53.1 03/15/2016 Active White matter disease, unspecified ICD-9: 348.89 ICD-10: R90.82 03/15/2016 Active Major depressive disorder, recurrent, mild ICD-9: 296.31 ICD-10: F33.0 11/17/2015 Active Psoriasis vulgaris ICD -9: 696.1 ICD-10: L40.0 11/17/2015 Active Encounter for screening for malignant neoplasm of cervix ICD-9: V76.2 ICD-10: Z12.4 05/05/2015 Active Encounter for screening mammogram for malignant neoplasm of breast ICD-9: V76.12 ICD-10: Z12.31 05/05/2015 Active Dysuria ICD-9: 788.1 09/24/2014 Active ACUTE SINUSITIS ICD-9 : 461.9 09/10/2014 Active Medications Medication Codes Instructions Start Date Stop Date Status Fill Instructions Transderm-Scop 1.5 mg transdermal patch (1 mg over 3 days) RxNorm: 856603 1 Patch TD Q72H 04/14/2017 05/13/2017 Active Lyrica 50 mg capsule RxNorm: 622899 1 Capsule(s) PO TID 201710/10/2017 Active clobetasol 0.05 % shampoo RxNorm: 007338 1 Application TOP daily as needed 02/14/2017 09/11/2017 Active clobetasol 0.05 % scalp solution RxNorm: 034818 1 Application TOP BID 02/14/2017 06/13/2017 Active levothyroxine 100 mcg tablet RxNorm: 089915 TAKE ONE TABLET BY MOUTH ONCE DAILY 01/24/2017 No Stop Date Active Acular 0.5 % eye drops RxNorm: 115208 1 Drop(s) OPH daily 01/10 No Stop Date Active amitriptyline 10 mg tablet RxNorm: 266846 TAKE ONE TABLET BY MOUTH ONCE DAILY 12/15/2016 06/12/2017 Active Lipitor 10 mg tablet RxNorm: 495748 TAKE 1 TABLET BY MOUTH DAILY 12/02/2016 05/30/2017 Active Generic For:LIPITOR 10MG TAB 12/01/2016 5:09:29 PM Lipitor 10 mg tablet RxNorm: 056030 TAKE 1 TABLET BY MOUTH DAILY 11/04/2016 12/01/2016 Inactive Generic For:LIPITOR 10MG TAB 11/03/2016 12:46:39 PM sertraline 50 mg tablet RxNorm: 100524 1.5 Tablet(s) PO QHS 03/201605/02/2017 Active Lyrica 50 mg capsule RxNorm: 347827 1 Capsule(s) PO TID 201612/03/2016 Inactive Lyrica 50 mg capsule RxNorm: 879668 1 Capsule(s) PO TID 201604/13/2017 Inactive clobetasol 0.05 % scalp solution RxNorm: 209071 1 Application TOP BID 08/18/2016 12/15/2016 Inactive Lipitor 10 mg tablet RxNorm: 475636 1 Tablet(s) PO daily 201611/03/2016 Inactive Lipitor 10 mg tablet RxNorm: 382449 1 Tablet(s) PO daily 201603/24/2016 Inactive Lipitor 10 mg tablet RxNorm: 974262 1 Tablet(s) PO daily 201607/12/2016 Inactive sertraline 50 mg tablet RxNorm: 054576 1.5 Tablet(s) PO QHS 10/04/2016 Inactive amitriptyline 10 mg tablet RxNorm: 307203 1/2 Tablet(s) PO daily 03/16/2016 No Stop Date Active levothyroxine 100 mcg tablet RxNorm: 723672 TAKE ONE TABLET BY MOUTH ONCE DAILY 01/20/2016 2017 Inactive sertraline 50 mg tablet RxNorm: 200080 1.5 Tablet(s) PO QHS 03/18/2016 Inactive Generic For:ZOLOFT 50 MG TAB 03/17/2015 1:56:21 PM clobetasol 0.05 % scalp solution RxNorm: 795076 1 Application TOP BID 11/20/2015 03/18/2016 Inactive Lyrica 50 mg capsule RxNorm: 398277 1 Capsule(s) PO TID 201509/05/2016 Inactive sertraline 50 mg tablet RxNorm: 868637 1.5 Tablet(s) PO QHS 11/19/2015 Inactive Generic For:ZOLOFT 50 MG TAB 03/17/2015 1:56:21 PM urea 20 % topical cream RxNorm: 684773 1 Application TOP BID 12/17/2015 Inactive clobetasol 0.05 % scalp solution RxNorm: 087044 1 Application TOP BID 11/18/2015 11/19/2015 Inactive sertraline 50 mg tablet RxNorm: 584306 1 Tablet(s) PO QHS TAKE ONE TABLET BY MOUTH AT BEDTIME 10/20/2015 11/17/2015 Inactive Generic For:ZOLOFT 50 MG TAB 03/17 1:56:21 PM Acular 0.5 % eye drops RxNorm: 128662 1 Drop(s) OPH daily 09/0901/09/2017 Inactive amitriptyline 10 mg tablet RxNorm: 309428 Tablet(s) PO daily 03/15/2016 Inactive [SAVINGS FOR NON-COVERED DRUGS -- BIN:[id number], PCN: [id number], Group: XXXXX , ID# [id number], Questions: . THIS IS NOT INSURANCE.] levothyroxine 100 mcg tablet RxNorm: 478796 1 Tablet(s) PO daily 07/30/2015 01/19/2016 Inactive sertraline 50 mg tablet RxNorm: 957439 1 Tablet(s) PO QHS TAKE ONE TABLET BY MOUTH AT BEDTIME 06/17/2015 10/14/2015 Inactive Generic For:ZOLOFT 50 MG TAB 03/17 1:56:21 PM triamcinolone acetonide 0.1 % topical cream RxNorm: 6266560 1 TOP TID as needed 05/09/2015 09/05/2015 Inactive triamcinolone acetonide 0.1 % topical cream RxNorm: 0027876 1 TOP TID as needed 05/09/2015 05/08/2015 Inactive Transderm-Scop 1.5 mg transdermal patch (1 mg over 3 days) RxNorm: 447662 1 Patch TD Q72H 05/06/2015 07/04/2015 Inactive Lyrica 50 mg capsule RxNorm: 900875 1 Capsule(s) PO TID 201506/25/2016 Inactive sertraline 50 mg tablet RxNorm: 016622 TAKE ONE TABLET BY MOUTH AT BEDTIME 03/17/2015 06/14/2015 Inactive Generic For:ZOLOFT 50 MG TAB 03/17/2015 1:56:21 PM sertraline 50 mg tablet RxNorm: 797987 Tablet(s) PO QHS 201403/09/2015 Inactive doxycycline hyclate 100 mg tablet RxNorm: 573588 1 Tablet(s) PO BID 09/11/2014 09/17/2014 Inactive Marilyn Allergy 180 mg tablet RxNorm: 095805 1 Tablet(s) PO daily 09/11/2014 10/10/2014 Inactive prednisone 20 mg tablet RxNorm: 014142 1 Tablet(s) PO BID 09/0509/04/2014 Inactive prednisone 20 mg tablet RxNorm: 191842 1 Tablet(s) PO BID 09/0509/09/2014 Inactive levofloxacin 500 mg tablet RxNorm: 902824 1 Tablet(s) PO daily 08/27/2014 09/05/2014 Inactive levothyroxine 100 mcg tablet RxNorm: 903576 1 Tablet(s) PO daily 08/27/2014 11/24/2014 Inactive Marilyn-D 12 Hour 60 mg-120 mg tablet,extended release RxNorm: 715129 1 Tablet(s) PO BID 08/27/2014 09/25/2014 Inactive Lyrica 50 mg capsule RxNorm: 368779 1 Capsule(s) PO TID 201411/17/2014 Inactive Lyrica 50 mg capsule RxNorm: 185510 1 Capsule(s) PO TID 201408/19/2014 Inactive sertraline 50 mg tablet RxNorm: 184109 Tablet(s) PO QHS 201408/12/2014 Inactive sertraline 50 mg tablet RxNorm: 183151 Tablet(s) PO QHS 201410/11/2014 Inactive amitriptyline 10 mg tablet RxNorm: 531732 Tablet(s) PO daily 08/09/2014 Inactive [SAVINGS FOR NON-COVERED DRUGS -- BIN:[id number], PCN: ASPROD1, Group: XXXXX , ID# [id number], Questions: . THIS IS NOT INSURANCE.] Transderm-Scop 1.5 mg transdermal 72 hour patch RxNorm: 695138 1 TD apply 1 patch to skin behind ear q 3 days, remove old patch 07/11/2014 07/22/2014 Inactive [ SAVINGS FOR NON-COVERED DRUGS -- BIN:619439, PCN: ASPROD1, Group: XXXXX, ID# [id number], Questions: . THIS IS NOT INSURANCE.] Transderm-Scop 1.5 mg transdermal 72 hour patch RxNorm: 627648 1 TD apply 1 patch to skin behind ear q 3 days, remove old patch 07/11/2014 07/10/2014 Inactive amitriptyline 10 mg tablet RxNorm: 087921 1 Tablet(s) PO daily 07/04/2014 07/10/2014 Inactive [SAVINGS FOR NON-COVERED DRUGS -- BIN:573524, PCN: ASPROD1, Group: XXXXX, ID# [email or web address], Questions: . THIS IS NOT INSURANCE.] amitriptyline 10 mg tablet RxNorm: 465108 1 Tablet(s) PO daily 07/04/2014 07/03/2014 Inactive Mucinex Allergy oral RxNorm: 232665 oral No Start Date Active Zyrtec 10 mg tablet RxNorm: 4860459 1 Tablet(s) PO daily No Start Date Active lutein oral RxNorm: 43366 oral No Start Date Active Flonase Allergy Relief 50 mcg/actuation nasal spray, suspension RxNorm: 0557782 1 [place] NASAL QHS as needed No Start Date Active Vitamin D3 2,000 unit tablet RxNorm: 906724 1 Tablet(s) PO daily No Start Date Active Gillian Aspirin oral RxNorm: 237945 oral No Start Date Active Calcium RxNorm: 1 Tablet(s) PO daily No Start Date 04/19/2017 Inactive Acular 0.5 % eye drops RxNorm: 133745 1 Drop(s) OPH daily No Start Date 09/09/2015 Inactive Vitamin C RxNorm: PO No Start Date 2016 Inactive Medication Administered No Medication Administered data Immunizations No Immunization data Assessments Condition Codes Effective Dates Other abnormal glucose ICD-10: R73.09 ICD-9: 790.29 04/20/2017 Encounter for gynecological examination (general) (routine) without abnormal findings ICD-10: Z01.419 ICD-9: V72.31 04/20/2017 Atrophy of thyroid (acquired) ICD-10: E03.4 ICD-9: 244.8 04/20/2017 White matter disease, unspecified ICD-10: R90.82 ICD-9: 348.89 03/16/2016 Weakness ICD-10: R53.1 ICD-9: 780.79 03/16/2016 Psoriasis vulgaris ICD-10: L40.0 ICD-9: 696.1 11/18/2015 Major depressive disorder, recurrent, mild ICD-10: F33.0 ICD-9: 296.31 11/18/2015 Encounter for screening for malignant neoplasm of cervix ICD -10: Z12.4 ICD-9: V76.2 05/06/2015 Encounter for screening mammogram for malignant neoplasm of breast ICD-10: Z12.31 ICD-9: V76.12 05/06/2015 Dysuria ICD-9: 788.1 09/25/2014 ACUTE SINUSITIS ICD-9: 461.9 09/11/2014 Reason For Visit Reason For Visit Effective Dates Notes hypothyroid 04/20/2017 hypothyroid 03/16/2016 hypothyroid 11/18/2015 well woman exam (40-65 years) 05/06/2015 sinus congestion 09/25/2014 sinus congestion 09/11/2014 sinus congestion 08/27/2014 Results Observation Observation Code Item Item Code Result Date Lipid Ord30 CHOL 235 mg/dL 03/17/2016 Lipid Ord30 HDL 50.0 mg/dl 03/17/2016 Lipid Ord30 TRIG 191 mg/dL 03/17/2016 Lipid Ord30 LDL 147 mg/dL 03/17/2016 Lipid Ord30 C/HDL 4.7 Ratio 03/17/2016 Comp Metabolic Sgs592 NA 137 mEq/L 03/17/2016 Comp Metabolic Rjh455 K 4.2 mEq/L 03/17/2016 Comp Metabolic Yul722 CL 101 mEq/L 03/17/2016 Comp Metabolic Uvg803 CO2 30.0 mEq/L 03/17/2016 Comp Metabolic Hcg776 ANION GAP 10 03/17/2016 Comp Metabolic Qrz109 GLUCOSE 93 mg/dL 03/17/2016 Comp Metabolic Wxb179 Creat 0.6 mg/dL 03/17/2016 Comp Metabolic Wtz657 eGFR 111 ml/min/1.73m2 03/17/2016 Comp Metabolic Law295 BUN 13 mg/dL 03/17/2016 Comp Metabolic Yna844 B/C Ratio 21.7 Ratio 03/17/2016 Comp Metabolic Knn704 CALCIUM 9.4 mg/dL 03/17/2016 Comp Metabolic Lks766 ALK PHOS 68 U/L 03/17/2016 Comp Metabolic Mzg039 AST(SGOT) 20 U/L 03/17/2016 Comp Metabolic Kuw899 ALT(SGPT) 21 U/L 03/17/2016 Comp Metabolic Bzw489 BILI T 0.4 mg/dL 03/17/2016 Comp Metabolic Hbq922 ALBUMIN 4.4 g/dL 03/17/2016 Comp Metabolic Jaz860 TPRO 6.7 g/dL 03/17/2016 Comp Metabolic Vqb780 GLOB 2.3 g/dL 03/17/2016 Comp Metabolic Kpb636 A/G Ratio 2.0 Ratio 03/17/2016 Comp Metabolic Nfm127 Osmo 274 mOsmo 03/17/2016 %Hba1C Twj499 % HbA1c 93642-2 5.8 % 03/17/2016 %Hba1C Dkj505 Gluc Ave 120 mg/dL 03/17/2016 Tsh Ord6 hTSH II 4.13 uIU/mL 03/17/2016 Cbc With Differential Ord2 WBC 5.64 K/ul 03/17/2016 Cbc With Differential Ord2 RBC 4.29 M/ul 03/17/2016 Cbc With Differential Ord2 HGB 12.4 g/dl 03/17/2016 Cbc With Differential Ord2 Neut% 59.8 % 03/17/2016 Cbc With Differential Ord2 HCT 37.9 % 03/17/2016 Cbc With Differential Ord2 MCV 88.3 fl 03/17/2016 Cbc With Differential Ord2 Lymph% 25.7 % 03/17/2016 Cbc With Differential Ord2 MCH 28.9 pg 03/17/2016 Cbc With Differential Ord2 Tift% 10.3 % 03/17/2016 Cbc With Differential Ord2 MCHC 32.7 pg 03/17/2016 Cbc With Differential Ord2 Eos% 3.7 % 03/17/2016 Cbc With Differential Ord2 PLT 342 K/ul 03/17/2016 Cbc With Differential Ord2 Baso% 0.5 % 03/17/2016 Cbc With Differential Ord2 RDW 13.8 % 03/17/2016 Cbc With Differential Ord2 Neut ABS# 3.37 K/ul 03/17/2016 Cbc With Differential Ord2 Lymph ABS# 1.45 K/ul 03/17/2016 Cbc With Differential Ord2 Tift ABS# 0.6 K/ul 03/17/2016 Cbc With Differential Ord2 Eos ABS# 0.2 K/ul 03/17/2016 Cbc With Differential Ord2 Baso ABS# 0.0 K/ul 03/17/2016 Free T4 Mrt299 FREE T4 0.81 ng/dL 03/17/2016 %Hba1C Dzn303 % HbA1c 20848-9 6.3 % 11/19/2015 %Hba1C Rjs759 Gluc Ave 134 mg/dL 11/19/2015 %Hba1C Bpd405 % HbA1c 20922-7 5.9 % 05/06/2015 %Hba1C Wip764 Gluc Ave 123 mg/dL 05/06/2015 Review of Systems System Result Effective Dates Constitutional No recent illness 2017 Constitutional No chills 04/20/2017 Constitutional No fatigue 04/20/2017 Constitutional No fever 04/20/2017 Constitutional No malaise 04/20/2017 Eyes No eye erythema 04/20/2017 Eyes No eye discharge 04/20/2017 Eyes No eye erythema 04/20/2017 Eyes No vision change 04/20/2017 Ears/Nose/Throat/Neck No nasal allergies 04/20/2017 Ears/Nose/Throat/Neck No nasal discharge 04/20/2017 Ears/Nose/Throat/Neck No sore throat Ears/Nose/Throat/Neck No postnasal drip 04/20/2017 Ears/Nose/Throat/Neck No sinus congestion 04/20/2017 Cardiovascular No chest pain/pressure Cardiovascular No dyspnea 04/20/2017 Respiratory No chest congestion 2017 Respiratory No cough 04/20/2017 Gastrointestinal No abdominal pain 2017 Gastrointestinal No constipation 2017 Gastrointestinal No diarrhea 04/20/2017 Gastrointestinal No gastroesophageal reflux 04/20/2017 Gastrointestinal No vomiting 04/20/2017 Dermatologic No rash 04/20/2017 Psychiatric No anxiety 04/20/2017 Psychiatric No depression 04/20/2017 Respiratory No dyspnea 04/20/2017 Gastrointestinal No nausea 04/20/2017 Musculoskeletal No joint complaint 2017 Neurologic No alteration of consciousness 04/20/2017 Neurologic No mental status change 2017 Constitutional No recent illness 2016 Constitutional No [...] general appearance Hygiene/Attention to Grooming: good hygiene 04/20/2017 None Full Exam - General 1994 Eyes conjunctiva /eyelids Overall: conjunctiva clear 04/20/2017 None Full Exam - General 1994 Eyes conjunctiva /eyelids Overall: cornea clear 04/20/2017 None Full Exam - General 1994 Eyes conjunctiva /eyelids Overall: eyelids normal 04/20/2017 None Full Exam - General 1994 Eyes pupils and irises Overall: pupils equal, round, reactive to light and accomodation 04/20/2017 None Full Exam - General 1994 Ears/Nose/Throat otoscopic exam Overall: external auditory canals clear 04/20/2017 None Full Exam - General 1994 Ears/Nose/Throat otoscopic exam Overall: tympanic membranes clear 04/20/2017 None Full Exam - General 1994 Ears/Nose/Throat lips/teeth/gingiva Overall: benign lips 04/20/2017 None Full Exam - General 1994 Ears/Nose/Throat oral cavity/pharynx/larynx Overall: oral mucosa clear 04/20/2017 None Full Exam - General 1994 Ears/Nose/Throat oral cavity/pharynx/larynx Overall: oropharyngeal mucosa clear 04/20/2017 None Full Exam - General 1994 Respiratory auscultation Overall: breath sounds clear bilaterally 04/20/2017 None Full Exam - General 1994 Respiratory respiratory effort/rhythm Overall: no retractions 04/20/2017 None Full Exam - General 1994 Respiratory respiratory effort/rhythm Overall: normal rate 04/20/2017 None Full Exam - General 1994 Cardiovascular extremities Overall: no clubbing 04/20/2017 None Full Exam - General 1994 Cardiovascular auscultation of heart Overall: regular rate 04/20/2017 None Full Exam - General 1994 Cardiovascular auscultation of heart Overall: normal heart sounds 04/20/2017 None Full Exam - General 1994 Abdomen abdominal exam Overall: no tenderness 04/20/2017 None Full Exam - General 1994 Abdomen abdominal exam Overall: normal bowel sounds 04/20/2017 None Full Exam - General 1994 Lymphatic neck nodes Overall: anterior cervical chain benign 04/20/2017 None Full Exam - General 1994 Lymphatic neck nodes Overall: posterior cervical chain benign 04/20/2017 None Full Exam - General 1994 Neurologic cranial nerves Overall: crainial nerves 2 - 12 grossly intact 04/20/2017 None Full Exam - General 1994 Psychiatric orientation/consciousness Overall: oriented to person, place and time 04/20/2017 None Full Exam - General 1994 Psychiatric mood and affect Overall: normal mood and affect 04/20/2017 None Full Exam - General 1994 Constitutional general appearance Overall: well developed 04/20/2017 None Full Exam - General 1994 Constitutional general appearance Overall: in no acute distress 04/20/2017 None Full Exam - General 1994 Constitutional general appearance Overall: well nourished 04/20/2017 None Full Exam - General 1994 Musculoskeletal head and neck Overall: head atraumatic 04/20/2017 None Full Exam - General 1994 Psychiatric appearance Overall: well-groomed, good eye contact 04/20/2017 None Full Exam - General 1994 Constitutional [...] Codes Date URINALYSIS NONAUTO W/O SCOPE CPT-4: 70059 09/25/2014 Vital Signs Date Vital 04/20/2017 Blood Pressure 1: 116/68 Code : 8480-6 BMI: 28.3 Code : 90878-4 Heart Rate 1 : 79 bpm Height: 5'6" SpO2: 96% Weight: 178 lbs 03/16/2016 Blood Pressure 1: 128/76 Code : 8480-6 BMI: 27.5 Code : 62325-4 Heart Rate 1 : 72 bpm Height: 5'6" SpO2: 98% Weight: 173 lbs 11/18/2015 Blood Pressure 1: 120/68 Code : 8480-6 BMI: 27.2 Code : 04011-5 Heart Rate 1 : 71 bpm Height: 5'6" SpO2: 98% Weight: 171 lbs 05/06/2015 Blood Pressure 1: 120/72 Code : 8480-6 BMI: 26.2 Code : 30736-6 Heart Rate 1 : 73 bpm Height: 5'6" SpO2: 98% Weight: 165 lbs 09/25/2014 Blood Pressure 1: 120/76 Code : 8480-6 BMI: 27.0 Code : 41656-3 Heart Rate 1 : 79 bpm Height: 5'6" SpO2: 98% Weight: 170 lbs 09/11/2014 Blood Pressure 1: 132/68 Code : 8480-6 BMI: 26.9 Code : 60680-4 Heart Rate 1 : 71 bpm Height: 5'6" SpO2: 97% Weight: 169 lbs 08/27/2014 Blood Pressure 1: 120/64 Code : 8480-6 BMI: 26.6 Code : 54585-3 Heart Rate 1 : 75 bpm Height: 5'7" SpO2: 98% Weight: 170 lbs Functional Status No Functional Status data History of Present Illness Symptom Name Status Result Effective Date Notes hypothyroid Onset and Resolution ongoing 04/20/2017 None hypothyroid Alleviating Factors medication 04/20/2017 None medication follow up Location oral intake 04/20/2017 None nausea Timing of Episodes in the evening 04/20/2017 None nausea Exacerbating Factors medication 04/20/2017 None nausea Quality intermittent 04/20/2017 None medication follow up Additional Comments medication use 04/20/2017 None medication follow up Quality chronic 04/20/2017 None hypothyroid Onset and Resolution ongoing 03/16/2016 None [...] data Encounters Encounter Performer Location Codes Date ([id number]) PREV VISIT EST AGE 40-64 Diagnosis: Encounter for gynecological examination (general) (routine) without abnormal findings[ICD10: Z01.419] Diagnosis: Atrophy of thyroid (acquired)[ICD10: E03.4] Diagnosis: Other abnormal glucose[ICD10: R73.09] [facility] CPT-4: 35779 04/20/2017 ([id number]) 22152 EST. PATIENT, LEVEL IV Diagnosis: Atrophy of thyroid (acquired)[ICD10: E03.4] Diagnosis: Weakness[ICD10: R53.1] [facility] CPT-4: 12541 03/16/2016 ([id number]) 80698 EST. PATIENT, LEVEL IV Diagnosis: Other abnormal glucose[ICD10: R73.09] Diagnosis: Atrophy of thyroid (acquired)[ICD10: E03.4] Diagnosis: Psoriasis vulgaris[ICD10: L40.0] Diagnosis: Major depressive disorder, recurrent, mild[ICD10: F33.0] [facility] CPT-4: 03440 11/18/2015 ([id number]) PREV VISIT EST AGE 40-64 Diagnosis: Encounter for gynecological examination (general) (routine) without abnormal findings[ICD10: Z01.419] Diagnosis: Encounter for screening mammogram for malignant neoplasm of breast[ ICD10: Z12.31] Diagnosis: Other abnormal glucose[ICD10: R73.09] Diagnosis: Encounter for screening for malignant neoplasm of cervix[ICD10: Z12.4 ] [facility] MD, [facility] CPT-4: 53122 05/06/2015 ([id number]) 65742 EST. PATIENT, LEVEL III Diagnosis: Dysuria[ICD9: 788.1] [facility] CPT-4: 18540 09/25/2014 ([id number]) 49791 EST. PATIENT, LEVEL III Diagnosis: ACUTE SINUSITIS[ICD9: 461.9] [facility], [facility] CPT- 4: 05347 09/11/2014 ([id number]) OFFICE VISIT, NEW - LEVEL 3 Diagnosis: ACUTE SINUSITIS[ICD9: 461.9] [facility] MD, [facility] CPT- 4: 82628 08/27/2014 Plan of Care Planned Activity Notes Codes Status Date Care Plan: Comp Metabolic Pending 04/21/2017 Care Plan: Cbc With Differential Pending 04/21/2017 Care Plan: %Hba1C LOINC : 28650-0 Pending 04/21/2017 Care Plan: Tsh Pending 04/21/2017 Care Plan: Lipid Pending 04/21/2017 Care Plan: Free T4 Pending 04/21/2017 Visit Plan: Well Adult - pt was counseled about diet, exercise, and encouraged to follow a heart healthy diet and increase activity level. The patient was instructed to RTC yearly for well adult exams and PRN for acute illnesses. The pt was also instructed to have yearly labs for check of cholesterol, thyroid, chem panel, CBC, and renal functioning. Hypothyroidism - pt with chronic hypothyroidism, continue with current medication, will monitor pt to signs or symptoms of lack of adequate supplementation. Pt is to continue with current dose of medication unless directed otherwise. Check labs at regular intervals wither q 3 months or q 6 months based on previous levels of control. 04/20/2017 Appointment: Nayely Bai WPtel: [address] [place], [place] [phone] (15 min) Moderate 04/20/2017 Patient Education: Patient Medication Summary Completed 04/20/2017 Visit Plan: Hypothyroidism - pt with chronic hypothyroidism , continue with current medication, will monitor pt to signs or symptoms of lack of adequate supplementation. Pt is to continue with current dose of medication unless directed otherwise. Check labs at regular intervals wither q 3 months or q 6 months based on previous levels of control. Memory loss - check imaging/MRI 03/16/2016 Appointment: [facility] WPtel: [address] [place], [place] [phone] (30 min) Complex 03/16/2016 Patient Education: Patient Medication Summary Completed 03/16/2016 Patient Education: Obesity Completed 03/16/2016 Care Plan: MRI BRAIN STEM W/O DYE Pending 03/16/2016 Visit Plan: Hypothyroidism - pt with chronic hypothyroidism , continue with current medication, will monitor pt to signs or symptoms of lack of adequate supplementation. Pt is to continue with current dose of medication unless directed otherwise. Check labs at regular intervals wither q 3 months or q 6 months based on previous levels of control. Abnormal glucose - monitor glucose at home, cut back on carbohydrates Psoriasis - continue with use of clobetasol on scalp. Depression - RX sent to pharmacy - call if not improving. 11/18/2015 Patient Education: Patient Medication Summary Completed 11/18/2015 Appointment: [facility] WPtel: [address] [place], [place] [phone] (15 min) Moderate 11/11/2015 Visit Plan: Well Adult Female - exam completed. Pap and breast exam completed. Pt will be called with results of her testing. She was advised to continue with yearly annual exams. Safe sex practices discussed during office visit today. Call if any abnormal gynecologic issues during the next year, otherwise, RTC yearly or prn. 05/06/2015 Appointment: [facility] WPtel: [address] [place], [place] [phone] Well Woman 05/06/2015 Patient Education: Patient Medication Summary Completed 05/06/2015 Care Plan: SCREENINGMAMMOGRAPHYDIGITAL LOINC : 48172-8 Ordered 05/06/2015 Care Plan: PAP Pending 05/06/2015 Appointment: [facility] Hudson WPtel: [address] [id number] (30 min) Complex 03/26/2015 Visit Plan: UTI - pt with positive urinalysis - culture sent if appropriate. Antibiotic electronically prescribed to pt's pharmacy of choice. Pt to call if symptoms do not improve. 09/25/2014 Appointment: Luba Hudson WPtel: [facility] (15 min) Moderate 09/25/2014 Patient Education: Patient Medication Summary Completed 09/25/2014 Visit Plan: Sinusitis - Pt has acute infection - pain in face, maxillary region, Pt informed to use decongestant, RX given to patient, sinus rinses also recommended. Recommend take start on probiotic while on antibiotics. Call if symptoms do not show improvement. 09/11/2014 Appointment: (10 min) Simple 09/11/2014 Patient Education: Patient Medication Summary Completed 09/11/2014 Visit Plan: Sinusitis - Pt has acute infection - pain in face, maxillary region, Pt informed to use decongestant, RX given to patient, sinus rinses also recommended. Call if symptoms do not show improvement. LEVAQUIN 500MG DAILY X 10 DAYS AND MARILYN D 120/60MG #60 GIVEN TO PATIENT 08/27/2014 Appointment: Luba Hudson WPtel: [facility] (10 min) Simple 08/27/2014 Patient Education: Patient Medication Summary Completed 08/27/2014 Instructions Comment . Hypothyroidism - pt with chronic hypothyroidism, continue with current medication, will monitor pt to signs or symptoms of lack of adequate supplementation. Pt is to continue with current dose of medication unless directed otherwise. Check labs at regular intervals wither q 3 months or q 6 months based on previous levels of control. Memory loss - check imaging/MRI . Well Adult - pt was counseled about diet, exercise, and encouraged to follow a heart healthy diet and increase activity level. The patient was instructed to RTC yearly for well adult exams and PRN for acute illnesses. The pt was also instructed to have yearly labs for check of cholesterol, thyroid, chem panel, CBC, and renal functioning. Hypothyroidism - pt with chronic hypothyroidism, continue with current medication, will monitor pt to signs or symptoms of lack of adequate supplementation. Pt is to continue with current dose of medication unless directed otherwise. Check labs at regular intervals wither q 3 months or q 6 months based on previous levels of control. . Well Adult Female - exam completed. Pap and breast exam completed. Pt will be called with results of her testing. She was advised to continue with yearly annual exams. Safe sex practices discussed during office visit today. Call if any abnormal gynecologic issues during the next year, otherwise, RTC yearly or prn. Take antiboiotic as prescribed, continue probiotic, zyrtec and Marilyn and flonase. If can't tolerate Marilyn-D, take regular Marilyn. call for worsening symptoms, or lack of improvement on prescribed treatment course. Try to stop using Afrin. . Sinusitis - Pt has acute infection - pain in face, maxillary region, Pt informed to use decongestant, RX given to patient, sinus rinses also recommended. Recommend take start on probiotic while on antibiotics. Call if symptoms do not show improvement. . UTI - pt with positive urinalysis - culture sent if appropriate. Antibiotic electronically prescribed to pt's pharmacy of choice. Pt to call if symptoms do not improve. . Sinusitis - Pt has acute infection - pain in face, maxillary region, Pt informed to use decongestant, RX given to patient, sinus rinses also recommended. Call if symptoms do not show improvement. LEVAQUIN 500MG DAILY X 10 DAYS AND MARILYN D 120/60MG #60 GIVEN TO PATIENT . Hypothyroidism - pt with chronic hypothyroidism, continue with current medication, will monitor pt to signs or symptoms of lack of adequate supplementation. Pt is to continue with current dose of medication unless directed otherwise. Check labs at regular intervals wither q 3 months or q 6 months based on previous levels of control. Abnormal glucose - monitor glucose at home, cut back on carbohydrates Psoriasis - continue with use of clobetasol on scalp. Depression - RX sent to pharmacy - call if not improving.
--- OUTSIDE RECORDS SUMMARY | 2017-10-21 16:23 | XMS REPORT | CCD ---
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 Name Role Phone PP Unavailable CCM Unavailable Summary Purpose Interface Exchange Insurance Providers Payer name Policy type / Coverage type Covered democrat ID Effective Begin Date Effective End Date Blue Cross Blue [facility] Blue Cross/Blue Shield [id number] 2015 Unknown Family history Father Diagnosis Age At Onset Cancer Unknown Mother Diagnosis Age At Onset Stroke Unknown Social History Social History Element Codes Description Effective Dates Marital status Unknown Dennise 08/27/2014 Number of children Unknown 0 08/27/2014 Employment Unknown Currently employed [employer] 08/27/[address]: 249886810 Never smoker 08/27/[address]: 804123612 Never drinks alcohol 08/27/2014 Allergies, Adverse Reactions, [...] patch (1 mg over 3 days) RxNorm: 054630 1 Patch TD Q72H 04/14/2017 05/13/2017 Active Lyrica 50 mg capsule RxNorm: 862160 1 Capsule(s) PO TID 201710/10/2017 Active clobetasol 0.05 % shampoo RxNorm: 349369 1 Application TOP daily as needed 02/14/2017 09/11/2017 Active clobetasol 0.05 % scalp solution RxNorm: 790146 1 Application TOP BID 02/14/2017 06/13/2017 Active levothyroxine 100 mcg tablet RxNorm: 634697 TAKE ONE TABLET BY MOUTH ONCE DAILY 01/24/2017 No Stop Date Active Acular 0.5 % eye drops RxNorm: 679002 1 Drop(s) OPH daily 01/10 No Stop Date Active amitriptyline 10 mg tablet RxNorm: 273799 TAKE ONE TABLET BY MOUTH ONCE DAILY 12/15/2016 06/12/2017 Active Lipitor 10 mg tablet RxNorm: 705189 TAKE 1 TABLET BY MOUTH DAILY 12/02/2016 05/30/2017 Active Generic For:LIPITOR 10MG TAB 12/01/2016 5:09:29 PM Lipitor 10 mg tablet RxNorm: 754233 TAKE 1 TABLET BY MOUTH DAILY 11/04/2016 12/01/2016 Inactive Generic For:LIPITOR 10MG TAB 11/03/2016 12:46:39 PM sertraline 50 mg tablet RxNorm: 817491 1.5 Tablet(s) PO QHS 03/201605/02/2017 Active Lyrica 50 mg capsule RxNorm: 791154 1 Capsule(s) PO TID 201612/03/2016 Inactive Lyrica 50 mg capsule RxNorm: 978879 1 Capsule(s) PO TID 201612/01/2016 Inactive clobetasol 0.05 % scalp solution RxNorm: 170745 1 Application TOP BID 08/18/2016 12/15/2016 Inactive Lipitor 10 mg tablet RxNorm: 198041 1 Tablet(s) PO daily 201611/03/2016 Inactive Lipitor 10 mg tablet RxNorm: 027182 1 Tablet(s) PO daily 201603/24/2016 Inactive Lipitor 10 mg tablet RxNorm: 680206 1 Tablet(s) PO daily 201607/12/2016 Inactive sertraline 50 mg tablet RxNorm: 873145 1.5 Tablet(s) PO QHS 10/04/2016 Inactive amitriptyline 10 mg tablet RxNorm: 860893 1/2 Tablet(s) PO daily 03/16/2016 No Stop Date Active levothyroxine 100 mcg tablet RxNorm: 342475 TAKE ONE TABLET BY MOUTH ONCE DAILY 01/20/2016 2017 Inactive sertraline 50 mg tablet RxNorm: 993450 1.5 Tablet(s) PO QHS 03/18/2016 Inactive Generic For:ZOLOFT 50 MG TAB 03/17/2015 1:56:21 PM clobetasol 0.05 % scalp solution RxNorm: 897799 1 Application TOP BID 11/20/2015 03/18/2016 Inactive Lyrica 50 mg capsule RxNorm: 075844 1 Capsule(s) PO TID 201509/05/2016 Inactive sertraline 50 mg tablet RxNorm: 229070 1.5 Tablet(s) PO QHS 11/19/2015 Inactive Generic For:ZOLOFT 50 MG TAB 03/17/2015 1:56:21 PM urea 20 % topical cream RxNorm: 209585 1 Application TOP BID 12/17/2015 Inactive clobetasol 0.05 % scalp solution RxNorm: 361517 1 Application TOP BID 11/18/2015 11/19/2015 Inactive sertraline 50 mg tablet RxNorm: 614617 1 Tablet(s) PO QHS TAKE ONE TABLET BY MOUTH AT BEDTIME 10/20/2015 11/17/2015 Inactive Generic For:ZOLOFT 50 MG TAB 03/17 1:56:21 PM Acular 0.5 % eye drops RxNorm: 611315 1 Drop(s) OPH daily 09/0901/09/2017 Inactive amitriptyline 10 mg tablet RxNorm: 934110 Tablet(s) PO daily 03/15/2016 Inactive [SAVINGS FOR NON-COVERED DRUGS -- BIN:[id number], PCN: ASPROD1, Group: XXXXX , ID# [id number], Questions: . THIS IS NOT INSURANCE.] levothyroxine 100 mcg tablet RxNorm: 262638 1 Tablet(s) PO daily 07/30/2015 01/19/2016 Inactive sertraline 50 mg tablet RxNorm: 882330 1 Tablet(s) PO QHS TAKE ONE TABLET BY MOUTH AT BEDTIME 06/17/2015 10/14/2015 Inactive Generic For:ZOLOFT 50 MG TAB 03/17 1:56:21 PM triamcinolone acetonide 0.1 % topical cream RxNorm: 8874761 1 TOP TID as needed 05/09/2015 09/05/2015 Inactive triamcinolone acetonide 0.1 % topical cream RxNorm: 9151935 1 TOP TID as needed 05/09/2015 05/08/2015 Inactive Transderm-Scop 1.5 mg transdermal patch (1 mg over 3 days) RxNorm: 889195 1 Patch TD Q72H 05/06/2015 07/04/2015 Inactive Lyrica 50 mg capsule RxNorm: 556162 1 Capsule(s) PO TID 201506/25/2016 Inactive sertraline 50 mg tablet RxNorm: 538978 TAKE ONE TABLET BY MOUTH AT BEDTIME 03/17/2015 06/14/2015 Inactive Generic For:ZOLOFT 50 MG TAB 03/17/2015 1:56:21 PM sertraline 50 mg tablet RxNorm: 160735 Tablet(s) PO QHS 201403/09/2015 Inactive doxycycline hyclate 100 mg tablet RxNorm: 188601 1 Tablet(s) PO BID 09/11/2014 09/17/2014 Inactive Sandy Allergy 180 mg tablet RxNorm: 707373 1 Tablet(s) PO daily 09/11/2014 10/10/2014 Inactive prednisone 20 mg tablet RxNorm: 454686 1 Tablet(s) PO BID 09/0509/04/2014 Inactive prednisone 20 mg tablet RxNorm: 020984 1 Tablet(s) PO BID 09/0509/09/2014 Inactive levofloxacin 500 mg tablet RxNorm: 607976 1 Tablet(s) PO daily 08/27/2014 09/05/2014 Inactive levothyroxine 100 mcg tablet RxNorm: 237092 1 Tablet(s) PO daily 08/27/2014 11/24/2014 Inactive Sandy-D 12 Hour 60 mg-120 mg tablet,extended release RxNorm: 564706 1 Tablet(s) PO BID 08/27/2014 09/25/2014 Inactive Lyrica 50 mg capsule RxNorm: 309592 1 Capsule(s) PO TID 201411/17/2014 Inactive Lyrica 50 mg capsule RxNorm: 537207 1 Capsule(s) PO TID 201408/19/2014 Inactive sertraline 50 mg tablet RxNorm: 743625 Tablet(s) PO QHS 201408/12/2014 Inactive sertraline 50 mg tablet RxNorm: 215258 Tablet(s) PO QHS 201410/11/2014 Inactive amitriptyline 10 mg tablet RxNorm: 682364 Tablet(s) PO daily 08/09/2014 Inactive [SAVINGS FOR NON-COVERED DRUGS -- BIN:[id number], PCN: ASPROD1, Group: XXXXX , ID# [id number], Questions: . THIS IS NOT INSURANCE.] Transderm-Scop 1.5 mg transdermal 72 hour patch RxNorm: 671638 1 TD apply 1 patch to skin behind ear q 3 days, remove old patch 07/11/2014 07/22/2014 Inactive [ SAVINGS FOR NON-COVERED DRUGS -- BIN:[id number], PCN: ASPROD1, Group: XXXXX, ID# [id number], Questions: . THIS IS NOT INSURANCE.] Transderm-Scop 1.5 mg transdermal 72 hour patch RxNorm: 684986 1 TD apply 1 patch to skin behind ear q 3 days, remove old patch 07/11/2014 07/10/2014 Inactive amitriptyline 10 mg tablet RxNorm: 957677 1 Tablet(s) PO daily 07/04/2014 07/10/2014 Inactive [SAVINGS FOR NON-COVERED DRUGS -- BIN:321243, PCN: ASPROD1, Group: XXXXX, ID# [id number], Questions: . THIS IS NOT INSURANCE.] amitriptyline 10 mg tablet RxNorm: 335832 1 Tablet(s) PO daily 07/04/2014 07/03/2014 Inactive Zyrtec 10 mg tablet RxNorm: 4777840 1 Tablet(s) PO daily No Start Date Active lutein oral RxNorm: 73839 oral No Start Date Active Flonase Allergy Relief 50 mcg/actuation nasal spray, suspension RxNorm: 7860388 1 [place] NASAL QHS as needed No Start Date Active Vitamin D3 2,000 unit tablet RxNorm: 881516 1 Tablet(s) PO daily No Start Date Active Calcium RxNorm: 1 Tablet(s) PO daily No Start Date Active Gillian Aspirin oral RxNorm: 551752 oral No Start Date Active Acular 0.5 % eye drops RxNorm: 115285 1 Drop(s) OPH daily No Start Date 09/09/2015 Inactive Vitamin C RxNorm: PO No Start Date 2016 Inactive Medication Administered No Medication Administered data Immunizations No Immunization data Assessments Condition Codes Effective Dates Atrophy of thyroid (acquired) ICD-10: E03.4 ICD-9: 244.8 03/16/2016 Weakness ICD-10: R53.1 ICD-9: 780.79 03/16/2016 White matter disease, unspecified ICD-10: R90.82 ICD-9: 348.89 03/16/2016 Psoriasis vulgaris ICD-10: L40.0 ICD-9: 696.1 [...] 03/17/2016 Lipid Ord30 C/HDL 4.7 Ratio 03/17/2016 Free T4 Jzu836 FREE T4 0.81 ng/dL 03/17/2016 Tsh Ord6 hTSH II 4.13 uIU/mL 03/17/2016 %Hba1C Nau846 % HbA1c 83992-5 5.8 % 03/17/2016 %Hba1C Hfd472 Gluc Ave 120 mg/dL 03/17/2016 Comp Metabolic Vva371 NA 137 mEq/L 03/17/2016 Comp Metabolic Ivp104 K 4.2 mEq/L 03/17/2016 Comp Metabolic Eoa993 CL 101 mEq/L 03/17/2016 Comp Metabolic Zrf775 CO2 30.0 mEq/L 03/17/2016 Comp Metabolic Pbx988 ANION GAP 10 03/17/2016 Comp Metabolic Rih619 GLUCOSE 93 mg/dL 03/17/2016 Comp Metabolic Hff924 Creat 0.6 mg/dL 03/17/2016 Comp Metabolic Mul415 eGFR 111 ml/min/1.73m2 03/17/2016 Comp Metabolic Kzh414 BUN 13 mg/dL 03/17/2016 Comp Metabolic Knd920 B/C Ratio 21.7 Ratio 03/17/2016 Comp Metabolic Dcv425 CALCIUM 9.4 mg/dL 03/17/2016 Comp Metabolic Xby703 ALK PHOS 68 U/L 03/17/2016 Comp Metabolic Fcb950 AST(SGOT) 20 U/L 03/17/2016 Comp Metabolic Mhc666 ALT(SGPT) 21 U/L 03/17/2016 Comp Metabolic Hsp937 BILI T 0.4 mg/dL 03/17/2016 Comp Metabolic Jtf903 ALBUMIN 4.4 g/dL 03/17/2016 Comp Metabolic Gzq257 TPRO 6.7 g/dL 03/17/2016 Comp Metabolic Exk493 GLOB 2.3 g/dL 03/17/2016 Comp Metabolic Rms264 A/G Ratio 2.0 Ratio 03/17/2016 Comp Metabolic Kjh990 Osmo 274 mOsmo 03/17/2016 Cbc With Differential Ord2 WBC 5.64 K/ul 03/17/2016 Cbc With Differential Ord2 RBC 4.29 M/ul 03/17/2016 Cbc With Differential Ord2 HGB 12.4 g/dl 03/17/2016 Cbc With Differential Ord2 HCT 37.9 % 03/17/2016 Cbc With Differential Ord2 Neut% 59.8 % 03/17/2016 Cbc With Differential Ord2 MCV 88.3 fl 03/17/2016 Cbc With Differential Ord2 Lymph% 25.7 % 03/17/2016 Cbc With Differential Ord2 [place]% 10.3 % 03/17/2016 Cbc With Differential Ord2 MCH 28.9 pg 03/17/2016 Cbc With Differential Ord2 MCHC 32.7 pg 03/17/2016 Cbc With Differential Ord2 Eos% 3.7 % 03/17/2016 Cbc With Differential Ord2 PLT 342 K/ul 03/17/2016 Cbc With Differential Ord2 Baso% 0.5 % 03/17/2016 Cbc With Differential Ord2 Neut ABS# 3.37 K/ul 03/17/2016 Cbc With Differential Ord2 RDW 13.8 % 03/17/2016 Cbc With Differential Ord2 Lymph ABS# 1.45 K/ul 03/17/2016 Cbc With Differential Ord2 [place] ABS# 0.6 K/ul 03/17/2016 Cbc With Differential Ord2 Eos ABS# 0.2 K/ul 03/17/2016 Cbc With Differential Ord2 Baso ABS# 0.0 K/ul 03/17/2016 %Hba1C Aeu128 % HbA1c 72845-2 6.3 % 11/19/2015 %Hba1C Kue362 Gluc Ave 134 mg/dL 11/19/2015 %Hba1C Bdv054 % HbA1c 80464-6 5.9 % 05/06/2015 %Hba1C Jsv009 Gluc Ave 123 mg/dL 05/06/2015 Review of [...] lips 03/16/2016 None Full Exam - General 1995 Ears/Nose/Throat lips/teeth/gingiva Overall: normal dentition 03/16/2016 None [...] Codes Date URINALYSIS NONAUTO W/O SCOPE CPT-4: 78323 09/25/2014 Vital Signs Date Vital 03/16/2016 Blood Pressure 1: 128/76 Code : 8480-6 BMI: 27.5 Code : 35875-1 Heart Rate 1 : 72 bpm Height: 5'6" SpO2: 98% Weight: 173 lbs 11/18/2015 Blood Pressure 1: 120/68 Code : 8480-6 BMI: 27.2 Code : 50335-5 Heart Rate 1 : 71 bpm Height: 5'6" SpO2: 98% Weight: 171 lbs 05/06/2015 Blood Pressure 1: 120/72 Code : 8480-6 BMI: 26.2 Code : 43792-7 Heart Rate 1 : 73 bpm Height: 5'6" SpO2: 98% Weight: 165 lbs 09/25/2014 Blood Pressure 1: 120/76 Code : 8480-6 BMI: 27.0 Code : 35079-8 Heart Rate 1 : 79 bpm Height: 5'6" SpO2: 98% Weight: 170 lbs 09/11/2014 Blood Pressure 1: 132/68 Code : 8480-6 BMI: 26.9 Code : 88363-7 Heart Rate 1 : 71 bpm Height: 5'6" SpO2: 97% Weight: 169 lbs 08/27/2014 Blood Pressure 1: 120/64 Code : 8480-6 BMI: 26.6 Code : 03869-1 Heart Rate 1 : 75 bpm Height: [...] data Encounters Encounter Performer Location Codes Date [id number]) [id number] EST. PATIENT, LEVEL IV Diagnosis: Atrophy of thyroid (acquired)[ICD10: E03.4] Diagnosis: Weakness[ICD10: R53.1] [facility] MD, [facility] CPT-4: 49486 03/16/2016 ([id number]) 07498 EST. PATIENT, LEVEL IV Diagnosis: Other abnormal glucose[ICD10: R73.09] Diagnosis: Atrophy of thyroid (acquired)[ICD10: E03.4] Diagnosis: Psoriasis vulgaris[ICD10: L40.0] Diagnosis: Major depressive disorder, recurrent, mild[ICD10: F33.0] Luba Hudson MD, [facility] CPT-4: 90416 11/18/2015 ([id number]) PREV VISIT EST AGE 40-64 Diagnosis: Encounter for gynecological examination (general) (routine) without abnormal findings[ICD10: Z01.419] Diagnosis: Encounter for screening mammogram for malignant neoplasm of breast[ ICD10: Z12.31] Diagnosis: Other abnormal glucose[ICD10: R73.09] Diagnosis: Encounter for screening for malignant neoplasm of cervix[ICD10: Z12.4 ] [facility] CPT-4: 65635 05/06/2015 ([id number]) 17171 EST. PATIENT, LEVEL III Diagnosis: Dysuria[ICD9: 788.1] [facility] CPT-4: 14955 09/25/2014 ([id number]) 67442 EST. PATIENT, LEVEL III Diagnosis: ACUTE SINUSITIS[ICD9: 461.9] [facility] CPT- 4: 12657 09/11/2014 ([id number]) OFFICE VISIT, NEW - LEVEL 3 Diagnosis: ACUTE SINUSITIS[ICD9: 461.9] [facility] CPT- 4: 98833 08/27/2014 Plan of Care Planned Activity Notes Codes Status Date Appointment: [phone] (30 [facility]) Complex 03/16/2016 Patient Education: Patient Medication Summary Completed 03/16/2016 Patient Education: Obesity Completed 03/16/2016 Care Plan: MRI BRAIN STEM W/O DYE Pending 03/16/2016 Patient Education: Patient Medication Summary Completed 11/18/2015 Appointment: Luba Hudson WPtel: [address] [facility] [place] (15 min) Moderate 11/11/2015 Appointment: [phone] [place] [facility] 05/06/2015 Patient Education: Patient Medication Summary Completed 05/06/2015 Care Plan: SCREENINGMAMMOGRAPHYDIGITAL LOINC : 52994-3 Ordered 05/06/2015 Care Plan: PAP Pending 05/06/2015 App[facility]ment: [phone] (30 min) Complex 03/26/2015 App[facility]ment: [phone] (15 min) Moderate 09/25/2014 Patient Education: Patient Medication Summary Completed 09/25/2014 Appointment: (10 min) Simple 09/11/2014 Patient Education: Patient Medication Summary Completed 09/11/2014 App[facility]ment: [phone] [place] (10 min) Simple 08/27/2014 Patient Education: Patient Medication Summary Completed 08/27/2014 Instructions No Instructions
--- OUTSIDE RECORDS SUMMARY | 2017-10-21 16:25 | XMS REPORT | Continuity of Care Document ---
Author Author [facility] Organization [facility] Address Unknown Phone Unavailable Allergies Active Description Code Type Severity Reaction Onset Reported/Identified Relationship to Patient Clinical Status Yes No Known Drug Allergies [id number] Drug Allergy Unknown N/A 01/09/2008 Medications There is no data. Problems Date Dx Coded Attending Type Code Diagnosis Diagnosed By 02/03/1539 TREASURE WISE, BENJIE Christianson Ot M77.11 LATERAL EPICONDYLITIS, RIGHT ELBOW 06/02/2010 Ot 211.0 06/02/2010 Ot 211.1 06/02/2010 Ot 455.3 06/02/2010 Ot 618.04 06/02/2010 Ot V76.51 04/05/2014 ANNETTE WISE, MELINDA Rice Ot V76.12 04/05/2014 JESS WISE, BENJIE Christianson Ot 241.1 04/19/2014 MELINDA BRYANT MD Ot V76.12 04/19/2014 JESS WISE, BENJIE Christianson Ot 241.1 04/30/2014 ANNETTE WISE, MELINDA Rice Ot 793.80 10/04/2014 JESS WISE, BENJIE Christianson Ot 473.9 10/18/2014 JESS WISE, BENJIE Christianson Ot 473.0 CHR MAXILLARY SINUSITIS 10/18/2014 JESS WISE, BENJIE Christianson Ot 473.1 CHR FRONTAL SINUSITIS 10/18/2014 BENJIE MERCADO MD Ot 473.2 CHR ETHMOIDAL SINUSITIS 10/18/2014 BENJIE MERCADO MD Ot 473.3 CHR SPHENOIDAL SINUSITIS 10/21/2014 JESS WISE, BENJIE Christianson Ot 473.9 11/22/2014 JESS WISE, BENJIE Christianson Ot 470 11/22/2014 JESS WISE, BENJIE Christianson Ot 473.9 11/22/2014 JESS WISE, BENJIE P Ot V72.63 11/22/2014 JESS WISE, BENJIE Christianson Ot V74.8 04/11/2015 Ot V76.12 04/11/2015 Ot V76.12 04/11/2015 Ot 244.9 04/11/2015 Ot 241.1 04/11/2015 Ot 241.0 04/11/2015 Ot 477.9 04/11/2015 Ot 780.93 04/11/2015 Ot 793.0 04/11/2015 Ot 528.9 04/11/2015 Ot 793.82 04/11/2015 Ot V76.12 04/11/2015 Ot 241.1 04/11/2015 Ot 793.80 04/11/2015 Ot 528.9 04/11/2015 NANETTE WISE, MELINDA M Ot 443.9 04/11/2015 ANNETTE WISE, MELINDA M Ot 793.89 04/11/2015 JESS WISE, BENJIE P Ot 241.0 04/11/2015 ANNETTE WISE, MELINDA M Ot V76.12 04/11/2015 JESS WISE, BENJIE P Ot 241.1 04/11/2015 ANNETTE WISE, MELINDA M Ot 793.80 04/11/2015 JESS WISE, BENJIE P Ot 473.9 04/11/2015 JESS WISE, BENJIE P Ot 470 04/11/2015 JESS WISE, BENJIE P Ot 473.9 04/11/2015 JESS WISE, BENJIE P Ot V72.63 04/11/2015 JESS WISE, BENJIE P Ot V74.8 04/18/2015 JESS WISE, BENJIE P Ot E04.2 04/18/2015 JESS WISE, BENJIE P Ot E04.2 05/22/2015 JESS WISE, BENJIE P Ot E04.2 06/03/2015 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 Ot Z12.31 12/23/2015 Ot V76.12 OTH SCREEN MAMMO-MALIGN NEOPLASM OF AUGIE 12/23/2015 Ot 244.9 HYPOTHYROIDISM NOS 12/23/2015 Ot 241.1 NONTOX MULTINODUL GOITER 12/23/2015 Ot 241.0 NONTOX UNINODULAR GOITER 12/23/2015 Ot 477.9 ALLERGIC RHINITIS NOS 12/23/2015 Ot 780.93 MEMORY LOSS 12/23/2015 Ot 793.0 NOSP (ABN) FINDINGS ON RADIOLOGICAL OT 12/23/2015 Ot 528.9 ORAL SOFT TISSUE DIS NEC 12/23/2015 Ot 793.82 INCONCLUSIVE MAMMOGRAM 12/23/2015 Ot V76.12 OTH SCREEN MAMMO-MALIGN NEOPLASM OF AUGIE 12/23/2015 Ot 241.1 NONTOX MULTINODUL GOITER 12/23/2015 Ot 793.80 UNSPEC ABNORMAL MAMMOGRAM 12/23/2015 Ot 528.9 ORAL SOFT TISSUE DIS NEC 12/23/2015 ANNETTE WISE, MELINDA Rice Ot 443.9 PERIPH VASCULAR DIS NOS 12/23/2015 ANNETTE WISE, MELINDA Rice Ot 793.89 OTH (ABN) FINDINGS ON RADIOLOGICAL EXAMI 12/23/2015 JESS WISE, BENJIE Christianson Ot 241.0 NONTOX UNINODULAR GOITER 12/23/2015 ANNETTE WISE, MELINDA Rice Ot V76.12 OTH SCREEN MAMMO-MALIGN NEOPLASM OF AUGIE 12/23/2015 JESS WISE, BENJIE Christianson Ot 241.1 NONTOX MULTINODUL GOITER 12/23/2015 ANNETTE WISE, MELINDA Rice Ot 793.80 UNSPEC ABNORMAL MAMMOGRAM 12/23/2015 JESS WISE, BENJIE Christianson Ot 473.9 CHRONIC SINUSITIS NOS 12/23/2015 JESS WISE, BENJIE Christianson Ot 470 DEVIATED NASAL SEPTUM 12/23/2015 BENJIE MERCADO MD Ot 473.9 CHRONIC SINUSITIS NOS 12/23/2015 JESS WISE, BENJIE Christianson Ot V72.63 PRE-PROCEDURAL LABORATORY EXAMINATION 12/23/2015 BENJIE MERCADO MD Ot V74.8 SCREEN-BACTERIAL DIS NEC 12/23/2015 BENJIE MERCADO MD Ot E04.2 NONTOXIC MULTINODULAR GOITER 12/23/2015 SHANIQUE MARIEE Ot Z12.31 ENCNTR SCREEN MAMMOGRAM FOR MALIGNANT NE 01/22/2016 TREASURE WISE, BENJIE Christianson Ot M77.11 LATERAL EPICONDYLITIS, RIGHT ELBOW 02/10/2016 BENJIE AMANDA MD Ot M77.11 LATERAL EPICONDYLITIS, RIGHT ELBOW 03/22/2016 UMM WALKER MD Ot G62.9 POLYNEUROPATHY, UNSPECIFIED 03/22/2016 UMM WALKER MD Ot R20.0 ANESTHESIA OF SKIN 03/22/2016 UMM WALKER MD Ot R73.03 PREDIABETES 03/22/2016 UMM WALKER MD Ot G62.9 POLYNEUROPATHY, UNSPECIFIED 03/22/2016 UMM WALKER MD Ot R20.0 ANESTHESIA OF SKIN 03/22/2016 UMM WALKER MD Ot R73.03 PREDIABETES 04/13/2016 UMM WALKER MD Ot G62.9 POLYNEUROPATHY, UNSPECIFIED 04/13/2016 UMM WALKER MD Ot R20.0 ANESTHESIA OF SKIN 04/13/2016 UMM WALKER MD Ot R73.03 PREDIABETES 05/19/2016 BENJIE MERCADO MD Ot E04.2 NONTOXIC MULTINODULAR GOITER 08/19/2016 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 Z12.31 ENCNTR SCREEN MAMMOGRAM FOR MALIGNANT NE 04/30/2017 Ot 528.9 ORAL SOFT TISSUE DIS NEC 04/30/2017 Ot 793.82 INCONCLUSIVE MAMMOGRAM 04/30/2017 Ot V76.12 OTH SCREEN MAMMO-MALIGN NEOPLASM OF AUGIE 04/30/2017 Ot 241.1 NONTOX MULTINODUL GOITER 04/30/2017 Ot 793.80 UNSPEC ABNORMAL MAMMOGRAM 04/30/2017 Ot 528.9 ORAL SOFT TISSUE DIS NEC 04/30/2017 ANNETTE WISE, MELINDA Rice Ot 443.9 PERIPH VASCULAR DIS NOS 04/30/2017 ANNETTE WISE, MELINDA Rice Ot 793.89 OTH (ABN) FINDINGS ON RADIOLOGICAL EXAMI 04/30/2017 BENJIE MERCADO MD Ot 241.0 NONTOX UNINODULAR GOITER 04/30/2017 MELINDA BRYANT MD Ot V76.12 OTH SCREEN MAMMO-MALIGN NEOPLASM OF AUGIE 04/30/2017 JESS WISE, BENJIE Christianson Ot 241.1 NONTOX MULTINODUL GOITER 04/30/2017 MELINDA BRYANT MD Ot 793.80 UNSPEC ABNORMAL MAMMOGRAM 04/30/2017 BENJIE MERCADO MD Ot 473.9 CHRONIC SINUSITIS NOS 04/30/2017 BENJIE MERCADO MD Ot 470 DEVIATED NASAL SEPTUM 04/30/2017 BENJIE MERCADO MD Ot 473.9 CHRONIC SINUSITIS NOS 04/30/2017 BENJIE MERCADO MD Ot V72.63 PRE-PROCEDURAL LABORATORY EXAMINATION 04/30/2017 BENJIE MERCADO MD Ot V74.8 SCREEN-BACTERIAL DIS NEC 04/30/2017 BENJIE MERCADO MD Ot E04.2 NONTOXIC MULTINODULAR GOITER 04/30/2017 SHANIQUE MARIEE Ot Z12.31 ENCNTR SCREEN MAMMOGRAM FOR MALIGNANT NE 04/30/2017 UMM WALKER MD Ot G62.9 POLYNEUROPATHY, UNSPECIFIED 04/30/2017 AARON WISE, UMM Roberts Ot R20.0 ANESTHESIA OF SKIN 04/30/2017 UMM WALKER MD Ot R73.03 PREDIABETES 04/30/2017 BENJIE MERCADO MD Ot E04.2 NONTOXIC MULTINODULAR GOITER 04/30/2017 PREETHI BEARDEN APRN Ot Z12.31 ENCNTR SCREEN MAMMOGRAM FOR MALIGNANT NE 04/30/2017 BENJIE MERCADO MD Ot J34.89 OTHER SPECIFIED DISORDERS OF NOSE AND NA 04/30/2017 BENJIE MERCADO MD Ot Z98.890 OTHER SPECIFIED POSTPROCEDURAL STATES 05/05/2017 BENJIE MERCADO MD Ot E04.2 NONTOXIC MULTINODULAR GOITER 06/13/2017 BENJIE MERCADO MD Ot J34.89 OTHER SPECIFIED DISORDERS OF NOSE AND NA 06/13/2017 BENJIE MERCADO MD Ot Z93.8 OTHER ARTIFICIAL OPENING STATUS 09/05/2017 PREETHI BEARDEN APRN Ot Z12.31 ENCNTR SCREEN MAMMOGRAM FOR MALIGNANT NE Procedures There is no data. Results There is no data. Encounters ACCT No. Visit Date/Time Discharge Status Pt. Type Provider Facility Loc./Unit Complaint [id number] 09/02/2017 08:00:00 09/02/2017 23:59:59 CLS Outpatient PREETHI BEARDEN APRN [facility] RAD SCREENING [id number] 06/10/2017 08:20:00 06/10/2017 23:59:59 CLS Outpatient BENJIE MERCADO MD [facility] RAD CHRONIC LT SINUS DRAINAGE [id number] 05/04/2017 09:32:00 05/04/2017 23:59:59 CLS Outpatient BENJIE MERCADO MD [facility] RAD THYROID NODULE [id number] 01/11/2017 08:08:00 01/11/2017 23:59:59 CLS Outpatient BENJIE MERCADO MD [facility] RAD T32.4 [id number] 08/18/2016 08:55:00 08/18/2016 23:59:59 CLS Outpatient PREETHI BEARDEN APRN [facility] RAD SCREENING Z12.31 [id number] 05/18/2016 09:54:00 05/18/2016 23:59:59 CLS Outpatient BENJIE MERCADO MD [facility] RAD THYROID NODULE [id number] 03/19/2016 13:58:00 03/19/2016 23:59:59 CLS Outpatient UMM WALKER MD [facility] RAD WEAKNESS [id number] 01/15/2016 09:01:00 02/10/2016 15:40:00 DIS Outpatient BENJIE AMANDA MD [facility] REHAB LATERAL EPICODYLITIS, RIGHT [id number] 05/28/2015 09:03:00 05/28/2015 23:59:59 CLS Outpatient SHANIQUE MARIEE [facility] RAD SCREENING [id number] 04/11/2015 12:17:00 04/11/2015 23:59:59 CLS Outpatient BENJIE MERCADO MD [facility] RAD MULTINODULAR GOITER [id number] 10/18/2014 06:27:00 10/18/2014 12:02:00 DIS Outpatient BENJIE MERCADO MD [facility] SDC CHRONIC SINUSITIS; DEVIATED SEPTUM [id number] 10/11/2014 10:07:00 10/11/2014 23:59:59 CLS Outpatient BENJIE MERCADO MD [facility] PREOP CHRONIC SINUSITIS; DEVIATED SEPTUM [id number] 10/02/2014 09:37:00 10/02/2014 23:59:59 CLS Outpatient BENJIE MERCADO MD [facility] RAD CHRONIC SINUSITIUS [id number] 04/10/2014 13:49:00 04/10/2014 23:59:59 CLS Outpatient MELINDA BRYANT MD [facility] RAD ABNORMAL MAMMO [id number] 04/04/2014 08:42:00 04/04/2014 23:59:59 CLS Outpatient BENJIE MERCADO MD [facility] RAD MULTI NODULAR GOITER [id number] 04/04/2014 08:39:00 04/04/2014 23:59:59 CLS Outpatient MELINDA BRYANT MD [facility] RAD SCREENING [id number] 03/23/2013 09:55:00 03/23/2013 23:59:59 CLS Outpatient BENJIE MERCADO MD [facility] RAD GOITER [id number] 03/21/2013 08:00:00 03/21/2013 23:59:59 CLS Outpatient MELINDA BRYANT MD [facility] RAD FOLLOW UP ABNORMAL MAMMO [id number] 09/14/2012 10:53:00 09/14/2012 23:59:59 CLS Outpatient MELINDA BRYANT MD [facility] RAD FOLLOW-UP SMALL VESSEL DISEASE [id number] 04/17/2012 13:40:00 Document Registration [id number] 02/10/2012 14:06:00 Document Registration [id number] 02/07/2012 09:58:00 Document Registration [id number] 02/03/2012 07:13:00 Document Registration [id number] 11/25/2011 14:12:00 Document Registration [id number] 09/16/2011 14:25:00 Document Registration [id number] 08/12/2011 10:50:00 Document Registration [id number] 06/30/2011 11:01:00 Document Registration [id number] 05/04/2011 10:29:00 Document Registration [id number] 01/07/2011 07:54:00 Document Registration [id number] 06/02/2010 07:49:00 Document Registration [id number] 12/30/2009 07:48:00 Document Registration [id number] 01/10/2017 14:13:16 01/10/2017 23:59:59 CLS Outpatient
--- OUTSIDE RECORDS SUMMARY | 2017-10-21 16:25 | XMS REPORT | CCD ---
Author [facility] Organization [facility] Address [address] [place] [address] Phone Care Team Providers Care Dolly Driver Name Role Phone PP Unavailable CCM Unavailable Summary Purpose Interface Exchange Insurance Providers Payer name Policy type / Coverage type Covered green party ID Effective Begin Date Effective End Date Blue Cross [facility] Blue Cross/Blue Shield [id number] 2015 Unknown Family history Father Diagnosis Age At Onset Cancer Unknown Mother Diagnosis Age At Onset Stroke Unknown Social History Social History Element Codes Description Effective Dates Marital status Unknown Dennise 08/27/2014 Number of children Unknown 0 08/27/2014 Employment Unknown Currently employed [employer] 08/27/[address]: 151156414 Never smoker 08/27/[address]: 271789404 Never drinks alcohol 08/27/2014 Allergies, Adverse Reactions, [...] patch (1 mg over 3 days) RxNorm: 937047 1 Patch TD Q72H 04/14/2017 05/13/2017 Active clobetasol 0.05 % shampoo RxNorm: 696512 1 Application TOP daily as needed 02/14/2017 09/11/2017 Active clobetasol 0.05 % scalp solution RxNorm: 230654 1 Application TOP BID 02/14/2017 06/13/2017 Active levothyroxine 100 mcg tablet RxNorm: 018531 TAKE ONE TABLET BY MOUTH ONCE DAILY 01/24/2017 No Stop Date Active Acular 0.5 % eye drops RxNorm: 947425 1 Drop(s) OPH daily 01/10 No Stop Date Active amitriptyline 10 mg tablet RxNorm: 300636 TAKE ONE TABLET BY MOUTH ONCE DAILY 12/15/2016 06/12/2017 Active Lipitor 10 mg tablet RxNorm: 576141 TAKE 1 TABLET BY MOUTH DAILY 12/02/2016 05/30/2017 Active Generic For:LIPITOR 10MG TAB 12/01/2016 5:09:29 PM Lipitor 10 mg tablet RxNorm: 543518 TAKE 1 TABLET BY MOUTH DAILY 11/04/2016 12/01/2016 Inactive Generic For:LIPITOR 10MG TAB 11/03/2016 12:46:39 PM sertraline 50 mg tablet RxNorm: 113509 1.5 Tablet(s) PO QHS 03/201605/02/2017 Active Lyrica 50 mg capsule RxNorm: 227133 1 Capsule(s) PO TID 201612/04/2016 Inactive Lyrica 50 mg capsule RxNorm: 887187 1 Capsule(s) PO TID 201612/01/2016 Inactive clobetasol 0.05 % scalp solution RxNorm: 773971 1 Application TOP BID 08/18/2016 12/15/2016 Inactive Lipitor 10 mg tablet RxNorm: 765523 1 Tablet(s) PO daily 201611/03/2016 Inactive Lipitor 10 mg tablet RxNorm: 047640 1 Tablet(s) PO daily 201603/24/2016 Inactive Lipitor 10 mg tablet RxNorm: 400142 1 Tablet(s) PO daily 201607/12/2016 Inactive sertraline 50 mg tablet RxNorm: 876471 1.5 Tablet(s) PO QHS 10/04/2016 Inactive amitriptyline 10 mg tablet RxNorm: 739761 1/2 Tablet(s) PO daily 03/16/2016 No Stop Date Active levothyroxine 100 mcg tablet RxNorm: 897375 TAKE ONE TABLET BY MOUTH ONCE DAILY 01/20/2016 2017 Inactive sertraline 50 mg tablet RxNorm: 811742 1.5 Tablet(s) PO QHS 03/18/2016 Inactive Generic For:ZOLOFT 50 MG TAB 03/17/2015 1:56:21 PM clobetasol 0.05 % scalp solution RxNorm: 584266 1 Application TOP BID 11/20/2015 03/18/2016 Inactive Lyrica 50 mg capsule RxNorm: 331760 1 Capsule(s) PO TID 201509/05/2016 Inactive sertraline 50 mg tablet RxNorm: 434695 1.5 Tablet(s) PO QHS 11/19/2015 Inactive Generic For:ZOLOFT 50 MG TAB 03/17/2015 1:56:21 PM urea 20 % topical cream RxNorm: 403835 1 Application TOP BID 12/17/2015 Inactive clobetasol 0.05 % scalp solution RxNorm: 200360 1 Application TOP BID 11/18/2015 11/19/2015 Inactive sertraline 50 mg tablet RxNorm: 526141 1 Tablet(s) PO QHS TAKE ONE TABLET BY MOUTH AT BEDTIME 10/20/2015 11/17/2015 Inactive Generic For:ZOLOFT 50 MG TAB 03/17 1:56:21 PM Acular 0.5 % eye drops RxNorm: 543388 1 Drop(s) OPH daily 09/0901/09/2017 Inactive amitriptyline 10 mg tablet RxNorm: 816709 Tablet(s) PO daily 03/15/2016 Inactive [SAVINGS FOR NON-COVERED DRUGS -- BIN:[id number], PCN: [id number], Group: XXXXX , ID# [id number], Questions: . THIS IS NOT INSURANCE.] levothyroxine 100 mcg tablet RxNorm: 418732 1 Tablet(s) PO daily 07/30/2015 01/19/2016 Inactive sertraline 50 mg tablet RxNorm: 097794 1 Tablet(s) PO QHS TAKE ONE TABLET BY MOUTH AT BEDTIME 06/17/2015 10/14/2015 Inactive Generic For:ZOLOFT 50 MG TAB 03/17 1:56:21 PM triamcinolone acetonide 0.1 % topical cream RxNorm: 4180263 1 TOP TID as needed 05/09/2015 09/05/2015 Inactive triamcinolone acetonide 0.1 % topical cream RxNorm: 4053620 1 TOP TID as needed 05/09/2015 05/08/2015 Inactive Transderm-Scop 1.5 mg transdermal patch (1 mg over 3 days) RxNorm: 428267 1 Patch TD Q72H 05/06/2015 07/04/2015 Inactive Lyrica 50 mg capsule RxNorm: 763229 1 Capsule(s) PO TID 201506/25/2016 Inactive sertraline 50 mg tablet RxNorm: 432347 TAKE ONE TABLET BY MOUTH AT BEDTIME 03/17/2015 06/14/2015 Inactive Generic For:ZOLOFT 50 MG TAB 03/17/2015 1:56:21 PM sertraline 50 mg tablet RxNorm: 714909 Tablet(s) PO QHS 201403/09/2015 Inactive doxycycline hyclate 100 mg tablet RxNorm: 096136 1 Tablet(s) PO BID 09/11/2014 09/17/2014 Inactive Sandy Allergy 180 mg tablet RxNorm: 513248 1 Tablet(s) PO daily 09/11/2014 10/10/2014 Inactive prednisone 20 mg tablet RxNorm: 636435 1 Tablet(s) PO BID 09/0509/04/2014 Inactive prednisone 20 mg tablet RxNorm: 144103 1 Tablet(s) PO BID 09/0509/09/2014 Inactive levofloxacin 500 mg tablet RxNorm: 792424 1 Tablet(s) PO daily 08/27/2014 09/05/2014 Inactive levothyroxine 100 mcg tablet RxNorm: 775038 1 Tablet(s) PO daily 08/27/2014 11/24/2014 Inactive Sandy-D 12 Hour 60 mg-120 mg tablet,extended release RxNorm: 633567 1 Tablet(s) PO BID 08/27/2014 09/25/2014 Inactive Lyrica 50 mg capsule RxNorm: 139549 1 Capsule(s) PO TID 201411/17/2014 Inactive Lyrica 50 mg capsule RxNorm: 045518 1 Capsule(s) PO TID 201408/19/2014 Inactive sertraline 50 mg tablet RxNorm: 323422 Tablet(s) PO QHS 201408/12/2014 Inactive sertraline 50 mg tablet RxNorm: 512538 Tablet(s) PO QHS 201410/11/2014 Inactive amitriptyline 10 mg tablet RxNorm: 310414 Tablet(s) PO daily 08/09/2014 Inactive [SAVINGS FOR NON-COVERED DRUGS -- BIN:116466, PCN: [id number], Group: XXXXX , ID# [id number], Questions: . THIS IS NOT INSURANCE.] Transderm-Scop 1.5 mg transdermal 72 hour patch RxNorm: 337910 1 TD apply 1 patch to skin behind ear q 3 days, remove old patch 07/11/2014 07/22/2014 Inactive [ SAVINGS FOR NON-COVERED DRUGS -- BIN:950566, PCN: [id number], Group: XXXXX, ID# [id number], Questions: . THIS IS NOT INSURANCE.] Transderm-Scop 1.5 mg transdermal 72 hour patch RxNorm: 261439 1 TD apply 1 patch to skin behind ear q 3 days, remove old patch 07/11/2014 07/10/2014 Inactive amitriptyline 10 mg tablet RxNorm: 674280 1 Tablet(s) PO daily 07/04/2014 07/10/2014 Inactive [SAVINGS FOR NON-COVERED DRUGS -- BIN:425797, PCN: ASPROD1, Group: XXXXX, ID# [id number], Questions: . THIS IS NOT INSURANCE.] amitriptyline 10 mg tablet RxNorm: 377826 1 Tablet(s) PO daily 07/04/2014 07/03/2014 Inactive Zyrtec 10 mg tablet RxNorm: 0618897 1 Tablet(s) PO daily No Start Date Active lutein oral RxNorm: 53889 oral No Start Date Active Flonase Allergy Relief 50 mcg/actuation nasal spray, suspension RxNorm: 3169131 1 [place] NASAL QHS as needed No Start Date Active Vitamin D3 2,000 unit tablet RxNorm: 057295 1 Tablet(s) PO daily No Start Date Active Calcium RxNorm: 1 Tablet(s) PO daily No Start Date Active Gillian Aspirin oral RxNorm: 948650 oral No Start Date Active Acular 0.5 % eye drops RxNorm: 537148 1 Drop(s) OPH daily No Start Date [...] Ord30 C/HDL 4.7 Ratio 03/17/2016 Comp Metabolic Zvp806 NA 137 mEq/L 03/17/2016 Comp Metabolic Jcz558 K 4.2 mEq/L 03/17/2016 Comp Metabolic Buc750 CL 101 mEq/L 03/17/2016 Comp Metabolic Gnj657 CO2 30.0 mEq/L 03/17/2016 Comp Metabolic Bqz854 ANION GAP 10 03/17/2016 Comp Metabolic Fry861 GLUCOSE 93 mg/dL 03/17/2016 Comp Metabolic Hyx264 Creat 0.6 mg/dL 03/17/2016 Comp Metabolic Bke385 eGFR 111 ml/min/1.73m2 03/17/2016 Comp Metabolic Xge424 BUN 13 mg/dL 03/17/2016 Comp Metabolic Occ784 B/C Ratio 21.7 Ratio 03/17/2016 Comp Metabolic Tvv407 CALCIUM 9.4 mg/dL 03/17/2016 Comp Metabolic Bow177 ALK PHOS 68 U/L 03/17/2016 Comp Metabolic Fsh942 AST(SGOT) 20 U/L 03/17/2016 Comp Metabolic Shy986 ALT(SGPT) 21 U/L 03/17/2016 Comp Metabolic Tyy431 BILI T 0.4 mg/dL 03/17/2016 Comp Metabolic Cey660 ALBUMIN 4.4 g/dL 03/17/2016 Comp Metabolic Ane956 TPRO 6.7 g/dL 03/17/2016 Comp Metabolic Vid316 GLOB 2.3 g/dL 03/17/2016 Comp Metabolic Yzc776 A/G Ratio 2.0 Ratio 03/17/2016 Comp Metabolic Lyo932 Osmo 274 mOsmo 03/17/2016 %Hba1C Cag394 % HbA1c 23957-0 5.8 % 03/17/2016 %Hba1C Jud022 Gluc Ave 120 mg/dL 03/17/2016 Tsh Ord6 [...] 28.9 pg 03/17/2016 Cbc With Differential Ord2 Taney% 10.3 % 03/17/2016 Cbc With Differential Ord2 [...] 1.45 K/ul 03/17/2016 Cbc With Differential Ord2 [place] ABS# 0.6 K/ul 03/17/2016 Cbc With Differential Ord2 Eos ABS# 0.2 K/ul 03/17/2016 Cbc With Differential Ord2 Baso ABS# 0.0 K/ul 03/17/2016 Free T4 Pbl371 FREE T4 0.81 ng/dL 03/17/2016 %Hba1C Idm231 % HbA1c 37143-2 6.3 % 11/19/2015 %Hba1C Xtk532 Gluc Ave 134 mg/dL 11/19/2015 %Hba1C Jye185 % HbA1c 96451-9 5.9 % 05/06/2015 %Hba1C Wsc507 Gluc Ave 123 mg/dL 05/06/2015 Review of [...] Codes Date URINALYSIS NONAUTO W/O SCOPE CPT-4: 04580 09/25/2014 Vital Signs Date Vital 03/16/2016 Blood Pressure 1: 128/76 Code : 8480-6 BMI: 27.5 Code : 46004-8 Heart Rate 1 : 72 bpm Height: 5'6" SpO2: 98% Weight: 173 lbs 11/18/2015 Blood Pressure 1: 120/68 Code : 8480-6 BMI: 27.2 Code : 44044-1 Heart Rate 1 : 71 bpm Height: 5'6" SpO2: 98% Weight: 171 lbs 05/06/2015 Blood Pressure 1: 120/72 Code : 8480-6 BMI: 26.2 Code : 31017-5 Heart Rate 1 : 73 bpm Height: 5'6" SpO2: 98% Weight: 165 lbs 09/25/2014 Blood Pressure 1: 120/76 Code : 8480-6 BMI: 27.0 Code : 42526-8 Heart Rate 1 : 79 bpm Height: 5'6" SpO2: 98% Weight: 170 lbs 09/11/2014 Blood Pressure 1: 132/68 Code : 8480-6 BMI: 26.9 Code : 31813-7 Heart Rate 1 : 71 bpm Height: 5'6" SpO2: 97% Weight: 169 lbs 08/27/2014 Blood Pressure 1: 120/64 Code : 8480-6 BMI: 26.6 Code : 27394-0 Heart Rate 1 : 75 bpm Height: [...] data Encounters Encounter Performer Location Codes Date ([id number]) [id number] EST. PATIENT, LEVEL IV Diagnosis: Atrophy of thyroid (acquired)[ICD10: E03.4] Diagnosis: Weakness[ICD10: R53.1] [facility] MD, [facility] CPT-4: 74989 03/16/2016 ([id number]) 73397 EST. PATIENT, LEVEL IV Diagnosis: Other abnormal glucose[ICD10: R73.09] Diagnosis: Atrophy of thyroid (acquired)[ICD10: E03.4] Diagnosis: Psoriasis vulgaris[ICD10: L40.0] Diagnosis: Major depressive disorder, recurrent, mild[ICD10: F33.0] [facility] MD, [facility] CPT-4: 15824 11/18/2015 ([id number]) PREV VISIT EST AGE 40-64 Diagnosis: Encounter for gynecological examination (general) (routine) without abnormal findings[ICD10: Z01.419] Diagnosis: Encounter for screening mammogram for malignant neoplasm of breast[ ICD10: Z12.31] Diagnosis: Other abnormal glucose[ICD10: R73.09] Diagnosis: Encounter for screening for malignant neoplasm of cervix[ICD10: Z12.4 ] [facility] CPT-4: 86732 05/06/2015 ([id number]) 94560 EST. PATIENT, LEVEL III Diagnosis: Dysuria[ICD9: 788.1] [facility] CPT-4: 46598 09/25/2014 ([id number]) 81826 EST. PATIENT, LEVEL III Diagnosis: ACUTE SINUSITIS[ICD9: 461.9] [facility] CPT- 4: 52384 09/11/2014 ([id number]) OFFICE VISIT, NEW - LEVEL 3 Diagnosis: ACUTE SINUSITIS[ICD9: 461.9] [facility] MD, [facility] CPT- 4: 28715 08/27/2014 Plan of Care Planned Activity Notes Codes Status Date Appointment: [facility] [phone] [id number] ([facility] min) Complex 03/16/2016 Patient Education: Patient Medication Summary Completed 03/16/2016 Patient Education: Obesity Completed 03/16/2016 Care Plan: MRI BRAIN STEM W/O DYE Pending 03/16/2016 Patient Education: Patient Medication Summary Completed 11/18/2015 Appointment: Luba Hudson [id number] (15 min) Moderate 11/11/2015 Appointment: Luba Hudson [id number] [facility] 05/06/2015 Patient Education: Patient Medication Summary Completed 05/06/2015 Care Plan: SCREENINGMAMMOGRAPHYDIGITAL LOINC : 18683-7 Ordered 05/06/2015 Care Plan: PAP Pending 05/06/2015 Appointment: Luba Hudson [id number] (30 min) Complex 03/26/2015 Appointment: Luba Hudson [id number] (15 min) Moderate 09/25/2014 Patient Education: Patient Medication Summary Completed 09/25/2014 Appointment: (10 min) Simple 09/11/2014 Patient Education: Patient Medication Summary Completed 09/11/2014 Appointment: Luba Hudson [id number] (10 min) Simple 08/27/2014 Patient Education: Patient Medication Summary Completed 08/27/2014 Instructions No Instructions
[2017-10-21] MEDS: TICAGRELOR 90 MG TABLET (BRILINTA) PO SCH (20:39)
[2017-10-21] MEDS ORDERED: NON-FORMULARY MEDICATION 1 EA EA (Pregabalin (Lyrica) 50 MG) PO SCH (21:00)
[2017-10-21] MEDS ORDERED: ATORVASTATIN 10 MG (LIPITOR) TABLET PO SCH ×2 (21:00)
[2017-10-21] MEDS ORDERED: SERTRALINE 50 MG (ZOLOFT) TABLET PO SCH ×2 (21:00)
[2017-10-21] MEDS ORDERED: PREGABALIN 50 MG (LYRICA) CAP PO SCH ×2 (21:00)
[2017-10-21] MEDS ORDERED: LEVOTHYROXINE 100 MCG (LEVOTHROID) TAB PO SCH ×2 (21:00)
[2017-10-22] VITALS: BP 130/80
[2017-10-22 04:00] VITALS: BP 121/76
[2017-10-22 04:12] LABS: HEMOGLOBIN 12.9 G/DL (11.5-16.0); MEAN PLATELET VOLUME 9.7 FL (7.4-10.4); RED BLOOD COUNT 4.36 10^6/uL (4.35-5.85); RED CELL DISTRIBUTION WIDTH 12.8 % (10.0-14.5); WHITE BLOOD COUNT 7.8 10^3/uL (4.3-11.0)
[2017-10-22 04:28] LABS: BUN/CREATININE RATIO 28; CALCIUM 9.7 MG/DL (8.5-10.1); CARBON DIOXIDE 25 MMOL/L (21-32); CHLORIDE 105 MMOL/L (98-107); CREATININE SERUM 0.57 MG/DL (0.60-1.30); GFR ESTIMATED > 60; GLUCOSE 106 MG/DL (70-105); POTASSIUM 4.3 MMOL/L (3.6-5.0); SODIUM 139 MMOL/L (135-145)
[2017-10-22] MEDS: NS IV 1000 ML 1,000 ML IV SCH (06:14)
[2017-10-22 08:13] VITALS: BP 148/78
[2017-10-22] MEDS: TICAGRELOR 90 MG TABLET (BRILINTA) PO SCH (08:45)
[2017-10-22] MEDS ORDERED: ASPIRIN E.C. 81 MG (ECOTRIN) TAB PO SCH (09:00)
[2017-10-22] MEDS ORDERED: TICA90TA PO (10:20)
--- NOTE | 2017-10-22 10:20 | Discharge Inst-Post CATH ---
Discharge Inst-CATH Post Cardiac Cath D/C Inst Follow Up/Plan Appointment with Dr. Castillo's office in 2-4 weeks CARDIAC CATH DISCHARGE INSTRUCTIONS *Hold Metformin for 48 hours post heart cath. ACTIVITY * Go Home directly and rest. * Limit activity of the leg (or wrist if it was used) for 7 days including aerobics, swimming, jogging, bicycling, etc. * Restrict stair-climbing for 7 days if possible, if not, climb up with your non -cath leg, then bring together on the same step. * Avoid lifting, pushing, pulling or excessive movement of the affected extremity for 7 days. * Customary sexual activity may be resumed after 2 days-use caution not to use a position that strains or causes pain to the affected extremity. * No driving for 24 hours. * NO SMOKING. * Avoid straining for bowel movements for 7 days. * Gentle walking on level ground is allowed. * Returning to work will depend on the type of procedure and the results. Your doctor will discuss this with you. CALL YOUR DOCTOR FOR ANY OF THE FOLLOWING: *If bleeding from the puncture site occurs- Apply gentle pressure to site with clean cloth and call your doctor or EMS. * If a knot or lump forms under the skin, increases in size, or causes pain. * If bruising appears to be worsening or moving further down your leg instead of disappearing. * Temperature above 101 F. CARE OF YOUR GROIN INCISION; * Bruising or purple discoloration of the skin near the puncture site is common. * You may shower only, no bathtub bathing for 5 days. Be careful to avoid slipping as your leg may feel stiff. * If a closure device was used on your femoral artery, please see the attached guide regarding care of the device and your leg. * REMOVE the dressing from your groin the next day after your procedure in the shower. CARE OF YOUR WRIST INCISION; * Bruising or purple discoloration of the skin near the puncture site is common. * You may shower. * DO NOT submerge wrist. * Remove dressing in 24 hours. MARK CASTILLO MD Oct 22, 2017 10:20
--- NOTE | 2017-10-22 10:22 | Cardiology Progress Note ---
Subjective Date Seen by Provider: Oct 22, 2017 Time Seen by Provider: 10:21 Subjective/Events-last exam Patient is feeling better. Groin is healing well. No chest pain. Review of Systems General: No Chills, No Night Sweats, No Fatigue, No Malaise, No Appetite, No Other HEENT: No Head Aches, No Visual Changes, No Eye Pain, No Ear Pain, No Dysphasia , No Sinus Congestion, No Post Nasal Drip, No Sore Throat, No Other Pulmonary: No Dyspnea, No Cough, No Pleuritic Chest Pain, No Other Cardiovascular: No: Chest Pain, Palpitations, Orthopnea, Paroxysmal Noc. Dyspnea, Edema, Lt Headedness, Other Gastrointestinal: No: Nausea, Vomiting, Abdominal Pain, Diarrhea, Constipation , Melena, Hematochezia, Other Objective-Cardiology Exam Last Set of Vital Signs Vital Signs 10/22/17 08:13 Temp 97.5 Pulse 57 Resp 16 B/P (MAP) 148/78 (101) Pulse Ox 94 O2 Delivery Room Air Capillary Refill : Less Than 3 Seconds I&O Intake and Output 10/22/17 00:00 Intake Total 1480 ml Balance 1480 ml Intake Oral 480 ml IV Total 1000 ml # Voids 2 General: Alert, Oriented X3, Cooperative HEENT: Atraumatic, PERRLA Neck: Supple, No JVD, No Thyromegaly Lungs: Clear to Auscultation, Normal Air Movement Heart: Regular Rate, Normal S1, Normal S2, No Murmurs Abdomen: Normal Bowel Sounds, Soft, No Tenderness, No Hepatosplenomegaly, No Masses Extremities: No Clubbing, No Cyanosis, No Edema, Normal Pulses, No Tenderness/ Swelling Skin: No Rashes, No Breakdown, No Significant Lesion Neuro: Normal Gait, Normal Speech, Strength at 5/5 X4 Ext, Normal Tone, Sensation Intact Psych/Mental Status: Mental Status NL, Mood NL Results Lab Laboratory Tests 10/22/17 04:01 A/P-Cardiology Assessment/Plan Chest pain nonspecific etiology, coronary artery disease, improved neck Coronary artery disease status post cardiac catheterization, had an abnormal stress test, stent to the LAD with excellent results, educated in length on compliance with medications. Next 1. Subtotal occlusion at the mid LAD with slow flow, successful balloon to plasty then stent deployment using Alpine 2.7518 mm expanded to 3.0 mm with excellent results and no residual stenosis was noted 2. Mild disease of the proximal/ostial circumflex artery, FFR was done showing 1.0. Nonobstructive disease 3. Large dominant right coronary artery with mild disease nonobstructive disease 4. Normal left ventricular size and systolic function estimated ejection fraction 60 percent Hypertension, restart home medications and monitor next Hyperlipidemia, continue on Lipitor and monitor as an outpatient MARK PERLA MD Oct 22, 2017 10:22
[2017-10-22 11:18] VITALS: BP 148/78
== END 2017-10-22 11:18 | disposition home or self-care (01) ==
LOC: CATH 07:34 → ICU 10:53 → CATH 10-22 11:18
PROVIDERS: ATTEND Internal Medicine Cardiovascular Disease
DX: R07.89 Other chest pain (principal); I25.10 Atherosclerotic heart disease of native coronary artery without angina pectoris; I10 Essential (primary) hypertension; E78.5 Hyperlipidemia, unspecified; R73.03 Prediabetes; G62.9 Polyneuropathy, unspecified; K21.9 Gastro-esophageal reflux disease without esophagitis; E03.9 Hypothyroidism, unspecified; E04.9 Nontoxic goiter, unspecified; Z79.82 Long term (current) use of aspirin; Z79.899 Other long term (current) drug therapy
CPT/HCPCS: 36415; 71045; 80048; 80053; 80061; 85027; 85610; 85730; 87081; 93005; 93458

== ENCOUNTER 2017-12-02 10:12 | Outpatient (RCR) | payer OTHER ==
[~2017-12-02 10:12] MED LIST changes: +ASPI-586 PO; +ATOR10TA66 PO; +CETI10TA17 PO; +CHOL100045 PO; +CINN500C2 PO; +FERR142T7 PO; +GUAI600T43 PO; +LEVO100T7 PO; +NF-MAG64T PO; +PREG50CA2 PO; +SERT50TA9 PO; +TICA90TA PO; +tumeric PO
== END 2017-12-04 | disposition home or self-care (01) ==
LOC: CR 10:12
PROVIDERS: ATTEND Internal Medicine Cardiovascular Disease
DX: Z48.812 Encounter for surgical aftercare following surgery on the circulatory system (principal); Z95.5 Presence of coronary angioplasty implant and graft
CPT/HCPCS: 93798

== ENCOUNTER 2018-02-03 09:29 | Outpatient (RCR) | payer OTHER | END 2018-03-05 | disposition home or self-care (01) | LOC: CR 09:29 | PROVIDERS: ATTEND Internal Medicine Cardiovascular Disease | DX: Z48.812 Encounter for surgical aftercare following surgery on the circulatory system (principal); Z95.5 Presence of coronary angioplasty implant and graft | CPT/HCPCS: 93798 ==

== ENCOUNTER 2018-03-27 08:36 | Outpatient (RCR) | payer OTHER ==
[~2018-03-27 08:36] MED LIST changes: -HYDR-3454 PO; +HYDR-3455 PO
== END 2018-05-17 | disposition home or self-care (01) ==
PROVIDERS: ATTEND Physician Assistant
DX: M70.41 Prepatellar bursitis, right knee (principal)

== ENCOUNTER 2018-05-17 14:32 | Outpatient (RCR) | payer OTHER | END 2018-06-19 13:05 | disposition home or self-care (01) | DX: M25.561 Pain in right knee (principal) ==

== ENCOUNTER 2018-07-07 09:12 | Outpatient (RCR) | payer OTHER | END 2018-07-09 | disposition home or self-care (01) | LOC: CR3 09:12 | PROVIDERS: ATTEND Internal Medicine Cardiovascular Disease | DX: Z29.8 Encounter for other specified prophylactic measures (principal) ==

== ENCOUNTER → 2018-07-17 | Outpatient (CLI) | payer OTHER ==
--- NOTE | 2018-07-17 14:33 | Diagnostic Imaging Report ---
PROCEDURE: US Thyroid. TECHNIQUE: Multiple real-time grayscale images were obtained of the thyroid in various projections. INDICATION: Multinodular goiter, followup. COMPARISON: Correlation is made with prior thyroid ultrasound from 05/04/2017. FINDINGS: The right lobe of the thyroid measures 4.0 x 1.4 x 1.3 cm and the left lobe measures 4.6 x 1.4 x 1.5 cm. Solid nodule in lower pole of left lobe measures 1.5 x 1.3 x 1.5 cm. This compares with approximately 2.3 x 1.6 x 1.3 cm on prior. Hypoechoic nodule along the posterior aspect of the left lobe measures approximately 1.4 x 0.8 x 0.7 cm, stable. This may represent a parathyroid nodule. There is a nodule in the isthmus noted on today's study that measures approximately 1.0 x 0.7 x 0.9 cm. This was not definitely seen on prior exam. Mixed echogenicity nodule in mid right lobe is stable at approximately 0.7 x 0.6 x 0.6 cm. IMPRESSION: Stable bilateral thyroid and parathyroid nodules when compared with exam from 05/04/2017. There appears to be a new nodule in the isthmus approximately 1 cm in size. Continued followup could be performed. Dictated by: Dictated on workstation # [id number]
== END ==
LOC: RAD 12:55
PROVIDERS: ATTEND Otolaryngology Otolaryngology/Facial Plastic Surgery
DX: E04.2 Nontoxic multinodular goiter (principal)
CPT/HCPCS: 76536

== ENCOUNTER 2018-08-02 12:14 | Outpatient (RCR) | payer OTHER | END 2018-08-09 | disposition home or self-care (01) | LOC: CR3 12:14 | PROVIDERS: ATTEND Internal Medicine Cardiovascular Disease | DX: Z29.8 Encounter for other specified prophylactic measures (principal) ==

== ENCOUNTER → 2018-09-22 | Outpatient (RCR) | payer OTHER | END | disposition home or self-care (01) | LOC: CR3 08-23 09:00 | PROVIDERS: ATTEND Internal Medicine Cardiovascular Disease | DX: Z29.8 Encounter for other specified prophylactic measures (principal) ==

== ENCOUNTER → 2018-09-28 | Outpatient (CLI) | payer OTHER ==
--- NOTE | 2018-09-28 19:31 | Diagnostic Imaging Report ---
INDICATION: Screening The current study was also evaluated with a Computer Aided Detection (CAD) system. 3-D Tomographic imaging was also performed. COMPARISON: Comparison is made with prior examinations from 09/02/2017, 08/18/2016, and 05/28/2015. FINDINGS: The fibroglandular tissue is heterogeneously dense bilaterally. There are scattered benign-type calcifications. There is no dominant mass, spiculated lesion, or suspicious calcification identified. Skin, nipples, and axillae are unremarkable. IMPRESSION: Benign. ACR BI-RADS Category 2: Benign findings. Result letter will be mailed to the patient. Note: At least 10% of breast cancer is not imaged by mammography. Dictated by: Dictated on workstation # [id number]
== END ==
LOC: RAD 07:55
PROVIDERS: ATTEND Family Medicine
DX: Z12.31 Encounter for screening mammogram for malignant neoplasm of breast (principal)
CPT/HCPCS: 77067

== ENCOUNTER 2018-10-13 14:07 | Outpatient (RCR) | payer OTHER | END 2018-11-01 | disposition home or self-care (01) | LOC: CR3 14:07 | PROVIDERS: ATTEND Internal Medicine Cardiovascular Disease | DX: Z29.8 Encounter for other specified prophylactic measures (principal) ==

== ENCOUNTER 2018-12-08 11:14 | Outpatient (RCR) | payer OTHER | END 2019-01-05 | disposition home or self-care (01) | LOC: CR3 11:14 | PROVIDERS: ATTEND Internal Medicine Cardiovascular Disease | DX: Z29.8 Encounter for other specified prophylactic measures (principal); Z95.5 Presence of coronary angioplasty implant and graft ==

== ENCOUNTER 2019-01-24 11:23 | Outpatient (RCR) | payer OTHER | END 2019-02-09 | disposition home or self-care (01) | LOC: CR3 11:23 | PROVIDERS: ATTEND Internal Medicine Cardiovascular Disease | DX: Z29.8 Encounter for other specified prophylactic measures (principal) ==

== ENCOUNTER 2019-02-12 15:00 | Outpatient (RCR) | payer OTHER | END 2019-03-14 | disposition home or self-care (01) | LOC: CR3 15:00 | PROVIDERS: ATTEND Internal Medicine Cardiovascular Disease | DX: Z29.8 Encounter for other specified prophylactic measures (principal) ==

== ENCOUNTER → 2019-10-26 | Outpatient (CLI) | payer OTHER ==
--- NOTE | 2019-10-26 16:50 | Diagnostic Imaging Report ---
PROCEDURE: US Thyroid. TECHNIQUE: Multiple real-time grayscale images were obtained of the thyroid in various projections. INDICATION: Thyroid nodules, followup. Correlation is made with prior thyroid ultrasound from 07/17/2018. Right lobe of thyroid measures 4.3 x 1.7 x 1.1 cm and the left lobe measures 4.5 x 1.6 x 1.4 cm. There are 2 subcentimeter nodules within the right lobe measuring 5 mm and 7 mm in size. A nodule in the left aspect of the isthmus is stable at approximately 9 mm. A dominant nodule lower pole left lobe of the thyroid measures 1.5 x 1.2 x 1.1 cm compared with 1.5 x 1.3 x 1.5 cm as on prior. Tiny subcentimeter nodule upper pole left lobe is also noted, stable. IMPRESSION: Bilateral thyroid nodules, similar to examination from 07/17/2018. Dominant nodule lower pole left lobe is stable. Dictated by: Dictated on workstation # [id number]
== END ==
LOC: RAD 14:30
PROVIDERS: ATTEND Otolaryngology Otolaryngology/Facial Plastic Surgery
DX: E04.2 Nontoxic multinodular goiter (principal)
CPT/HCPCS: 76536

== ENCOUNTER → 2019-10-26 | Outpatient (CLI) | payer OTHER ==
--- NOTE | 2019-10-29 09:55 | Diagnostic Imaging Report ---
INDICATION: Routine screening. COMPARISON: 09/28/2018 and 09/02/2017. TECHNIQUE: 2D and 3D bilateral screening mammography was performed with CAD. FINDINGS: Both breasts are heterogeneously dense, limiting the sensitivity of mammography. Benign calcifications in both breasts are again noted. No mass or malignant appearing microcalcifications are seen. The axillae are unremarkable. IMPRESSION: No mammographic features suspicious for malignancy are identified. ACR BI-RADS Category 2: Benign findings. Result letter will be mailed to the patient. Note: At least 10% of breast cancer is not imaged by mammography. Dictated by: Dictated on workstation # [id number]
== END ==
LOC: RAD 14:52
PROVIDERS: ATTEND Nurse Practitioner Family
DX: Z12.31 Encounter for screening mammogram for malignant neoplasm of breast (principal)
CPT/HCPCS: 77063; 77067

== ENCOUNTER 2020-03-10 20:24 | Emergency (ER) | payer OTHER ==
[~2020-03-10] VITALS: Ht 170.2 cm; Wt 72.6 kg
--- NOTE | 2020-03-10 20:39 | ED Upper Extremity ---
General Chief Complaint: Laceration Stated Complaint: R THUMB LAC Source: patient Exam Limitations: no limitations History of Present Illness Date Seen by Provider: Mar 10, 2020 Time Seen by Provider: 20:36 Initial Comments To ER with a skin avulsion to the pad of the right thumb from a mandolin just prior to arrival. Tetanus is not up-to-date. Onset: just prior to arrival Severity: moderate Pain/Injury Location: right thumb Method of Injury: unknown Allergies and Home Medications Allergies Coded Allergies: No Known Drug Allergies (Verified , 01/09/08) Home Medications Aspirin 81 Mg Tablet.dr, 81 MG PO HS, (Reported) Atorvastatin Calcium 10 Mg Tablet, 10 MG PO HS, (Reported) Cetirizine HCl 10 Mg Tablet, 10 MG PO HS, (Reported) Cholecalciferol (Vitamin D3) 1,000 Unit Tablet, 1,000 UNIT PO HS, (Reported) Cinnamon Bark 500 Mg Capsule, 500 MG PO BID, (Reported) Ferrous Sulfate 142 Mg Tablet.er, 142 MG PO HS, (Reported) Guaifenesin 600 Mg Tab.er.12h, 600 MG PO BID, (Reported) Levothyroxine Sodium 100 Mcg Tablet, 100 MCG PO HS, (Reported) Magnesium Chloride 64 Mg Tab, 64 MG PO DAILY, (Reported) Pregabalin 50 Mg Capsule, 50 MG PO HS, (Reported) Sertraline HCl 50 Mg Tablet, 75 MG PO HS, (Reported) Ticagrelor 90 Mg Tablet, 90 MG PO BID Prescribed by: MARK PERLA on 10/22/17 1020 [tumeric] , 1 TAB PO DAILY, (Reported) Patient Home Medication List Home Medication List Reviewed: Yes Review of Systems Constitutional: see HPI EENTM: see HPI Respiratory: no symptoms reported Cardiovascular: no symptoms reported Genitourinary: no symptoms reported Musculoskeletal: no symptoms reported Skin: see HPI Past Qmkhtgp-Hzdtpr-Gwxqns Hx Patient Social History Alcohol Use: Denies Use Recreational Drug Use: No Smoking Status: Never a Smoker Recent Foreign Travel: No Contact w/Someone Who Travel: No Recent Hopitalizations: No Immunizations Up To Date Tetanus Booster (TDap): More than 5yrs PED Vaccines UTD: Yes Past Medical History Surgeries: Yes (NEUROMA LEFT FOOT, RIGHT ENDOSCOPIC SINUS SURG) Respiratory: No Cardiac: No Neurological: No Reproductive Disorders: No Female Reproductive Disorders: Denies Sexually Transmitted Disease: No HIV/AIDS: No Gastrointestinal: No Musculoskeletal: Yes (STAETS NEUROPATHY FEET, FALL 20YRS AGO-SLIGHT NECK BACK PROBLEMS) Endocrine: Yes Hypothyroidsim Loss of Vision: Bilateral Hearing Impairment: Denies Cancer: No Psychosocial: Yes Anxiety, Depression Integumentary: No Blood Disorders: Yes Adverse Reaction/Blood Tranf: No Physical Exam Vital Signs Capillary Refill : Height, Weight, BMI Height: 5'7.00" Weight: 179lbs. 0.0oz. 81.388348cb; 28.0 BMI Method: General Appearance: WD/WN Respiratory: no respiratory distress, no accessory muscle use Shoulder: normal inspection, non-tender Wrist: Yes normal inspection, Yes non-tender Hand: Right, laceration (There is a less than 1 cm skin avulsion to the pad of the right thumb with persistent oozing of blood. For the sake of hemostasis a tourniquet was applied this was scrubbed with chlorhexidine/saline solution and then Dermabond was applied.) Neurologic/Psychiatric: alert, normal mood/affect, oriented x 3 Skin: normal color, warm/dry Progress/Results/Core Measures Results/Orders My Orders Orders - NATALIA BETH APRN Dipht,Pertuss(Acell),Tet Adult (Boostrix (03/10/20 20:45) Departure Impression Primary Impression: Skin avulsion Disposition: 01 HOME, SELF-CARE Condition: Stable Departure-Patient Inst. Decision time for Depature: 20:38 Referrals: [facility] WALKER MD (PCP/Family) Primary Care Physician Patient Instructions: Laceration Repair With Glue (DC) Add. Discharge Instructions: Do not apply any lotions or ointments or other creams to this. This glue will fall off on its own in 3 to 5 days. You can shower allowing water to run over this starting this evening but do not soak it in water. All discharge instructions reviewed with patient and/or family. Voiced understanding. NATALIA BETH APRN Mar 10, 2020 20:39
[2020-03-10] MEDS ORDERED: TETANUS,DIPTH,PERTUSS P/F (BOOSTRIX) 0.5 ML VIAL IM ONE (20:45)
[2020-03-10 21:29] VITALS: BP 127/67
== END 2020-03-10 21:29 | disposition home or self-care (01) ==
LOC: EDUNIT# 20:24 → ER 20:26
DX: S61.011A Laceration without foreign body of right thumb without damage to nail, initial encounter (principal); E03.9 Hypothyroidism, unspecified; F41.9 Anxiety disorder, unspecified; F32.9 Major depressive disorder, single episode, unspecified; Z23 Encounter for immunization; Z79.82 Long term (current) use of aspirin; Z79.890 Hormone replacement therapy; W26.8XXA Contact with other sharp object(s), not elsewhere classified, initial encounter
CPT/HCPCS: 90715

== ENCOUNTER 2020-09-06 20:59 | Emergency (ER) | payer OTHER ==
[~2020-09-06] VITALS: Ht 170 cm; Wt 72.6 kg
[~2020-09-06 20:59] MED LIST changes: +SERT-413 PO; -SERT50TA9 PO
[2020-09-06 21:11] VITALS: BP 130/68
--- NOTE | 2020-09-06 22:04 | ED EENT ---
History of Present Illness General Chief Complaint: Ear Problems Stated Complaint: R EAR PRESSURE Nursing Triage Note: C/O INTERMITTANT RIGHT EAR PRESSURE SINCE TUESDAY. Source: patient Exam Limitations: no limitations History of Present Illness Date Seen by Provider: Sep 06, 2020 Time Seen by Provider: 21:58 Initial Comments C/o right ear pressure since tuesday. Timing/Duration: abrupt Severity: moderate Location: ear (R) Prearrival Treatment: no prearrival treatment Associated Symptoms: denies symptoms Allergies and Home Medications Allergies Coded Allergies: No Known Drug Allergies (Verified , 01/09/08) Home Medications Aspirin 81 Mg Tablet.dr, 81 MG PO HS, (Reported) Atorvastatin Calcium 10 Mg Tablet, 10 MG PO HS, (Reported) Cetirizine HCl 10 Mg Tablet, 10 MG PO HS, (Reported) Cholecalciferol (Vitamin D3) 1,000 Unit Tablet, 1,000 UNIT PO HS, (Reported) Cinnamon Bark 500 Mg Capsule, 500 MG PO BID, (Reported) Ferrous Sulfate 142 Mg Tablet.er, 142 MG PO HS, (Reported) Guaifenesin 600 Mg Tab.er.12h, 600 MG PO BID, (Reported) Levothyroxine Sodium 100 Mcg Tablet, 100 MCG PO HS, (Reported) Magnesium Chloride 64 Mg Tab, 64 MG PO DAILY, (Reported) Pregabalin 50 Mg Capsule, 50 MG PO HS, (Reported) Sertraline HCl 50 Mg Tablet, 75 MG PO HS, (Reported) Ticagrelor 90 Mg Tablet, 90 MG PO BID Prescribed by: MARK PERLA on 10/22/17 1020 [tumeric] , 1 TAB PO DAILY, (Reported) Patient Home Medication List Home Medication List Reviewed: Yes Review of Systems Review of Systems Constitutional: see HPI Eyes: No Symptoms Reported Ears: No Symptoms Reported Nose: no symptoms reported Mouth: no symptoms reported Throat: no symptoms reported Respiratory: no symptoms reported Cardiovascular: no symptoms reported Musculoskeletal: no symptoms reported Past Shgaqsz-Hxlcpl-Hpuyxn Hx Patient Social History Tobacco Use?: No Smoking Status: Never a Smoker Use of E-Cig and/or Vaping dev: No Substance use?: No Alcohol Use?: No Pt feels they are or have been: No Immunizations Up To Date Tetanus Booster (TDap): More than 5yrs PED Vaccines UTD: Yes Past Medical History Surgeries: Yes (NEUROMA LEFT FOOT, RIGHT ENDOSCOPIC SINUS SURG) Respiratory: No Cardiac: No Neurological: No Reproductive Disorders: No Female Reproductive Disorders: Denies Sexually Transmitted Disease: No HIV/AIDS: No Gastrointestinal: No Musculoskeletal: Yes (STAETS NEUROPATHY FEET, FALL 20YRS AGO-SLIGHT NECK BACK PROBLEMS) Endocrine: Yes Hypothyroidsim Loss of Vision: Bilateral Hearing Impairment: Denies Cancer: No Psychosocial: Yes Anxiety, Depression Integumentary: No Blood Disorders: Yes Adverse Reaction/Blood Tranf: No Physical Exam Vital Signs Vital Signs - First Documented 09/06/20 21:11 Temp 36.6 Pulse 66 Resp 16 B/P (MAP) 130/68 (88) Pulse Ox 99 O2 Delivery Room Air Height, Weight, BMI Height: 5'7.00" Weight: 179lbs. 0.0oz. 81.912106td; 25.00 BMI Method: General Appearance: WD/WN, no apparent distress Eyes: bilateral eye normal inspection, bilateral eye PERRL, bilateral eye EOMI Ears: right ear other (The right ear canal is impacted with cerumen which obscures view of the tympanic membrane. Using a mixture of warm water and hydrogen peroxide this was irrigated. She had improvement nearly immediately in her symptoms and hearing. There is still some cerumen within the canal and I am able to visualize the posterior half of the tympanic membrane. The anterior half remains obscured from view. The visualized TM appears normal, the external canal slightly erythematous behind the impaction); left ear canal normal; bilateral ear auricle normal, bilateral ear TM normal Mouth/Throat: normal mouth inspection, pharynx normal Neck: non-tender, full range of motion Respiratory: no respiratory distress, no accessory muscle use Neurologic/Psychiatric: alert, normal mood/affect, oriented x 3 Skin: normal color, warm/dry Progress/Results/Core Measures Results/Orders My Orders Orders - NATALIA BETH APRN Ciprofloxacin 0.3% Ophth Soln (Ciloxan 0 (09/07/20 09:00) Neomy/Poly/Hc Otic Suspension (Cortispor (09/07/20 09:00) Neomy/Poly/Hc Otic Suspension (Cortispor (09/06/20 22:15) Gold/Poly/Gram Ophthalmic Soln (Neosporin (09/06/20 22:18) Vital Signs/I&O Blood Pressure Mean: 88 Departure Communication (Admissions) rrigated with warm water/H2O2 solution. Impression Primary Impression: Impacted cerumen Qualified Codes: H61.21 - Impacted cerumen, right ear Additional Impression: Otitis externa Qualified Codes: H60.501 - Unspecified acute noninfective otitis externa, right ear Disposition: HOME, SELF-CARE Condition: Stable Departure-Patient Inst. Decision time for Depature: 22:05 Referrals: [facility] WALKER MD (PCP/Family) Primary Care Physician Patient Instructions: Ear Wax Impaction, Outer Ear Infection ED Add. Discharge Instructions: Use the antibiotic drops, 4 drops right ear 4x daily for 3 days All discharge instructions reviewed with patient and/or family. Voiced understanding. NATALIA BETH COP BRE[employer]ER Sep 06, 2020 22:04
[2020-09-06] MEDS ORDERED: NEO/POLYM/GRAM (NEOSPORIN) OPHTH SOLN 10ML ONE (22:18)
[2020-09-06] MEDS: NEOMY/POLYM/HC (CORTISPORIN) 10 ML BTL OT SCH ×2 (22:21→22:22)
[2020-09-07] MEDS ORDERED: CIPROFLOXACIN 0.3% (CILOXAN) 2.5 ML BTL RIGHT EAR SCH (09:00)
[2020-09-07] MEDS ORDERED: NEOMY/POLYM/HC (CORTISPORIN) 10 ML BTL OT SCH (09:00)
== END 2020-09-06 22:23 | disposition home or self-care (01) ==
LOC: EDUNIT# 20:59 → ER 21:00
DX: H61.21 Impacted cerumen, right ear (principal); H60.91 Unspecified otitis externa, right ear; F41.9 Anxiety disorder, unspecified; F32.9 Major depressive disorder, single episode, unspecified; E03.9 Hypothyroidism, unspecified; Z79.890 Hormone replacement therapy; Z79.82 Long term (current) use of aspirin; Z79.899 Other long term (current) drug therapy
CPT/HCPCS: 99283

== ENCOUNTER → 2020-11-05 | Outpatient (CLI) | payer OTHER | LOC: RAD 13:52 | PROVIDERS: ATTEND Family Medicine | DX: Z12.31 Encounter for screening mammogram for malignant neoplasm of breast (principal) ==

== ENCOUNTER → 2020-11-05 | Outpatient (CLI) | payer OTHER ==
--- NOTE | 2020-11-05 17:10 | Diagnostic Imaging Report ---
INDICATION: THYROID NODULES TECHNIQUE: Grayscale sonographic images of the thyroid gland. CORRELATION STUDY: 10/26/2019 FINDINGS: RIGHT LOBE: 3.9 x 1.5 x 1.2 cm. 2 heterogeneous relatively hypoechoic solid nodules are present. One superiorly 0.8 x 0.7 x 0.6 cm, smaller one at the mid aspect 0.5 x 0.5 x 0.6 cm. Appearing generally stable. LEFT LOBE: 5.0 x 2.0 x 1.4 cm. Dominant slight heterogeneous solid nodule at the inferior pole 1.5 x 1.3 x 1.1 cm (previously 1.5 x 1.2 x 1.1 cm). Additional small hypoechoic nodule near the left lateral isthmus 0.9 x 0.8 x 0.8 cm (previously 0.9 cm). Additional small hypoechoic nodule centrally up to 0.5 cm also present. Isthmus appears unremarkable. IMPRESSION: Bilateral thyroid nodules overall appear generally stable from prior study. Dominant nodule remains in the lower left pole. Over the course of multiple prior studies, there has been some variation in this dominant nodule. Currently appearing generally stable from most recent imaging. 6-12 month followup assessment recommended. (Normal gland size: 4-5 x 2 x 2 cm) Dictated by: Dictated on workstation # [id number]
--- NOTE | 2020-11-06 09:21 | Diagnostic Imaging Report ---
Indication: Routine screening. Comparison is made with prior mammogram from the 10/26/2019 and 09/28/2018. 2-D and 3-D bilateral screening mammography was performed with CAD. Both breasts are heterogeneously dense, limiting the sensitivity of mammography. No mass or malignant-appearing microcalcifications are seen. There are benign calcifications present. Axillae are unremarkable. Impression: BI-RADS Category 2 No mammographic features suspicious for malignancy are identified. ACR BI-RADS Category 2: Benign findings. Result letter will be mailed to the patient. Note: At least 10% of breast cancer is not imaged by mammography. Dictated by: Dictated on workstation # [id number]
== END ==
LOC: RAD 14:00
PROVIDERS: ATTEND Otolaryngology Otolaryngology/Facial Plastic Surgery
DX: Z12.31 Encounter for screening mammogram for malignant neoplasm of breast (principal); E04.2 Nontoxic multinodular goiter
CPT/HCPCS: 76536; 77063; 77067

== ENCOUNTER 2021-09-02 14:37 | Outpatient (RCR) | payer OTHER ==
[~2021-09-02 14:37] MED LIST changes: +FERR142T17 PO; -FERR142T7 PO
== END 2021-09-03 | disposition home or self-care (01) ==
LOC: CR3 14:37
PROVIDERS: ATTEND Internal Medicine Cardiovascular Disease
DX: Z29.8 Encounter for other specified prophylactic measures (principal)

== ENCOUNTER 2021-10-30 14:17 | Outpatient (RCR) | payer OTHER | END 2021-11-03 | disposition home or self-care (01) | LOC: CR3 14:17 | PROVIDERS: ATTEND Internal Medicine Cardiovascular Disease | DX: Z29.8 Encounter for other specified prophylactic measures (principal) ==

== ENCOUNTER 2021-12-25 14:01 | Outpatient (RCR) | payer OTHER | END 2022-01-03 | disposition home or self-care (01) | LOC: CR3 14:01 | PROVIDERS: ATTEND Internal Medicine Cardiovascular Disease | DX: Z29.8 Encounter for other specified prophylactic measures (principal) ==

== ENCOUNTER 2022-02-24 14:02 | Outpatient (RCR) | payer OTHER | END 2022-03-05 | disposition home or self-care (01) | LOC: CR3 14:02 | PROVIDERS: ATTEND Internal Medicine Cardiovascular Disease | DX: Z29.8 Encounter for other specified prophylactic measures (principal) ==

== ENCOUNTER → 2022-03-09 | Outpatient (CLI) | payer OTHER ==
--- NOTE | 2022-03-10 09:15 | Diagnostic Imaging Report ---
INDICATION: Routine screening. Comparison is made with prior mammogram 11/05/2020 and 10/26/2019. 2-D and 3-D bilateral screening mammography was performed with CAD. CAD is utilized. The current study was also evaluated with a Computer Aided Detection (CAD) system. Both breasts are heterogeneously dense, limiting the sensitivity of mammography. The parenchymal pattern is stable. No new mass or malignant-appearing microcalcifications are seen. There are benign calcifications present. Axillae are unremarkable. IMPRESSION: BI-RADS Category 2 No mammographic features suspicious for malignancy are identified. ACR BI-RADS Category 2: Benign findings. Result letter will be mailed to the patient. Note: At least 10% of breast cancer is not imaged by mammography. Dictated by: Dictated on workstation # [id number]
== END ==
LOC: RAD 10:45
PROVIDERS: ATTEND Nurse Practitioner Family
DX: Z12.31 Encounter for screening mammogram for malignant neoplasm of breast (principal)
CPT/HCPCS: 77063; 77067

== ENCOUNTER 2022-04-16 14:48 | Outpatient (RCR) | payer OTHER | END 2022-05-06 | disposition home or self-care (01) | LOC: CR3 14:48 | PROVIDERS: ATTEND Internal Medicine Cardiovascular Disease | DX: Z29.8 Encounter for other specified prophylactic measures (principal) ==

== ENCOUNTER → 2022-04-23 | Outpatient (CLI) | payer OTHER ==
--- NOTE | 2022-04-23 16:43 | Diagnostic Imaging Report ---
PROCEDURE: US Thyroid. TECHNIQUE: Multiple real-time grayscale images were obtained of the thyroid in various projections. INDICATION: Follow-up thyroid nodules. COMPARISON: 11/05/2020. FINDINGS: Both thyroid lobes demonstrate heterogeneous background echotexture. Color flow Doppler demonstrates normal and symmetric vascularity bilaterally. The right lobe measures 3.8 cm in length, 1.6 cm AP, and 1.3 cm transverse. The left lobe measures 5.1 cm in length, 1.7 cm AP, and 1.3 cm transverse. The isthmus measures 0.3 cm. Solid isoechoic nodules are seen in both lobes of the thyroid. The largest in the inferior pole of the left lobe of the thyroid measures 1.5 x 1.3 x 1.1 cm. The largest in the right lobe of the thyroid measures 0.8 x 0.7 x 0.6 cm. IMPRESSION: Solid thyroid nodules, bilaterally, the largest measuring 1.5 cm in the inferior pole of the left lobe of the thyroid. Based on imaging characteristics and size criteria, follow-up in 12 months is recommended with thyroid ultrasound. Dictated by: Dictated on workstation # [id number]
== END ==
LOC: RAD 11:00
PROVIDERS: ATTEND Otolaryngology Otolaryngology/Facial Plastic Surgery
DX: E04.2 Nontoxic multinodular goiter (principal)
CPT/HCPCS: 76536

== ENCOUNTER 2022-05-21 14:35 | Outpatient (RCR) | payer OTHER | END 2022-07-04 | disposition home or self-care (01) | LOC: CR3 14:35 | PROVIDERS: ATTEND Internal Medicine Cardiovascular Disease | DX: Z29.8 Encounter for other specified prophylactic measures (principal) ==

== ENCOUNTER → 2022-09-03 | Outpatient (RCR) | payer OTHER | END | disposition home or self-care (01) | LOC: CR3 07-19 15:23 | PROVIDERS: ATTEND Internal Medicine Cardiovascular Disease | DX: Z29.8 Encounter for other specified prophylactic measures (principal) ==

== ENCOUNTER 2022-10-22 14:59 | Outpatient (RCR) | payer OTHER | END 2022-11-03 | disposition home or self-care (01) | LOC: CR3 14:59 | PROVIDERS: ATTEND Internal Medicine Cardiovascular Disease | DX: Z29.8 Encounter for other specified prophylactic measures (principal) ==

== ENCOUNTER → 2023-02-08 | Outpatient (CLI) | payer OTHER | LOC: CARD 09:19 | PROVIDERS: ATTEND Internal Medicine Cardiovascular Disease | DX: I10 Essential (primary) hypertension (principal); I25.10 Atherosclerotic heart disease of native coronary artery without angina pectoris | CPT/HCPCS: 93306 ==